=== PATIENT | female | born 1940 | race Two or more races ===

== ENCOUNTER 2016-10-05 11:41 | Inpatient (IN) | payer MEDICARE ==
[~2016-10-05] VITALS: Ht 160 cm; Wt 68.0 kg
[2016-10-05] MEDS ORDERED: VITAMIN D22000 UNIT PO (11:49)
[2016-10-05] MEDS ORDERED: LEVOTHYROXINE88 MCG ORAL (11:49)
[2016-10-05] MEDS ORDERED: IBUPROFEN600 MG ORAL (11:49)
[2016-10-05] MEDS ORDERED: NORCO 5-325 TA1 EACH ORAL (11:49)
[2016-10-05 12:19] VITALS: BP 150/72
--- NOTE | 2016-10-05 12:26 | Emergency Room Report ---
History of Present Illness General Chief Complaint: Altered Level of Consciousness Source: EMS Present Illness HPI Patient was brought in by paramedics Her portable patient was found in front of a lawn unclear if this was the patient's lawn or other Patient herself is confused and cannot provide full history She had paperwork from [place] For a recent discharge Otherwise no reports of trauma at the scene as far as any bleeding There was no reports of vomiting or diarrhea History of present illness significantly limited given the patient's mentation Allergies: Coded Allergies: No Known Allergies (Unverified , 10/05/16) Patient History Past Medical History: see triage record Pertinent Family History: none Reviewed Nursing Documentation: PMH: Agreed, PSxH: Agreed Nursing Documentation-PMH Past Medical History: Deferred Review of Systems All Other Systems: limited - Other than the ones mentioned in the history of present illness all others are reviewed however they do stay limited due to the patient's mental status Physical Exam Vital Signs Date Time Temp Pulse Resp B/P Pulse Ox O2 Delivery O2 Flow Rate FiO2 10/05/16 11:41 96.6 88 24 150/72 100 Room Air Sp02 EP Interpretation: reviewed, normal General Appearance: no apparent distress Head: normocephalic, atraumatic, other - There was a mild ecchymosis right upper maxillary area Eyes: bilateral eye EOMI, bilateral eye PERRL - Pupils approximately 2 mm and sluggishly reactive ENT: normal pharynx, no angioedema Neck: supple Respiratory: lungs clear, normal breath sounds Cardiovascular #1: regular rate, rhythm Gastrointestinal: non tender, soft Musculoskeletal: swelling - On reevaluation also pain joint discomfort on the right upper shoulder, other - Patient with a trying from physical stimuli, protecting airway Neurologic: responsive Skin: no rash, warm/dry Lymphatic: no adenopathy Procedures Splinting Splinting : Consent: Verbal Pre-Made Type: velcro Splint: Shoulder immobilizer Pre-Proc Neuro Vasc Exam: normal Post-Proc Neuro Vasc Exam: normal Patient Tolerated: Well Complications: None Medical Decision Making Diagnostic Impression: Primary Impression: Syncope Additional Impressions: Shoulder fracture, right Orbital wall fracture Hypokalemia ER Course Patient is complex with multiple differentials considered including but not limited to intracranial, cardiac, metabolic infectious pathology Requiring multiple imaging and blood work Patient's right shoulder x-ray does show findings of acute fracture CT head does not show any acute hemorrhage however there is a inferior wall fracture patient does maintain full range of motion of the eyes Blood work reveals low potassium which was replaced patient further IV hydrated Multiple abnormalities found in requires admission for further care Labs Test 10/05/16 12:09 10/05/16 13:30 White Blood Count 7.6 K/UL (4.8-10.8) Red Blood Count 4.15 M/UL (4.20-5.40) Hemoglobin 10.1 G/DL (12.0-16.0) Hematocrit 32.9 % (37.0-47.0) Mean Corpuscular Volume 79 FL (80-99) Mean Corpuscular Hemoglobin 24.2 PG (27.0-31.0) Mean Corpuscular Hemoglobin Concent 30.5 G/DL (32.0-36.0) Red Cell Distribution Width 18.3 % (11.6-14.8) Platelet Count 302 K/UL (150-450) Mean Platelet Volume 6.4 FL (6.5-10.1) Neutrophils (%) (Auto) 65.0 % (45.0-75.0) Lymphocytes (%) (Auto) 27.4 % (20.0-45.0) Monocytes (%) (Auto) 5.6 % (1.0-10.0) Eosinophils (%) (Auto) 0.8 % (0.0-3.0) Basophils (%) (Auto) 1.3 % (0.0-2.0) Prothrombin Time 10.2 SEC (9.30-11.50) Prothromb Time International Ratio 1.0 (0.9-1.1) Activated Partial Thromboplast Time 25 SEC (23-33) Urine Color Pale yellow Urine Appearance Clear Urine pH 7 (4.5-8.0) Urine Specific [place] 1.010 (1.005-1.035) Urine Protein Negative (NEGATIVE) Urine Glucose (UA) Negative (NEGATIVE) Urine Ketones Negative (NEGATIVE) Urine Occult Blood Negative (NEGATIVE) Urine Nitrite Negative (NEGATIVE) Urine Bilirubin Negative (NEGATIVE) Urine Urobilinogen Normal MG/DL (0.0-1.0) Urine Leukocyte Esterase Negative (NEGATIVE) Sodium Level 140 mEQ/L (135-145) Potassium Level 2.9 mEQ/L (3.4-4.9) Chloride Level 100 mEQ/L (98-107) Carbon Dioxide Level 20 mEQ/L (20-30) Anion Gap 20 (5-15) Blood Urea Nitrogen 11 mg/dL (7-23) Creatinine 0.7 mg/dL (0.5-0.9) Estimat Glomerular Filtration Rate mL/min (>60) Glucose Level 176 mg/dL (74-106) Lactic Acid Level 3.60 mmol/L (0.66-2.22) 2.20 mmol/L (0.66-2.22) Calcium Level 9.1 mg/dL (8.6-10.2) Total Bilirubin < 0.2 mg/dL (0.0-1.2) Aspartate Amino Transf (AST/SGOT) 19 U/L (5-40) Alanine Aminotransferase (ALT/SGPT) 18 U/L (3-33) Alkaline Phosphatase 95 U/L (35-104) Total Creatine Kinase 83 U/L (26-140) Creatine Kinase MB < 1.5 ng/mL (< 3.8) Creatine Kinase MB Relative Index 1.8 Troponin I < 0.30 ng/mL (<=0.30) Pro-B-Type Natriuretic Peptide 200 pg/mL (0-450) Total Protein 6.6 g/dL (6.6-8.7) Albumin 3.8 g/dL (3.5-5.2) Globulin 2.8 g/dL Albumin/Globulin Ratio 1.3 (1.0-2.7) Lipase 28 U/L (< 60) Rhythm Strip Diag. Results EP Interpretation: yes Rate: 88 Rhythm: NSR, no PVC's, no ectopy Chest X-Ray Diagnostic Results EP Interpretation: Yes Findings: no consolidation, no effusion, no pneumothorax, other - right shoulder fracture Other X-Ray Diagnostic Results Other X-Ray Diagnostic Results : EP Interpretation: Yes Findings: no soft tissue swelling, other - Comminuted right proximal humeral head fracture, displacement, no obvious foreign body Number of Views: 3 - right shoulder CT/MRI/US Diagnostic Results CT/MRI/US Diagnostic Results : Impression CT head: No acute bleed, right inferior orbital wall fracture CT abdomen pelvisImpression: Suspected right colitis. Please correlate clinically. No abscess. Atherosclerotic vascular disease Hiatal hernia Basilar atelectasis and/or fibrosis. Nonspecific hypodensity in the liver probably a cyst. Old compression fracture of the L2 vertebra. Mild diverticulosis of the colon Last Vital Signs Date Time Temp Pulse Resp B/P Pulse Ox O2 Delivery O2 Flow Rate FiO2 10/05/16 12:19 96.6 88 24 150/72 100 Room Air Status: improved Disposition: ADMITTED INPATIENT Condition: Serious ELVIA SPRINGER D.O. Oct 05, 2016 12:26
[2016-10-05 12:34] LABS: APPEARANCE,URINE CLEAR; KETONES,URINE NEGATIVE (NEGATIVE); LEUKOCYTE ESTERASE ,URINE NEGATIVE (NEGATIVE); NITRITE,URINE NEGATIVE (NEGATIVE); PH,URINE 7 (4.5-8.0); PROTEIN,URINE NEGATIVE (NEGATIVE); UROBILINOGEN,URINE NORMAL MG/DL (0.0-1.0)
[2016-10-05 12:37] LABS: BASOPHILS % (AUTO) 1.3 % (0.0-2.0); EOSINOPHILS % (AUTO) 0.8 % (0.0-3.0); LYMPHOCYTES % (AUTO) 27.4 % (20.0-45.0); MEAN CORPUSCULAR HEMOGLOBIN 24.2 PG (27.0-31.0); MEAN CORPUSCULAR HGB CONC 30.5 G/DL (32.0-36.0); MEAN CORPUSCULAR VOLUME 79 FL (80-99); MEAN PLATELET VOLUME 6.4 FL (6.5-10.1); MONOCYTES % (AUTO) 5.6 % (1.0-10.0); PLATELET COUNT 302 K/UL (150-450); RED BLOOD COUNT 4.15 M/UL (4.20-5.40); RED CELL DISTRIBUTION WIDTH 18.3 % (11.6-14.8); WHITE BLOOD COUNT 7.6 K/UL (4.8-10.8)
[2016-10-05 12:47] LABS: PROTHROMBIN TIME 10.2 SEC (9.30-11.50)
[2016-10-05 12:49] LABS: TROPONIN I < 0.30 ng/mL (<=0.30)
[2016-10-05 12:54] LABS: ALANINE AMINOTRANSFERASE 18 U/L (3-33); ALBUMIN/GLOBULIN RATIO 1.3 (1.0-2.7); ANION GAP 20 (5-15); ASPARTATE AMINO TRANSFERASE 19 U/L (5-40); CALCIUM 9.1 mg/dL (8.6-10.2); CARBON DIOXIDE 20 mEQ/L (20-30); CHLORIDE 100 mEQ/L (98-107); CREATININE 0.7 mg/dL (0.5-0.9); HEMOLYSIS 4; LIPASE 28 U/L (< 60); POTASSIUM 2.9 mEQ/L (3.4-4.9); SODIUM 140 mEQ/L (135-145); TOTAL PROTEIN 6.6 g/dL (6.6-8.7)
[2016-10-05 12:57] LABS: REFLEX LACTIC ACID YES OR NO YES
[2016-10-05 13:04] LABS: CKMB < 1.5 ng/mL (< 3.8)
--- NOTE | 2016-10-05 13:04 | Diagnostic Imaging Report ---
Indication: Altered Mental status Technique: Contiguous 5 mm thick transaxial imaging of the head obtained in a Siemens Sensation [address] scanner. Soft tissue and bone windows generated. Total Dose length Product (DLP): [address] Dose Index Volume (CTDIvol): 70.38 mGy Comparison: none Findings: There is moderate prominence of the ventricles, basal cisterns, and cerebral sulci consistent with atrophy. Moderate, nonspecific, white matter hypoattenuation is noted throughout the brain consistent with chronic small vessel disease. There is no midline shift, edema, acute hemorrhage, mass effect, or abnormal extra-axial fluid collections. There is a fracture of the floor of the right orbit. There is mild depression of the floor of the orbit. Air-fluid/blood level noted within the right maxillary sinus. The acuity of the injury is not known. Please correlate clinically. There is no obvious facial or periorbital contusion identified. Impression: Fracture of the floor of the right orbit, acute indeterminate. Could be acute. Please correlate clinically. No acute intracranial bleed, mass effect or edema. Moderate atrophy of the brain. Evidence of chronic small vessel disease involving white matter tracts. The CT scanner at [facility] is accredited by the [employer] and the scans are performed using protocols designed to limit radiation exposure to as low as reasonably achievable to attain images of sufficient resolution adequate for diagnostic evaluation.
--- NOTE | 2016-10-05 13:40 | Diagnostic Imaging Report ---
Indication: Pain Findings: 3 views of the right shoulder were obtained. There is a comminuted fracture of the right humeral neck with involvement and slight displacement of the greater tuberosity. Impression: Acute humeral neck fracture
--- NOTE | 2016-10-05 14:14 | Diagnostic Imaging Report ---
Indication: Abdominal pain Technique: Continuous helical transaxial imaging of the abdomen and pelvis was obtained from the lung bases to the pubic symphysis during intravenous contrast administration. Coronal 2-D reformats were also obtained. Study obtained in a Siemens sensation [address] Total Dose length Product (DLP): [address] Dose Index Volume (CTDIvol): 20 mGy Comparison: None Findings: There is mild posterior basilar reticular density present likely atelectasis. Mild degree of fibrosis not excluded. Hiatal hernia is present. There is a less than one CM hypodensity within the right lobe of the liver. The spleen, pancreas, kidneys appear unremarkable. Gallbladder is absent. There is no free fluid or free air. Some diverticula noted in the colon. There is apparent thickening of the wall of the right hemicolon including the hepatic flexure ascending colon and cecum. Findings suspicious for colitis. Please correlate clinically. There is no abscess identified. This there is a compression fracture of the superior endplate of L2. Narrowing of the L1-2 and L2-3 discs with vacuum phenomena noted. Impression: Suspected right colitis. Please correlate clinically. No abscess. Atherosclerotic vascular disease Hiatal hernia Basilar atelectasis and/or fibrosis. Nonspecific hypodensity in the liver probably a cyst. Old compression fracture of the L2 vertebra. Mild diverticulosis of the colon The CT scanner at [facility] is accredited by the [employer] and the scans are performed using protocols designed to limit radiation exposure to as low as reasonably achievable to attain images of sufficient resolution adequate for diagnostic evaluation.
[2016-10-05 14:30] VITALS: BP_SYST 168; BP_SYST 174; BP_DIAS 84; BP_DIAS 89
[2016-10-05 15:30] VITALS: BP 184/97
[2016-10-05] MEDS ORDERED: Milk of Magnesia 30ml Ud ORAL PRN (15:30)
[2016-10-05] MEDS ORDERED: Nitroglycerin Subl 0.4mg tab (Bottle Of 25) SL PRN (15:30)
[2016-10-05] MEDS ORDERED: Norco 5mg/325mg tab ORAL PRN (15:30)
[2016-10-05] MEDS ORDERED: Miralax 17gm pkt ORAL PRN (15:30)
--- NOTE | 2016-10-05 15:58 | History & Physical ---
History and Physical History & Physicial job # [id number] Josafat Berry MD Oct 05, 2016 15:58
--- NOTE | 2016-10-05 16:12 | Diagnostic Imaging Report ---
Indication: Chest Pain Comparison: None A single view chest radiograph was obtained. Findings: No definite infiltrate or pulmonary vascular congestion identified. The heart is enlarged. The aorta is mildly enlarged consistent with atherosclerotic vascular disease. The bones are osteopenic. There is a fracture of the right humeral neck. Impression: No acute disease
[2016-10-05 16:18] VITALS: BP 154/89
[2016-10-05] MEDS: D5 1/2NS w/KCl 20mEq 1,000 ML IV SCH (18:00)
[2016-10-05] MEDS: Morphine Sulfate 2mg/ml Inj IVP PRN (18:07)
[2016-10-05 20:00] VITALS: BP 151/81
--- NOTE | 2016-10-05 21:28 | History and Physical Report ---
DATE OF ADMISSION: 10/05/2016 CHIEF COMPLAINT: Altered mental status and loss consciousness. HISTORY OF PRESENT ILLNESS: This is a 76-year-old, female with past medical history significant for hypothyroidism who presented to the hospital after was found down on the neighbor's lawn. The patient was confused and cannot remember what is going on. She has a paperwork from the recent hospitalization at the [facility]. Discharge instructions noted. The patient was treated for the bronchitis, no antibiotics, mostly viral and subsequently, the patient was discharged home after she had the influenza A and B, and blood tests done and advised to follow up with the primary doctor within three days. These instructions were given to the patient for 08/06/2016. History is very limited secondary to the patient's status. History is mostly taken from the patient who is a poor historian as well. No prior history was available. PAST MEDICAL HISTORY: As above. History of hypothyroidism. PAST SURGICAL HISTORY: As above. MEDICATIONS AT HOME: Significant for Synthroid as well as ibuprofen, Motrin, and [place]. ALLERGIES: No known drug allergies. SOCIAL HISTORY: The patient stated that she drinks occasionally. No substance use. She lives at home by herself. FAMILY HISTORY: Noncontributory. REVIEW OF SYSTEMS: Very limited secondary to the patient's status. Denies any chest pain or shortness of breath. Denies any headache. Denies any suicidal or homicidal ideation. Denies any loss of consciousness. She does not remember why she is here and what happened to her. PHYSICAL EXAMINATION: VITAL SIGNS: On admission, temperature 96.8, pulse of 88, respirations 24, and blood pressure 150/72. GENERAL: The patient is awake, responsive, not in acute distress. HEAD AND NECK: Pupils are equal and reactive to light. Extraocular movements are intact. The patient has ecchymosis around the maxillary area, it is noted in the periorbital area. Neck is supple. No JVD. LUNGS: Good air entry. No wheezing or rales. HEART: S1 and S2. Regular rhythm. No gallops. ABDOMEN: Soft, nontender, and nondistended. No rebound tenderness. No fluid shift. EXTREMITIES: No cyanosis, clubbing, or edema. Right shoulder tenderness on palpation and limited range of motion. NEUROLOGICAL: Cranial nerves II through XII are grossly intact. The patient is moving all extremities except the right shoulder due to pain. Gait is steady. LABORATORY AND DIAGNOSTIC DATA: Laboratories on admission from the ER, sodium 140, potassium 2.9, chloride 100, bicarbonate 20, BUN 11, creatinine 0.7, and glucose is 176. First lactic acid is 3.60 and second one is 2.2. Calcium is 9.1. AST of 19 and ALT of 18. Troponin less than 0.30 and ProBNP of 200. PT 10, INR 1.0, and PTT of 25. Urinalysis unremarkable. WBC of 7.6, hemoglobin 10.1, hematocrit 32, and platelets 302,000. EKG, normal sinus rhythm at a rate of 83, no ST elevation, first degree AV block. The patient had a CT of the brain, noted the patient has a fracture of the floor of the right orbit, acute indeterminate, could be acute, possible correlation clinically. No acute intracranial bleed, mass effect, or edema. Moderate atrophy of the brain. Evidence of chronic small vessel disease was noted within the white matter. The patient has a chest x-ray, unremarkable. No acute cardiopulmonary disease. ASSESSMENT: 1. Syncopal episode with altered mental status, possibly due to the severe dehydration. 2. Hypokalemia. 3. Status post facial injury with orbital floor fracture. 4. Right shoulder fracture with acute humerus neck fracture. PLAN: Admit the patient to telemetry. We will follow up laboratory and 2D echo. Pain medication. Aggressive hydration. We will follow up with Physical Therapy recommendation. Discussed with Dr. Prince Benitez, Orthopedics, as well as Dr. Amando Street from Cardiology. Josafat Berry M.D. DR: SYMONE JOB#: [id number] CC:
[2016-10-05] MEDS: Docusate 100mg tablet ORAL SCH (22:52)
[2016-10-05] MEDS: Heparin 5000 units/ml inj SUBQ SCH (22:53)
[2016-10-06 00:04] VITALS: BP 139/83
[2016-10-06 04:01] VITALS: BP 131/79
[2016-10-06] MEDS: D5 1/2NS w/KCl 20mEq 1,000 ML IV SCH ×2 (06:01→21:37)
[2016-10-06 08:12] LABS: BASOPHILS % (AUTO) 0.7 % (0.0-2.0); EOSINOPHILS % (AUTO) 0.7 % (0.0-3.0); LYMPHOCYTES % (AUTO) 28.1 % (20.0-45.0); MEAN CORPUSCULAR HEMOGLOBIN 24.2 PG (27.0-31.0); MEAN CORPUSCULAR HGB CONC 30.6 G/DL (32.0-36.0); MEAN CORPUSCULAR VOLUME 79 FL (80-99); MEAN PLATELET VOLUME 6.2 FL (6.5-10.1); MONOCYTES % (AUTO) 5.5 % (1.0-10.0); PLATELET COUNT 274 K/UL (150-450); RED BLOOD COUNT 3.77 M/UL (4.20-5.40); RED CELL DISTRIBUTION WIDTH 17.7 % (11.6-14.8); WHITE BLOOD COUNT 9.4 K/UL (4.8-10.8)
[2016-10-06 08:22] LABS: PROTHROMBIN TIME 10.6 SEC (9.30-11.50)
[2016-10-06 08:26] LABS: ALANINE AMINOTRANSFERASE 16 U/L (3-33); ALBUMIN/GLOBULIN RATIO 1.4 (1.0-2.7); ANION GAP 17 (5-15); ASPARTATE AMINO TRANSFERASE 16 U/L (5-40); CALCIUM 8.9 mg/dL (8.6-10.2); CARBON DIOXIDE 24 mEQ/L (20-30); CHLORIDE 101 mEQ/L (98-107); CREATININE 0.6 mg/dL (0.5-0.9); HEMOLYSIS 0; MAGNESIUM 1.8 mg/dL (1.7-2.5); PHOSPHORUS 2.9 mg/dL (2.5-4.8); POTASSIUM 3.4 mEQ/L (3.4-4.9); SODIUM 142 mEQ/L (135-145); TOTAL PROTEIN 6.3 g/dL (6.6-8.7); TROPONIN I < 0.30 ng/mL (<=0.30)
[2016-10-06] MEDS: Heparin 5000 units/ml inj SUBQ SCH ×2 (09:01→21:36)
[2016-10-06] MEDS: Docusate 100mg tablet ORAL SCH ×2 (09:01→21:35)
--- NOTE | 2016-10-06 09:14 | Consultation ---
Consult Note Consult Note 76 yo female found down for undetermined amount of time with Rt humerus fracture currently sleeping, just had medication per nurse Rt UE in sling, difficult to assess neuro status Xray reviewed Rt Humerus fracture 1. NO need for surgical intervention 2. Sling 3. gentle ROM of elbow/hand/wrist. pendulum exercises Rt shoulder 4. F/u Dr Veras in office for serial Xray CHARLEY TORRES Oct 06, 2016 09:14
[2016-10-06] MEDS: Morphine Sulfate 2mg/ml Inj IVP PRN ×3 (10:50→21:46)
[2016-10-06 12:00] VITALS: BP 122/82
--- NOTE | 2016-10-06 12:12 | Internal Med Progress Note ---
Subjective Date of Service: Oct 06, 2016 Physician Name Ganesh Matias Attending Physician Josafat Berry MD Current Medications Medications (Trade) Dose Ordered Sig/Lorna Route PRN Reason Start Time Stop Time Status Last Admin Dose Admin Acetaminophen (Tylenol) 650 mg Q4H PRN ORAL Mild Pain (Pain Scale 1-3) 10/05/16 15:30 11/04/16 15:29 Acetaminophen/ Hydrocodone Bitart ([place] 5/325) 1 tab Q4HR PRN ORAL for mod pain 10/05/16 15:30 10/12/16 15:29 Dextrose (Dextrose 50%) STAT PRN IV Hypoglycemia 10/05/16 15:30 11/04/16 15:29 Dextrose/ Electrolytes (D5 0.45%NS W/ KCl 20mEq) 1,000 ml @ 75 mls/hr [id number] IV 10/05/16 17:30 11/04/16 17:29 10/06/16 06:01 Docusate Sodium (Colace) 100 mg EVERY 12 HOURS ORAL 10/05/16 21:00 11/04/16 20:59 10/06/16 09:01 Heparin Sodium (Porcine) (Heparin 5000 units/ml) 5,000 units EVERY 12 HOURS SUBQ 10/05/16 21:00 11/04/16 20:59 10/06/16 09:01 Magnesium Hydroxide (Mom) 30 ml HSPRN PRN ORAL Constipation 10/05/16 15:30 11/04/16 15:29 Morphine Sulfate (Morphine Sulfate) 2 mg Q4HR PRN IVP Severe Pain (Pain Scale 7-10) 10/05/16 15:30 10/12/16 15:29 10/06/16 10:50 Nitroglycerin (Ntg) 0.4 mg Q5M PRN SL Prn Chest Pain 10/05/16 15:30 11/04/16 15:29 Ondansetron HCl (Zofran) 4 mg Q6H PRN IVP Nausea & Vomiting 10/05/16 15:30 11/04/16 15:29 Polyethylene Glycol (Miralax) 17 gm DAILYPRN PRN ORAL Constipation 10/05/16 15:30 11/04/16 15:29 Allergies: Coded Allergies: No Known Allergies (Unverified , 10/05/16) ROS Limited/Unobtainable: No Constitutional: Reports: no symptoms HEENT: Reports: no symptoms Cardiovascular: Reports: no symptoms Respiratory: Reports: no symptoms Gastrointestinal/Abdominal: Reports: no symptoms Genitourinary: Reports: no symptoms Neurologic/Psychiatric: Reports: other - confused Subjective 76 YO F admitted with syncope. Now right humeral neck fracture and right orbital floor fracture. Cover for Int Med-Dr Berry. Objective Last Vital Signs Date Time Temp Pulse Resp B/P Pulse Ox O2 Delivery O2 Flow Rate FiO2 10/06/16 08:00 98.2 89 20 85 Room Air General Appearance: WD/WN, mild distress, lethargic EENT: PERRL/EOMI, normal ENT inspection Neck: non-tender, normal alignment, supple, normal inspection Cardiovascular: normal peripheral pulses, normal rate, regular rhythm, no gallop/murmur, no JVD Respiratory/Chest: chest wall non-tender, lungs clear, normal breath sounds, no respiratory distress, no accessory muscle use Abdomen: normal bowel sounds, non tender, soft, no organomegaly, no mass Extremities: other - Right arm sling Neurologic: yarding engineer II-XII grossly normal, no motor/sensory deficits Skin: normal pigmentation, warm/dry Laboratory Tests Test 10/05/16 12:09 10/05/16 13:30 10/06/16 07:21 White Blood Count 7.6 K/UL (4.8-10.8) 9.4 K/UL (4.8-10.8) Red Blood Count 4.15 M/UL (4.20-5.40) L 3.77 M/UL (4.20-5.40) L Hemoglobin 10.1 G/DL (12.0-16.0) L 9.1 G/DL (12.0-16.0) L Hematocrit 32.9 % (37.0-47.0) L 29.8 % (37.0-47.0) L Mean Corpuscular Volume 79 FL (80-99) L 79 FL (80-99) L Mean Corpuscular Hemoglobin 24.2 PG (27.0-31.0) L 24.2 PG (27.0-31.0) L Mean Corpuscular Hemoglobin Concent 30.5 G/DL (32.0-36.0) L 30.6 G/DL (32.0-36.0) L Red Cell Distribution Width 18.3 % (11.6-14.8) H 17.7 % (11.6-14.8) H Platelet Count 302 K/UL (150-450) 274 K/UL (150-450) Mean Platelet Volume 6.4 FL (6.5-10.1) L 6.2 FL (6.5-10.1) L Neutrophils (%) (Auto) 65.0 % (45.0-75.0) 65.0 % (45.0-75.0) Lymphocytes (%) (Auto) 27.4 % (20.0-45.0) 28.1 % (20.0-45.0) Monocytes (%) (Auto) 5.6 % (1.0-10.0) 5.5 % (1.0-10.0) Eosinophils (%) (Auto) 0.8 % (0.0-3.0) 0.7 % (0.0-3.0) Basophils (%) (Auto) 1.3 % (0.0-2.0) 0.7 % (0.0-2.0) Prothrombin Time 10.2 SEC (9.30-11.50) 10.6 SEC (9.30-11.50) Prothromb Time International Ratio 1.0 (0.9-1.1) 1.0 (0.9-1.1) Activated Partial Thromboplast Time 25 SEC (23-33) 26 SEC (23-33) Urine Color Pale yellow Urine Appearance Clear Urine pH 7 (4.5-8.0) Urine Specific [place] 1.010 (1.005-1.035) Urine Protein Negative (NEGATIVE) Urine Glucose (UA) Negative (NEGATIVE) Urine Ketones Negative (NEGATIVE) Urine Occult Blood Negative (NEGATIVE) Urine Nitrite Negative (NEGATIVE) Urine Bilirubin Negative (NEGATIVE) Urine Urobilinogen Normal MG/DL (0.0-1.0) Urine Leukocyte Esterase Negative (NEGATIVE) Sodium Level 140 mEQ/L (135-145) 142 mEQ/L (135-145) Potassium Level 2.9 mEQ/L (3.4-4.9) L 3.4 mEQ/L (3.4-4.9) Chloride Level 100 mEQ/L (98-107) 101 mEQ/L (98-107) Carbon Dioxide Level 20 mEQ/L (20-30) 24 mEQ/L (20-30) Anion Gap 20 (5-15) H 17 (5-15) H Blood Urea Nitrogen 11 mg/dL (7-23) 10 mg/dL (7-23) Creatinine 0.7 mg/dL (0.5-0.9) 0.6 mg/dL (0.5-0.9) Estimat Glomerular Filtration Rate mL/min (>60) mL/min (>60) Glucose Level 176 mg/dL (74-106) H 114 mg/dL (74-106) H Lactic Acid Level 3.60 mmol/L (0.66-2.22) H 2.20 mmol/L (0.66-2.22) Calcium Level 9.1 mg/dL (8.6-10.2) 8.9 mg/dL (8.6-10.2) Total Bilirubin < 0.2 mg/dL (0.0-1.2) 0.2 mg/dL (0.0-1.2) Aspartate Amino Transf (AST/SGOT) 19 U/L (5-40) 16 U/L (5-40) Alanine Aminotransferase (ALT/SGPT) 18 U/L (3-33) 16 U/L (3-33) Alkaline Phosphatase 95 U/L (35-104) 95 U/L (35-104) Total Creatine Kinase 83 U/L (26-140) Creatine Kinase MB < 1.5 ng/mL (< 3.8) Creatine Kinase MB Relative Index 1.8 Troponin I < 0.30 ng/mL (<=0.30) < 0.30 ng/mL (<=0.30) Pro-B-Type Natriuretic Peptide 200 pg/mL (0-450) Total Protein 6.6 g/dL (6.6-8.7) 6.3 g/dL (6.6-8.7) L Albumin 3.8 g/dL (3.5-5.2) 3.7 g/dL (3.5-5.2) Globulin 2.8 g/dL 2.6 g/dL Albumin/Globulin Ratio 1.3 (1.0-2.7) 1.4 (1.0-2.7) Lipase 28 U/L (< 60) Phosphorus Level 2.9 mg/dL (2.5-4.8) Magnesium Level 1.8 mg/dL (1.7-2.5) Microbiology Date/Time Source Procedure Growth Status 10/05/16 12:09 Blood Blood Culture - Preliminary Gram Positive Cocci Resulted Intake and Output 10/05/16 10/06/16 19:00 07:00 Intake Total 200 ml 1065 ml Output Total 350 ml Balance -150 ml 1065 ml Intake Oral 125 ml 240 ml IV Total 75 ml 825 ml Output Urine Total 350 ml # Voids 2 2 Assessment/Plan Problem List: (1) Altered mental status (2) Hypothyroidism Assessment & Plan: Cont synthroid. (3) Humeral surgical neck fracture Assessment & Plan: Non-surgical. See ortho note. (4) Orbital floor (blow-out) closed fracture (5) Syncope Assessment & Plan: Await cardiology and neurology consult. Await Serial troponin, Carotid duplex dopplrer, MRI brain. R/O acute CT vs CVA Status: not improved GANESH MATIAS Oct 06, 2016 12:12
--- NOTE | 2016-10-06 12:53 | General Progress Note ---
Assessment/Plan Assessment/Plan ASSESSMENT s Subjective Allergies: Coded Allergies: No Known Allergies (Unverified , 10/05/16) Objective Last 24 Hour Vital Signs Date Time Temp Pulse Resp B/P Pulse Ox O2 Delivery O2 Flow Rate FiO2 10/06/16 08:00 98.2 89 20 85 Room Air 10/06/16 04:23 76 10/06/16 04:01 98.4 81 20 131/79 96 Room Air 10/06/16 00:04 98.8 86 18 139/83 94 Room Air 10/05/16 23:38 88 10/05/16 20:00 97.7 79 20 151/81 Room Air 10/05/16 20:00 86 10/05/16 16:18 84 21 154/89 100 Room Air 10/05/16 15:46 96.6 99 26 184/97 100 Room Air 10/05/16 15:30 99 26 184/97 100 Room Air 10/05/16 14:30 89 22 168/84 100 Room Air 10/05/16 14:30 97 18 174/89 100 Room Air Intake and Output 10/05/16 10/06/16 19:00 07:00 Intake Total 200 ml 1065 ml Output Total 350 ml Balance -150 ml 1065 ml Intake Oral 125 ml 240 ml IV Total 75 ml 825 ml Output Urine Total 350 ml # Voids 2 2 Laboratory Tests 10/05/16 13:30: Lactic Acid Level 2.20 10/06/16 07:21: White Blood Count 9.4, Red Blood Count 3.77L, Hemoglobin 9.1L, Hematocrit 29.8L , Mean Corpuscular Volume 79L, Mean Corpuscular Hemoglobin 24.2L, Mean Corpuscular Hemoglobin Concent 30.6L, Red Cell Distribution Width 17.7H, Platelet Count 274, Mean Platelet Volume 6.2L, Neutrophils (%) (Auto) 65.0, Lymphocytes (%) (Auto) 28.1, Monocytes (%) (Auto) 5.5, Eosinophils (%) (Auto) 0.7, Basophils (%) (Auto) 0.7, Prothrombin Time 10.6, Prothromb Time International Ratio 1.0, Activated Partial Thromboplast Time 26, Sodium Level 142, Potassium Level 3.4, Chloride Level 101, Carbon Dioxide Level 24, Anion Gap 17H, Blood Urea Nitrogen 10, Creatinine 0.6, Estimat Glomerular Filtration Rate , Glucose Level 114H, Calcium Level 8.9, Phosphorus Level 2.9, Magnesium Level 1.8, Total Bilirubin 0.2, Aspartate Amino Transf (AST/SGOT) 16, Alanine Aminotransferase (ALT/SGPT) 16, Alkaline Phosphatase 95, Troponin I < 0.30, Total Protein 6.3L, Albumin 3.7, Globulin 2.6, Albumin/Globulin Ratio 1.4 Height (Feet): 5 Height (Inches): 3.00 Weight (Pounds): 150 Tono (Marthaaggie)Aaliyah NP Oct 06, 2016 12:53
--- NOTE | 2016-10-06 13:00 | Neurology Progress Note ---
Interim History Interim History ROS Limited/Unobtainable: No Objective Physical Exam Last Vital Signs Date Time Temp Pulse Resp B/P Pulse Ox O2 Delivery O2 Flow Rate FiO2 10/06/16 08:00 98.2 89 20 85 Room Air Laboratory Tests Test 10/05/16 13:30 10/06/16 07:21 Lactic Acid Level 2.20 mmol/L (0.66-2.22) White Blood Count 9.4 K/UL (4.8-10.8) Red Blood Count 3.77 M/UL (4.20-5.40) L Hemoglobin 9.1 G/DL (12.0-16.0) L Hematocrit 29.8 % (37.0-47.0) L Mean Corpuscular Volume 79 FL (80-99) L Mean Corpuscular Hemoglobin 24.2 PG (27.0-31.0) L Mean Corpuscular Hemoglobin Concent 30.6 G/DL (32.0-36.0) L Red Cell Distribution Width 17.7 % (11.6-14.8) H Platelet Count 274 K/UL (150-450) Mean Platelet Volume 6.2 FL (6.5-10.1) L Neutrophils (%) (Auto) 65.0 % (45.0-75.0) Lymphocytes (%) (Auto) 28.1 % (20.0-45.0) Monocytes (%) (Auto) 5.5 % (1.0-10.0) Eosinophils (%) (Auto) 0.7 % (0.0-3.0) Basophils (%) (Auto) 0.7 % (0.0-2.0) Prothrombin Time 10.6 SEC (9.30-11.50) Prothromb Time International Ratio 1.0 (0.9-1.1) Activated Partial Thromboplast Time 26 SEC (23-33) Sodium Level 142 mEQ/L (135-145) Potassium Level 3.4 mEQ/L (3.4-4.9) Chloride Level 101 mEQ/L (98-107) Carbon Dioxide Level 24 mEQ/L (20-30) Anion Gap 17 (5-15) H Blood Urea Nitrogen 10 mg/dL (7-23) Creatinine 0.6 mg/dL (0.5-0.9) Estimat Glomerular Filtration Rate mL/min (>60) Glucose Level 114 mg/dL (74-106) H Calcium Level 8.9 mg/dL (8.6-10.2) Phosphorus Level 2.9 mg/dL (2.5-4.8) Magnesium Level 1.8 mg/dL (1.7-2.5) Total Bilirubin 0.2 mg/dL (0.0-1.2) Aspartate Amino Transf (AST/SGOT) 16 U/L (5-40) Alanine Aminotransferase (ALT/SGPT) 16 U/L (3-33) Alkaline Phosphatase 95 U/L (35-104) Troponin I < 0.30 ng/mL (<=0.30) Total Protein 6.3 g/dL (6.6-8.7) L Albumin 3.7 g/dL (3.5-5.2) Globulin 2.6 g/dL Albumin/Globulin Ratio 1.4 (1.0-2.7) Impression/Recommendations Problems: (1) Altered mental status (2) Orbital floor (blow-out) closed fracture (3) Hypothyroidism (4) Humeral surgical neck fracture (5) Depression Status: not improved Recommendations #[id number] TUNG KEENE Oct 06, 2016 13:00
--- NOTE | 2016-10-06 14:52 | Consultation ---
History of Present Illness General Date patient seen: Oct 06, 2016 Time patient seen: 12:00 Chief Complaint: Altered Level of Consciousness Referring physician: dr Berry Reason for Consultation: in hospital management Present Illness HPI 76 y/old patient was brought in by paramedics patient was found in front of a lawn unclear if this was the patient's lawn or other Patient herself was confused and unable to provide full history No reports of trauma /injury at the scene, no bleeding Patient denied chest pain, SOB No reports of vomiting or diarrhea Workup in ED revealed acute R humerus neck fracture CT head no acute intracranial bleeding, but c/w closed orbital floor fracture splint was applied to R UE patient was admitted for further management Allergies: Coded Allergies: No Known Allergies (Unverified , 10/05/16) Medication History Scheduled Ergocalciferol (Vitamin D2) (Vitamin D2), 50,000 UNIT PO QWEEK, (Reported) Levothyroxine Sodium* (Levothyroxine Sodium*), 88 MCG ORAL DAILY, (Reported) Scheduled PRN Hydrocodone Bit/Acetaminophen 5-325* ([place] 5-325*), 1 TAB ORAL Q6H PRN for For Pain, (Reported) Ibuprofen* (Motrin*), 600 MG ORAL Q6H PRN for For Pain, (Reported) Patient History History Provided By: Medical Record Healthcare decision maker Resuscitation status Full Code Advanced Directive on File Past Medical/Surgical History Past Medical/Surgical History: (1) Altered mental status (2) Hypothyroidism (3) Syncope (4) Depression Review of Systems ROS Narrative unable to obtain due to ALOC Physical Exam General Appearance: no apparent distress, alert, confused Lines, tubes and drains: peripheral HEENT: normocephalic, anicteric, mucous membranes moist, EOMI, supple, no JVD Neck: non-tender, supple, normal inspection Respiratory/Chest: lungs clear, no respiratory distress, no accessory muscle use Cardiovascular/Chest: normal rate, regular rhythm - SR on tele Abdomen: normal bowel sounds, non tender, soft Extremities: no calf tenderness, normal capillary refill, other - R UE with sling, neurovascular intact Neurologic: alert, responsive - confused Last 24 Hour Vital Signs Date Time Temp Pulse Resp B/P Pulse Ox O2 Delivery O2 Flow Rate FiO2 10/06/16 12:00 97.7 78 20 122/82 97 Room Air 10/06/16 12:00 87 10/06/16 08:00 90 10/06/16 08:00 98.2 89 20 85 Room Air 10/06/16 04:23 76 10/06/16 04:01 98.4 81 20 131/79 96 Room Air 10/06/16 00:04 98.8 86 18 139/83 94 Room Air 10/05/16 23:38 88 10/05/16 20:00 97.7 79 20 151/81 Room Air 10/05/16 20:00 86 10/05/16 16:18 84 21 154/89 100 Room Air 10/05/16 15:46 96.6 99 26 184/97 100 Room Air 10/05/16 15:30 99 26 184/97 100 Room Air Intake and Output 10/05/16 10/06/16 19:00 07:00 Intake Total 200 ml 1065 ml Output Total 350 ml Balance -150 ml 1065 ml Intake Oral 125 ml 240 ml IV Total 75 ml 825 ml Output Urine Total 350 ml # Voids 2 2 Laboratory Tests Test 10/06/16 07:21 White Blood Count 9.4 K/UL (4.8-10.8) Red Blood Count 3.77 M/UL (4.20-5.40) L Hemoglobin 9.1 G/DL (12.0-16.0) L Hematocrit 29.8 % (37.0-47.0) L Mean Corpuscular Volume 79 FL (80-99) L Mean Corpuscular Hemoglobin 24.2 PG (27.0-31.0) L Mean Corpuscular Hemoglobin Concent 30.6 G/DL (32.0-36.0) L Red Cell Distribution Width 17.7 % (11.6-14.8) H Platelet Count 274 K/UL (150-450) Mean Platelet Volume 6.2 FL (6.5-10.1) L Neutrophils (%) (Auto) 65.0 % (45.0-75.0) Lymphocytes (%) (Auto) 28.1 % (20.0-45.0) Monocytes (%) (Auto) 5.5 % (1.0-10.0) Eosinophils (%) (Auto) 0.7 % (0.0-3.0) Basophils (%) (Auto) 0.7 % (0.0-2.0) Prothrombin Time 10.6 SEC (9.30-11.50) Prothromb Time International Ratio 1.0 (0.9-1.1) Activated Partial Thromboplast Time 26 SEC (23-33) Sodium Level 142 mEQ/L (135-145) Potassium Level 3.4 mEQ/L (3.4-4.9) Chloride Level 101 mEQ/L (98-107) Carbon Dioxide Level 24 mEQ/L (20-30) Anion Gap 17 (5-15) H Blood Urea Nitrogen 10 mg/dL (7-23) Creatinine 0.6 mg/dL (0.5-0.9) Estimat Glomerular Filtration Rate mL/min (>60) Glucose Level 114 mg/dL (74-106) H Calcium Level 8.9 mg/dL (8.6-10.2) Phosphorus Level 2.9 mg/dL (2.5-4.8) Magnesium Level 1.8 mg/dL (1.7-2.5) Total Bilirubin 0.2 mg/dL (0.0-1.2) Aspartate Amino Transf (AST/SGOT) 16 U/L (5-40) Alanine Aminotransferase (ALT/SGPT) 16 U/L (3-33) Alkaline Phosphatase 95 U/L (35-104) Troponin I < 0.30 ng/mL (<=0.30) Total Protein 6.3 g/dL (6.6-8.7) L Albumin 3.7 g/dL (3.5-5.2) Globulin 2.6 g/dL Albumin/Globulin Ratio 1.4 (1.0-2.7) Height (Feet): 5 Height (Inches): 3.00 Weight (Pounds): 150 Medications Current Medications Medications (Trade) Dose Ordered Sig/Lorna Route PRN Reason Start Time Stop Time Status Last Admin Dose Admin Acetaminophen (Tylenol) 650 mg Q4H PRN ORAL Mild Pain (Pain Scale 1-3) 10/05/16 15:30 11/04/16 15:29 Acetaminophen/ Hydrocodone Bitart ([place] 5/325) 1 tab Q4HR PRN ORAL for mod pain 10/05/16 15:30 10/12/16 15:29 Dextrose (Dextrose 50%) STAT PRN IV Hypoglycemia 10/05/16 15:30 11/04/16 15:29 Dextrose/ Electrolytes (D5 0.45%NS W/ KCl 20mEq) 1,000 ml @ 75 mls/hr [id number] IV 10/05/16 17:30 11/04/16 17:29 10/06/16 06:01 Docusate Sodium (Colace) 100 mg EVERY 12 HOURS ORAL 10/05/16 21:00 11/04/16 20:59 10/06/16 09:01 Heparin Sodium (Porcine) (Heparin 5000 units/ml) 5,000 units EVERY 12 HOURS SUBQ 10/05/16 21:00 11/04/16 20:59 10/06/16 09:01 Magnesium Hydroxide (Mom) 30 ml HSPRN PRN ORAL Constipation 10/05/16 15:30 11/04/16 15:29 Morphine Sulfate (Morphine Sulfate) 2 mg Q4HR PRN IVP Severe Pain (Pain Scale 7-10) 10/05/16 15:30 10/12/16 15:29 10/06/16 10:50 Nitroglycerin (Ntg) 0.4 mg Q5M PRN SL Prn Chest Pain 10/05/16 15:30 11/04/16 15:29 Ondansetron HCl (Zofran) 4 mg Q6H PRN IVP Nausea & Vomiting 10/05/16 15:30 11/04/16 15:29 Polyethylene Glycol (Miralax) 17 gm DAILYPRN PRN ORAL Constipation 10/05/16 15:30 11/04/16 15:29 Vancomycin HCl 1 ea 1 ea DAILY MISC 10/06/16 14:00 11/05/16 13:59 Vancomycin HCl/ Dextrose (Vancomycin/D5W) 275 ml @ 183.708 mls/hr Q24H IVPB 10/06/16 16:00 10/11/16 15:59 Assessment/Plan Assessment/Plan ASSESSMENT SYNCOPE ACUTE ENCEPHALOPATHY SEVERE DEHYDRATION HYPOTHYROIDISM HYPOKALEMIA S/P FACIA INJURY WITH ORBITAL FLOOR CLOSED FRACTURE R HUMERUS NECK FRACTURE ANEMIA DEPRESSION PLAN OF CARE tele CT head with R inferior orbital wall closed fracture, no acute bleeding syncope workup no evidence of arrhythmia, CT head negative, no evidence of seizure syncope, possibly vasovagal in origin check orthostatic VS neuro follows O2 HHN prn CXR negative 2 D Echo aggressive IVF surgery consult noted and appreciated no need for surgery per surgery ok to start gentle ROM elbow/hand/wrist. pendulum exercises Rt shoulder continue sling office fup as outpt for X ray fall precautions PT eval and rx ortho consult noted cardio eval CTA/P suspected R colitis, no abscess, basilar atelectasis vs fibrosis DVT prophylaxis pain management case discussed and evaluated by supervising physician Tono (Michele),Aaliyah CROOK Oct 06, 2016 14:51
[2016-10-06 16:00] VITALS: BP 134/84
[2016-10-06] MEDS: Vancomycin 1gm/D5W 275ml IVPB SCH ×2 (16:20)
--- NOTE | 2016-10-06 19:38 | Consultation ---
DATE OF CONSULTATION: 10/06/2016 CONSULTING PHYSICIAN: Prince Benitez M.D. REFERRING PHYSICIAN: Josafat Berry M.D. HISTORY OF PRESENT ILLNESS: The patient is a 76-year-old female who apparently was found down in her neighbor's lawn for an undetermined amount of time. She had altered mental status at that time and complained of right shoulder pain. She was transferred to [facility] ER where she was noted to have a right humerus fracture. Orthopedics consult has been called for question of need for surgery. The patient is a poor historian, and currently asleep after having just received medication from nursing staff. History is obtained via chart. PAST MEDICAL HISTORY: Hypothyroidism. PAST SURGICAL HISTORY: None. CURRENT MEDICATIONS: Synthroid. Please see chart for additional medications. ALLERGIES: None. SOCIAL HISTORY: Apparently, the patient lives at home by herself and she does drink. FAMILY HISTORY: Noncontributory. REVIEW OF SYSTEMS: Unable to be obtained. PHYSICAL EXAMINATION: The patient is sleeping and does not wake up to exam. She is in an upper extremity sling. There is some mild bruising around the shoulder. No significant bruising to the hands. She has good capillary refill, although neurologic exam is difficult due to her somnolence. DIAGNOSTIC DATA: X-ray of the shoulder and humerus are reviewed. There is an acute right humerus fracture that is comminuted, but minimally displaced. There is no evidence of dislocation. IMPRESSION: Right comminuted and minimally displaced humerus and greater tuberosity fracture of the right arm. DISCUSSION: At this time, I discussed with the nursing staff that the patient would not require surgery for this. This will go onto healing. She can remain in the sling. We will have physical therapy see her for gentle range of motion of elbow and wrist, and gentle pendulum exercises about the shoulder. We will see her in the office in seven to ten days for followup, at which point, we will obtain serial x-rays to monitor healing and likely transition her to outpatient physical therapy in two weeks' time. Nursing was notified of the plan and chart was reviewed to find family information, although there is no contact available. She also noted that no family visitors. If you have any questions or concerns, please do not hesitate to contact me. Thank you for allowing me to participate in the care of this patient. Prince Benitez M.D. Mary Jean-Baptiste DR: ROSALIA JOB#: [id number] CC: RAE
[2016-10-06 20:04] VITALS: BP 131/66
--- NOTE | 2016-10-06 21:39 | Cardiology Progress Note ---
Assessment/Plan Assessment/Plan The patient is seen and examined, full consult note will be dictated. Objective Last 24 Hour Vital Signs Date Time Temp Pulse Resp B/P Pulse Ox O2 Delivery O2 Flow Rate FiO2 10/06/16 20:04 99.0 91 22 131/66 93 Room Air 10/06/16 16:00 100 10/06/16 16:00 98.2 84 22 134/84 93 Room Air 10/06/16 12:00 97.7 78 20 122/82 97 Room Air 10/06/16 12:00 87 10/06/16 08:00 90 10/06/16 08:00 98.2 89 20 85 Room Air 10/06/16 04:23 76 10/06/16 04:01 98.4 81 20 131/79 96 Room Air 10/06/16 00:04 98.8 86 18 139/83 94 Room Air 10/05/16 23:38 88 Intake and Output 10/05/16 10/06/16 19:00 07:00 Intake Total 200 ml 1065 ml Output Total 350 ml Balance -150 ml 1065 ml Intake Oral 125 ml 240 ml IV Total 75 ml 825 ml Output Urine Total 350 ml # Voids 2 2 Laboratory Tests Test 10/06/16 07:21 White Blood Count 9.4 K/UL (4.8-10.8) Red Blood Count 3.77 M/UL (4.20-5.40) L Hemoglobin 9.1 G/DL (12.0-16.0) L Hematocrit 29.8 % (37.0-47.0) L Mean Corpuscular Volume 79 FL (80-99) L Mean Corpuscular Hemoglobin 24.2 PG (27.0-31.0) L Mean Corpuscular Hemoglobin Concent 30.6 G/DL (32.0-36.0) L Red Cell Distribution Width 17.7 % (11.6-14.8) H Platelet Count 274 K/UL (150-450) Mean Platelet Volume 6.2 FL (6.5-10.1) L Neutrophils (%) (Auto) 65.0 % (45.0-75.0) Lymphocytes (%) (Auto) 28.1 % (20.0-45.0) Monocytes (%) (Auto) 5.5 % (1.0-10.0) Eosinophils (%) (Auto) 0.7 % (0.0-3.0) Basophils (%) (Auto) 0.7 % (0.0-2.0) Prothrombin Time 10.6 SEC (9.30-11.50) Prothromb Time International Ratio 1.0 (0.9-1.1) Activated Partial Thromboplast Time 26 SEC (23-33) Sodium Level 142 mEQ/L (135-145) Potassium Level 3.4 mEQ/L (3.4-4.9) Chloride Level 101 mEQ/L (98-107) Carbon Dioxide Level 24 mEQ/L (20-30) Anion Gap 17 (5-15) H Blood Urea Nitrogen 10 mg/dL (7-23) Creatinine 0.6 mg/dL (0.5-0.9) Estimat Glomerular Filtration Rate mL/min (>60) Glucose Level 114 mg/dL (74-106) H Calcium Level 8.9 mg/dL (8.6-10.2) Phosphorus Level 2.9 mg/dL (2.5-4.8) Magnesium Level 1.8 mg/dL (1.7-2.5) Total Bilirubin 0.2 mg/dL (0.0-1.2) Aspartate Amino Transf (AST/SGOT) 16 U/L (5-40) Alanine Aminotransferase (ALT/SGPT) 16 U/L (3-33) Alkaline Phosphatase 95 U/L (35-104) Troponin I < 0.30 ng/mL (<=0.30) Total Protein 6.3 g/dL (6.6-8.7) L Albumin 3.7 g/dL (3.5-5.2) Globulin 2.6 g/dL Albumin/Globulin Ratio 1.4 (1.0-2.7) Microbiology Date/Time Source Procedure Growth Status 10/05/16 12:09 Blood Blood Culture - Preliminary Gram Positive Cocci Resulted CLEO RILEY Oct 06, 2016 21:39
--- NOTE | 2016-10-06 22:18 | Consultation ---
DATE OF CONSULTATION: 10/06/2016 NEUROLOGICAL CONSULTATION CONSULTING PHYSICIAN: Gerson Guerrier M.D. REQUESTING PHYSICIAN: Josafat Berry M.D. HISTORY OF PRESENT ILLNESS: The patient is a 76-year-old female, seen in neurological consultation to evaluate new changes in mental status, head trauma. The patient is unable to provide with a full history. This was compiled from medical records that the patient was found by paramedics lying in front of a lawn, being very confused, and being unable to provide with information. Apparently, she was only recently discharged from [facility]. On admission, vital signs were stable. Blood pressure 150/72 and temperature 96.6. On initial workup, the patient had a strong evidence of face and head trauma as well as inability to move her right arm with acute pain. Her initial assessment included a CAT scan of the brain revealing a fracture floor of the right orbit, undetermined acuteness. There were no masses or lesions. No midline shift. There was a moderate atrophy and chronic small vessel disease. X-rays of the right shoulder revealed acute humeral neck fracture with a slight displacement. CT of the abdomen and pelvis suspected right colitis, atherosclerotic vascular disease noted, old compression fracture L2. Laboratory work included CBC study with mild anemia, hemoglobin 10.1 and hematocrit 32.9. Coagulation panel was normal. Urinalysis was negative. Chemistry panel, potassium 2.9 and blood sugar 176. Anion gap of 20. Following admission until present, she was able to transfer to the chair with assistance of physical therapist. She was able to provide with a very brief history stating that family is denying having children, and being unable to describe any medical issues. Apparently prior to admission, she was on hydrocodone p.r.n., vitamin D, Motrin, and levothyroxine. SOCIAL HISTORY: Unavailable. FAMILY HISTORY: Unavailable. REVIEW OF SYSTEMS: Unable to obtain due to the patient's status. PHYSICAL EXAMINATION: GENERAL: A well-developed, well-nourished, elderly female, lying in bed with eyes open. VITAL SIGNS: Stable. Blood pressure 131/79, pulse oximetry was 85, and heart rate of 89. HEENT: Head is normocephalic. There is an acute pain on slight touch in the right periorbital region. There is ecchymosis and some slight swelling in the right frontotemporal area. No otorrhea. No rhinorrhea noted. NECK: Supple. EXTREMITIES: Right arm placed in a sling, acute pain with any attempt to move her right arm. Both lower extremities without clubbing, cyanosis, or edema. No deformities. MENTAL STATUS: The patient is alert. Has a brief eye contact. She informed that she has depression, slight dizziness, but denies having headache, admits having pain at the injury site, nodding no on questions if she has chest pain, palpitations, or respiratory difficulties. CRANIAL NERVE II: Pupils both responding to light and accommodation. Extraocular movement intact. No nystagmus. CRANIAL NERVE V: Normal corneal responses. CRANIAL NERVE VII: Slight facial asymmetry. CRANIAL NERVE VIII: Normal hearing. CRANIAL NERVES X THROUGH XII: Within normal limits. MOTOR EXAMINATION: Able to move left upper extremity unrestricted, maintain right arm flexed in a sling, able to lift against gravity both lower extremities. Deep reflexes depressed bilaterally. Plantar response is mute. No pathological responses. SENSORY EXAMINATION: Withdrawing to pin stimulation in all limbs. Gait not tested. IMPRESSION: 1. History of transient confusional state, rule out dehydration, rule out preexistent psychiatric disorder. 2. Depression. 3. Status post face and head blunt injury with orbital floor fracture, right humeral neck fracture acute. 4. History of hypothyroidism. 5. Hypoglycemia. RECOMMENDATION: 1. Start cardiac monitoring for cardiac arrhythmia. 2. Carotid duplex. 3. 2D echocardiogram. 4. Attempt to contact family to obtain additional information and medical information. 5. Zoloft 25 mg daily. 6. Fall precaution. 7. PT/OT and speech therapy. 8. Aspirin 81 mg daily. Thank you for allowing me to see this interesting patient in neurological consultation. Gerson Guerrier M.D. DR: KAMRYN JOB#: [id number] CC:
[2016-10-07] VITALS: BP 142/86
[2016-10-07 04:00] VITALS: BP 135/76
[2016-10-07] MEDS: D5 1/2NS w/KCl 20mEq 1,000 ML IV SCH ×2 (04:46→20:17)
[2016-10-07 07:38] VITALS: BP 139/79
[2016-10-07 07:41] LABS: BASOPHILS % (AUTO) 0.5 % (0.0-2.0); EOSINOPHILS % (AUTO) 0.5 % (0.0-3.0); LYMPHOCYTES % (AUTO) 27.2 % (20.0-45.0); MEAN CORPUSCULAR HEMOGLOBIN 24.2 PG (27.0-31.0); MEAN CORPUSCULAR HGB CONC 31.2 G/DL (32.0-36.0); MEAN CORPUSCULAR VOLUME 78 FL (80-99); MONOCYTES % (AUTO) 5.6 % (1.0-10.0); NEUTROPHILS % (AUTO) 66.2 % (45.0-75.0); PLATELET COUNT 259 K/UL (150-450); RED BLOOD COUNT 3.72 M/UL (4.20-5.40); RED CELL DISTRIBUTION WIDTH 17.5 % (11.6-14.8); WHITE BLOOD COUNT 10.9 K/UL (4.8-10.8)
[2016-10-07 07:56] LABS: ANION GAP 17 (5-15); CALCIUM 8.8 mg/dL (8.6-10.2); CARBON DIOXIDE 23 mEQ/L (20-30); CHLORIDE 98 mEQ/L (98-107); CREATININE 0.5 mg/dL (0.5-0.9); HEMOLYSIS 1; POTASSIUM 3.7 mEQ/L (3.4-4.9); SODIUM 138 mEQ/L (135-145); TROPONIN I < 0.30 ng/mL (<=0.30)
[2016-10-07] MEDS: Docusate 100mg tablet ORAL SCH ×2 (08:29→20:17)
[2016-10-07] MEDS: Morphine Sulfate 2mg/ml Inj IVP PRN ×3 (08:29→22:30)
[2016-10-07] MEDS: Heparin 5000 units/ml inj SUBQ SCH ×2 (08:30→20:21)
[2016-10-07 12:00] VITALS: BP 149/74
--- NOTE | 2016-10-07 12:58 | Internal Med Progress Note ---
Subjective Date of Service: Oct 07, 2016 Physician Name Ganesh Matias Attending Physician Josafat Berry MD Current Medications Medications (Trade) Dose Ordered Sig/Lorna Route PRN Reason Start Time Stop Time Status Last Admin Dose Admin Acetaminophen (Tylenol) 650 mg Q4H PRN ORAL Mild Pain (Pain Scale 1-3) 10/05/16 15:30 11/04/16 15:29 Acetaminophen/ Hydrocodone Bitart 1 tab 1 tab Q4HR PRN ORAL for mod pain 10/05/16 15:30 10/12/16 15:29 Dextrose (Dextrose 50%) STAT PRN IV Hypoglycemia 10/05/16 15:30 11/04/16 15:29 Dextrose/ Electrolytes (D5 0.45%NS W/ KCl 20mEq) 1,000 ml @ 75 mls/hr [id number] IV 10/05/16 17:30 11/04/16 17:29 10/07/16 04:46 Docusate Sodium (Colace) 100 mg EVERY 12 HOURS ORAL 10/05/16 21:00 11/04/16 20:59 10/07/16 08:29 Heparin Sodium (Porcine) (Heparin 5000 units/ml) 5,000 units EVERY 12 HOURS SUBQ 10/05/16 21:00 11/04/16 20:59 10/07/16 08:30 Magnesium Hydroxide (Mom) 30 ml HSPRN PRN ORAL Constipation 10/05/16 15:30 11/04/16 15:29 Morphine Sulfate (Morphine Sulfate) 2 mg Q4HR PRN IVP Severe Pain (Pain Scale 7-10) 10/05/16 15:30 10/12/16 15:29 10/07/16 08:29 Nitroglycerin (Ntg) 0.4 mg Q5M PRN SL Prn Chest Pain 10/05/16 15:30 11/04/16 15:29 Ondansetron HCl (Zofran) 4 mg Q6H PRN IVP Nausea & Vomiting 10/05/16 15:30 11/04/16 15:29 Polyethylene Glycol (Miralax) 17 gm DAILYPRN PRN ORAL Constipation 10/05/16 15:30 11/04/16 15:29 Vancomycin HCl (Vanco rx to dose) 1 ea DAILY PRN MISC RX TO DOSE 10/06/16 21:45 11/05/16 13:59 Vancomycin HCl/ Dextrose (Vancomycin/D5W) 275 ml @ 183.708 mls/hr Q24H IVPB 10/06/16 16:00 10/11/16 15:59 10/06/16 16:20 Allergies: Coded Allergies: No Known Allergies (Unverified , 10/05/16) ROS Limited/Unobtainable: No Constitutional: Reports: no symptoms HEENT: Reports: no symptoms Cardiovascular: Reports: no symptoms Respiratory: Reports: no symptoms Gastrointestinal/Abdominal: Reports: no symptoms Genitourinary: Reports: no symptoms Neurologic/Psychiatric: Reports: no symptoms Subjective 76 YO F admitted with syncope. Now right humeral neck fracture and right orbital floor fracture. Cover for Int Med-Dr Berry. 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, no motor/sensory deficits Skin: normal pigmentation, warm/dry Laboratory Tests Test 10/07/16 05:29 White Blood Count 10.9 K/UL (4.8-10.8) H Red Blood Count 3.72 M/UL (4.20-5.40) L Hemoglobin 9.0 G/DL (12.0-16.0) L Hematocrit 28.9 % (37.0-47.0) L Mean Corpuscular Volume 78 FL (80-99) L Mean Corpuscular Hemoglobin 24.2 PG (27.0-31.0) L Mean Corpuscular Hemoglobin Concent 31.2 G/DL (32.0-36.0) L Red Cell Distribution Width 17.5 % (11.6-14.8) H Platelet Count 259 K/UL (150-450) Mean Platelet Volume 6.0 FL (6.5-10.1) L Neutrophils (%) (Auto) 66.2 % (45.0-75.0) Lymphocytes (%) (Auto) 27.2 % (20.0-45.0) Monocytes (%) (Auto) 5.6 % (1.0-10.0) Eosinophils (%) (Auto) 0.5 % (0.0-3.0) Basophils (%) (Auto) 0.5 % (0.0-2.0) Sodium Level 138 mEQ/L (135-145) Potassium Level 3.7 mEQ/L (3.4-4.9) Chloride Level 98 mEQ/L (98-107) Carbon Dioxide Level 23 mEQ/L (20-30) Anion Gap 17 (5-15) H Blood Urea Nitrogen 13 mg/dL (7-23) Creatinine 0.5 mg/dL (0.5-0.9) Estimat Glomerular Filtration Rate mL/min (>60) Glucose Level 120 mg/dL (74-106) H Calcium Level 8.8 mg/dL (8.6-10.2) Troponin I < 0.30 ng/mL (<=0.30) Microbiology Date/Time Source Procedure Growth Status 10/05/16 12:09 Blood Blood Culture - Preliminary Gram Positive Cocci Resulted 10/05/16 12:09 Blood Blood Culture - Preliminary Resulted Intake and Output 10/06/16 10/07/16 19:00 07:00 Intake Total 1680 ml Output Total 400 ml Balance 1280 ml Intake Oral 780 ml IV Total 900 ml Output Urine Total 400 ml # Voids 1 Assessment/Plan Problem List: (1) Altered mental status Assessment & Plan: Await MRI brain and carotid duplex doppler. See neurology consult. (2) Hypothyroidism Assessment & Plan: Cont synthroid. (3) Humeral surgical neck fracture Assessment & Plan: Non-surgical. See ortho note. (4) Orbital floor (blow-out) closed fracture Assessment & Plan: Await plastic surgery consult. (5) Syncope Assessment & Plan: See cardiology and neurology consults. Await Serial troponin, Carotid duplex dopplrer, MRI brain. R/O acute OK vs CVA Status: not improved GANESH MATIAS Oct 07, 2016 12:58
[2016-10-07] MEDS ORDERED: Cefepime HCl 1 GM in NS 55 ML IVPB SCH (14:00)
--- NOTE | 2016-10-07 15:45 | Pulmonology Progress Note ---
Assessment/Plan Assessment/Plan ASSESSMENT SYNCOPE ACUTE ENCEPHALOPATHY transient confusional state, rule out dehydration, rule out preexistent psychiatric disorder. SEVERE DEHYDRATION HYPOTHYROIDISM HYPOKALEMIA S/P FACIAL INJURY WITH ORBITAL FLOOR CLOSED FRACTURE R HUMERUS NECK FRACTURE ANEMIA DEPRESSION PLAN OF CARE tele CT head with R inferior orbital wall closed fracture, no acute bleeding troponin x 2 negative, ECG no ST changes, cardio follows, r/o for acute [place] no evidence of arrhythmia, CT head negative, no evidence of seizure syncope, possibly vasovagal in origin orthostatic VS - no evidence of orthostatic changes neuro follows O2 HHN prn CXR negative 2 D Echo with EF 60-65% Carotid Dupelx aggressive IVF neuro added low dose of antidepressant surgery consult noted and appreciated no need for surgery per surgery ok to start gentle ROM elbow/hand/wrist. pendulum exercises Rt shoulder continue sling office fup as outpt for X ray fall precautions PT eval and Rx CTA/P suspected R colitis, no abscess, basilar atelectasis vs fibrosis DVT prophylaxis pain management case discussed and evaluated by supervising physician Subjective Allergies: Coded Allergies: No Known Allergies (Unverified , 10/05/16) Objective Last 24 Hour Vital Signs Date Time Temp Pulse Resp B/P Pulse Ox O2 Delivery O2 Flow Rate FiO2 10/07/16 12:00 98.8 99 20 149/74 96 Room Air 10/07/16 12:00 94 10/07/16 08:00 89 10/07/16 07:38 82 10/07/16 07:38 98.2 89 19 139/79 96 Room Air 10/07/16 07:37 89 10/07/16 04:00 98.1 82 18 135/76 98 Room Air 10/07/16 04:00 85 10/07/16 00:00 99.1 86 18 142/86 96 Room Air 10/07/16 00:00 86 10/06/16 20:04 99.0 91 22 131/66 93 Room Air 10/06/16 20:00 91 10/06/16 16:00 100 10/06/16 16:00 98.2 84 22 134/84 93 Room Air Intake and Output 10/06/16 10/07/16 19:00 07:00 Intake Total 1680 ml Output Total 400 ml Balance 1280 ml Intake Oral 780 ml IV Total 900 ml Output Urine Total 400 ml # Voids 1 Objective General Appearance: no apparent distress, alert, confused Lines, tubes and drains: peripheral HEENT: normocephalic, anicteric, mucous membranes moist, EOMI, supple, no JVD Neck: non-tender, supple, normal inspection Respiratory/Chest: lungs clear, no respiratory distress, no accessory muscle use Cardiovascular/Chest: normal rate, regular rhythm - SR on tele Abdomen: normal bowel sounds, non tender, soft Extremities: no calf tenderness, normal capillary refill, other - R UE with sling, neurovascular intact Neurologic: alert, responsive - confused Microbiology Date/Time Source Procedure Growth Status 10/05/16 12:09 Blood Blood Culture - Preliminary Gram Positive Cocci Resulted 10/05/16 12:09 Blood Blood Culture - Preliminary Resulted Laboratory Tests 10/07/16 05:29: White Blood Count 10.9H, Red Blood Count 3.72L, Hemoglobin 9.0L, Hematocrit 28.9L, Mean Corpuscular Volume 78L, Mean Corpuscular Hemoglobin 24.2L, Mean Corpuscular Hemoglobin Concent 31.2L, Red Cell Distribution Width 17.5H, Platelet Count 259, Mean Platelet Volume 6.0L, Neutrophils (%) (Auto) 66.2, Lymphocytes (%) (Auto) 27.2, Monocytes (%) (Auto) 5.6, Eosinophils (%) (Auto) 0.5, Basophils (%) (Auto) 0.5, Sodium Level 138, Potassium Level 3.7, Chloride Level 98, Carbon Dioxide Level 23, Anion Gap 17H, Blood Urea Nitrogen 13, Creatinine 0.5, Estimat Glomerular Filtration Rate , Glucose Level 120H, Calcium Level 8.8, Troponin I < 0.30 Current Medications Medications (Trade) Dose Ordered Sig/Lorna Route PRN Reason Start Time Stop Time Status Last Admin Dose Admin Acetaminophen (Tylenol) 650 mg Q4H PRN ORAL Mild Pain (Pain Scale 1-3) 10/05/16 15:30 11/04/16 15:29 Acetaminophen/ Hydrocodone Bitart 1 tab 1 tab Q4HR PRN ORAL for mod pain 10/05/16 15:30 10/12/16 15:29 Cefepime HCl/ Sodium Chloride (Maxipime/Sodium Chloride) 55 ml @ 110 mls/hr Q24H IVPB 10/07/16 14:00 10/14/16 13:59 10/07/16 14:09 Dextrose (Dextrose 50%) STAT PRN IV Hypoglycemia 10/05/16 15:30 11/04/16 15:29 Dextrose/ Electrolytes (D5 0.45%NS W/ KCl 20mEq) 1,000 ml @ 75 mls/hr [id number] IV 10/05/16 17:30 11/04/16 17:29 10/07/16 04:46 Docusate Sodium (Colace) 100 mg EVERY 12 HOURS ORAL 10/05/16 21:00 11/04/16 20:59 10/07/16 08:29 Heparin Sodium (Porcine) (Heparin 5000 units/ml) 5,000 units EVERY 12 HOURS SUBQ 10/05/16 21:00 11/04/16 20:59 10/07/16 08:30 Magnesium Hydroxide (Mom) 30 ml HSPRN PRN ORAL Constipation 10/05/16 15:30 11/04/16 15:29 Morphine Sulfate (Morphine Sulfate) 2 mg Q4HR PRN IVP Severe Pain (Pain Scale 7-10) 10/05/16 15:30 10/12/16 15:29 10/07/16 08:29 Nitroglycerin (Ntg) 0.4 mg Q5M PRN SL Prn Chest Pain 10/05/16 15:30 11/04/16 15:29 Ondansetron HCl (Zofran) 4 mg Q6H PRN IVP Nausea & Vomiting 10/05/16 15:30 11/04/16 15:29 Polyethylene Glycol (Miralax) 17 gm DAILYPRN PRN ORAL Constipation 10/05/16 15:30 11/04/16 15:29 Vancomycin HCl 1 ea 1 ea DAILY PRN MISC RX TO DOSE 10/06/16 21:45 11/05/16 13:59 Vancomycin HCl/ Dextrose (Vancomycin/D5W) 275 ml @ 183.708 mls/hr Q24H IVPB 10/06/16 16:00 10/11/16 15:59 10/06/16 16:20 Aaliyah Power NP (Vanchtein) Oct 07, 2016 15:45
[2016-10-07 16:00] VITALS: BP 132/78
[2016-10-07] MEDS: Vancomycin 1gm/D5W 275ml IVPB SCH ×2 (16:03)
[2016-10-07] MEDS ORDERED: Tubing IV Secondary IV ONE (17:01)
[2016-10-07] MEDS ORDERED: NS 275ml ONE (17:01)
[2016-10-07 20:00] VITALS: BP 113/69
--- NOTE | 2016-10-07 23:51 | Cardiology Progress Note ---
Assessment/Plan Assessment/Plan 1. Presumed syncope with soft tissue injury and right orbital fracture as well as right humeral fracture. Hypovolemia is most likely the etiology of the syncope, 2D echo reveals normal LV function with normal intracardiac filling pressure. Keep hydrated, electrolyte correction. 2. Hypothyroidism 3. Anemia Subjective Subjective Sinus tachycardia at 103. Denies chest pain or SOB. Objective Last 24 Hour Vital Signs Date Time Temp Pulse Resp B/P Pulse Ox O2 Delivery O2 Flow Rate FiO2 10/07/16 21:00 96 93 10/07/16 20:00 98.2 90 20 113/69 97 Room Air 10/07/16 20:00 105 10/07/16 16:00 106 10/07/16 16:00 98.1 82 20 132/78 97 Room Air 10/07/16 12:00 98.8 99 20 149/74 96 Room Air 10/07/16 12:00 94 10/07/16 08:00 89 10/07/16 07:38 82 10/07/16 07:38 98.2 89 19 139/79 96 Room Air 10/07/16 07:37 89 10/07/16 04:00 98.1 82 18 135/76 98 Room Air 10/07/16 04:00 85 10/07/16 00:00 99.1 86 18 142/86 96 Room Air 10/07/16 00:00 86 Intake and Output 10/06/16 10/07/16 19:00 07:00 Intake Total 1680 ml Output Total 400 ml Balance 1280 ml Intake Oral 780 ml IV Total 900 ml Output Urine Total 400 ml # Voids 1 2D Echo: LVEF 60-65%, Grade I LVDD Laboratory Tests Test 10/07/16 05:29 White Blood Count 10.9 K/UL (4.8-10.8) H Red Blood Count 3.72 M/UL (4.20-5.40) L Hemoglobin 9.0 G/DL (12.0-16.0) L Hematocrit 28.9 % (37.0-47.0) L Mean Corpuscular Volume 78 FL (80-99) L Mean Corpuscular Hemoglobin 24.2 PG (27.0-31.0) L Mean Corpuscular Hemoglobin Concent 31.2 G/DL (32.0-36.0) L Red Cell Distribution Width 17.5 % (11.6-14.8) H Platelet Count 259 K/UL (150-450) Mean Platelet Volume 6.0 FL (6.5-10.1) L Neutrophils (%) (Auto) 66.2 % (45.0-75.0) Lymphocytes (%) (Auto) 27.2 % (20.0-45.0) Monocytes (%) (Auto) 5.6 % (1.0-10.0) Eosinophils (%) (Auto) 0.5 % (0.0-3.0) Basophils (%) (Auto) 0.5 % (0.0-2.0) Sodium Level 138 mEQ/L (135-145) Potassium Level 3.7 mEQ/L (3.4-4.9) Chloride Level 98 mEQ/L (98-107) Carbon Dioxide Level 23 mEQ/L (20-30) Anion Gap 17 (5-15) H Blood Urea Nitrogen 13 mg/dL (7-23) Creatinine 0.5 mg/dL (0.5-0.9) Estimat Glomerular Filtration Rate mL/min (>60) Glucose Level 120 mg/dL (74-106) H Calcium Level 8.8 mg/dL (8.6-10.2) Troponin I < 0.30 ng/mL (<=0.30) Microbiology Date/Time Source Procedure Growth Status 10/05/16 12:09 Blood Blood Culture - Preliminary Gram Positive Cocci Resulted 10/05/16 12:09 Blood Blood Culture - Preliminary Resulted Objective HEENT: Pupils are equal and reactive to light. Extraocular movements are intact, Ecchymosis around the maxillary and periorbital areas NECK: No JVD, no carotid bruit with upstroke 2+ B/L LUNGS: clear with no rales HEART: Normal S1 and S2. Regular, rate and rhythm. No gallops, murmurs or rubs. ABDOMEN: Soft, nontender, and nondistended. No rebound tenderness. EXTREMITIES: No cyanosis, clubbing, or edema. Right shoulder tenderness on palpation and limited range of motion. CLEO RILEY Oct 07, 2016 23:51
[2016-10-08] VITALS (7 sets, daily range): BP systolic 110–141; BP diastolic 72–90
[2016-10-08] MEDS: Morphine Sulfate 2mg/ml Inj IVP PRN ×7 (04:20→21:47)
[2016-10-08] MEDS: Docusate 100mg tablet ORAL SCH ×2 (08:21→20:09)
[2016-10-08] MEDS: Heparin 5000 units/ml inj SUBQ SCH ×2 (08:23→20:09)
[2016-10-08 08:24] LABS: BASOPHILS % (AUTO) 0.5 % (0.0-2.0); EOSINOPHILS % (AUTO) 0.3 % (0.0-3.0); LYMPHOCYTES % (AUTO) 19.1 % (20.0-45.0); MEAN CORPUSCULAR HEMOGLOBIN 24.4 PG (27.0-31.0); MEAN CORPUSCULAR VOLUME 79 FL (80-99); MEAN PLATELET VOLUME 6.5 FL (6.5-10.1); MONOCYTES % (AUTO) 5.9 % (1.0-10.0); NEUTROPHILS % (AUTO) 74.1 % (45.0-75.0); PLATELET COUNT 263 K/UL (150-450); RED BLOOD COUNT 3.67 M/UL (4.20-5.40); RED CELL DISTRIBUTION WIDTH 17.9 % (11.6-14.8)
[2016-10-08 08:34] LABS: ANION GAP 15 (5-15); CALCIUM 8.9 mg/dL (8.6-10.2); CARBON DIOXIDE 24 mEQ/L (20-30); CHLORIDE 98 mEQ/L (98-107); CREATININE 0.6 mg/dL (0.5-0.9); HEMOLYSIS 0; POTASSIUM 3.9 mEQ/L (3.4-4.9); SODIUM 137 mEQ/L (135-145)
--- NOTE | 2016-10-08 10:25 | Internal Med Progress Note ---
Subjective Date of Service: Oct 08, 2016 Physician Name Cayetano Matias Attending Physician Josafat Berry MD Current Medications Medications (Trade) Dose Ordered Sig/Lorna Route PRN Reason Start Time Stop Time Status Last Admin Dose Admin Acetaminophen (Tylenol) 650 mg Q4H PRN ORAL Mild Pain (Pain Scale 1-3) 10/05/16 15:30 11/04/16 15:29 Acetaminophen/ Hydrocodone Bitart 1 tab 1 tab Q4HR PRN ORAL for mod pain 10/05/16 15:30 10/12/16 15:29 Cefepime HCl/ Sodium Chloride (Maxipime/Sodium Chloride) 55 ml @ 110 mls/hr Q24H IVPB 10/07/16 14:00 10/14/16 13:59 10/07/16 14:09 Dextrose (Dextrose 50%) STAT PRN IV Hypoglycemia 10/05/16 15:30 11/04/16 15:29 Dextrose/ Electrolytes (D5 0.45%NS W/ KCl 20mEq) 1,000 ml @ 75 mls/hr [id number] IV 10/05/16 17:30 11/04/16 17:29 10/07/16 20:17 Docusate Sodium (Colace) 100 mg EVERY 12 HOURS ORAL 10/05/16 21:00 11/04/16 20:59 10/08/16 08:21 Heparin Sodium (Porcine) (Heparin 5000 units/ml) 5,000 units EVERY 12 HOURS SUBQ 10/05/16 21:00 11/04/16 20:59 10/08/16 08:23 Magnesium Hydroxide (Mom) 30 ml HSPRN PRN ORAL Constipation 10/05/16 15:30 11/04/16 15:29 Morphine Sulfate (Morphine Sulfate) 2 mg Q4HR PRN IVP Severe Pain (Pain Scale 7-10) 10/05/16 15:30 10/12/16 15:29 10/08/16 08:28 Nitroglycerin (Ntg) 0.4 mg Q5M PRN SL Prn Chest Pain 10/05/16 15:30 11/04/16 15:29 Ondansetron HCl (Zofran) 4 mg Q6H PRN IVP Nausea & Vomiting 10/05/16 15:30 11/04/16 15:29 Polyethylene Glycol (Miralax) 17 gm DAILYPRN PRN ORAL Constipation 10/05/16 15:30 11/04/16 15:29 Vancomycin HCl 1 ea 1 ea DAILY PRN MISC RX TO DOSE 10/06/16 21:45 11/05/16 13:59 Vancomycin HCl/ Dextrose (Vancomycin/D5W) 275 ml @ 183.708 mls/hr Q24H IVPB 10/06/16 16:00 10/11/16 15:59 10/07/16 16:03 Allergies: Coded Allergies: No Known Allergies (Unverified , 10/05/16) ROS Limited/Unobtainable: No Constitutional: Reports: no symptoms HEENT: Reports: no symptoms Cardiovascular: Reports: no symptoms Respiratory: Reports: no symptoms Gastrointestinal/Abdominal: Reports: no symptoms Genitourinary: Reports: no symptoms Neurologic/Psychiatric: Reports: no symptoms Subjective 76 YO F admitted with syncope. Now right humeral neck fracture and right orbital floor fracture. Await ID consult for sepsis. Cover for Int Med-Dr Berry. Objective Last Vital Signs Date Time Temp Pulse Resp B/P Pulse Ox O2 Delivery O2 Flow Rate FiO2 10/08/16 09:05 104 10/08/16 07:30 97.7 18 141/90 97 Room Air Laboratory Tests Test 10/08/16 07:50 White Blood Count 11.0 K/UL (4.8-10.8) H Red Blood Count 3.67 M/UL (4.20-5.40) L Hemoglobin 9.0 G/DL (12.0-16.0) L Hematocrit 28.9 % (37.0-47.0) L Mean Corpuscular Volume 79 FL (80-99) L Mean Corpuscular Hemoglobin 24.4 PG (27.0-31.0) L Mean Corpuscular Hemoglobin Concent 31.0 G/DL (32.0-36.0) L Red Cell Distribution Width 17.9 % (11.6-14.8) H Platelet Count 263 K/UL (150-450) Mean Platelet Volume 6.5 FL (6.5-10.1) Neutrophils (%) (Auto) 74.1 % (45.0-75.0) Lymphocytes (%) (Auto) 19.1 % (20.0-45.0) L Monocytes (%) (Auto) 5.9 % (1.0-10.0) Eosinophils (%) (Auto) 0.3 % (0.0-3.0) Basophils (%) (Auto) 0.5 % (0.0-2.0) Sodium Level 137 mEQ/L (135-145) Potassium Level 3.9 mEQ/L (3.4-4.9) Chloride Level 98 mEQ/L (98-107) Carbon Dioxide Level 24 mEQ/L (20-30) Anion Gap 15 (5-15) Blood Urea Nitrogen 7 mg/dL (7-23) Creatinine 0.6 mg/dL (0.5-0.9) Estimat Glomerular Filtration Rate mL/min (>60) Glucose Level 134 mg/dL (74-106) H Calcium Level 8.9 mg/dL (8.6-10.2) Microbiology Date/Time Source Procedure Growth Status 10/05/16 12:09 Blood Blood Culture - Preliminary Gram Positive Cocci Resulted 10/05/16 12:09 Blood Blood Culture - Preliminary Staphylococcus Sp Coag Neg Resulted Intake and Output 10/07/16 10/08/16 19:00 07:00 Intake Total 1337.416 ml 1500 ml Output Total 300 ml Balance 1337.416 ml 1200 ml Intake Oral 240 ml IV Total 1097.416 ml 900 ml Other 600 ml Output Urine Total 300 ml # Voids 2 Objective General Appearance: WD/WN, no apparent distress, alert EENT: PERRL/EOMI, normal ENT inspection, other - contusion right eye Neck: non-tender, normal alignment, supple Cardiovascular: normal peripheral pulses, normal rate, regular rhythm Respiratory/Chest: chest wall non-tender, lungs clear, normal breath sounds Abdomen: normal bowel sounds, non tender, soft, no organomegaly, no mass Extremities: normal range of motion Neurologic: log driver II-XII grossly normal, no motor/sensory deficits Skin: normal pigmentation, warm/dry Assessment/Plan Problem List: (1) Altered mental status Assessment & Plan: Await MRI brain and carotid duplex doppler. See neurology consult. (2) Hypothyroidism Assessment & Plan: Cont synthroid. (3) Humeral surgical neck fracture Assessment & Plan: Non-surgical. See ortho note. (4) Orbital floor (blow-out) closed fracture Assessment & Plan: Await plastic surgery consult. (5) Syncope Assessment & Plan: See cardiology and neurology consults. Await Serial troponin, Carotid duplex dopplrer, MRI brain. R/O acute ND vs CVA (6) Sepsis Assessment & Plan: Coag neg matth. Await ID consult-Dr Stubbs. Continue vanco and cefepime. CAYETANO MATIAS Oct 08, 2016 10:25
--- NOTE | 2016-10-08 10:54 | Consultation ---
Consult Note Consult Note ID DIC # [id number] JOSE MANUEL VAZQUEZ M.D. Oct 08, 2016 10:54
--- NOTE | 2016-10-08 11:11 | Pulmonology Progress Note ---
Assessment/Plan Problems: (1) Shoulder fracture, right (2) Orbital wall fracture (3) Sepsis (4) Orbital floor (blow-out) closed fracture Assessment/Plan pt/ot dc iv fluid blanco culture adjust iv antibiotics 2d Echo, results pending Subjective ROS Limited/Unobtainable: No Interval Events: no new complains Constitutional: Reports: no symptoms HEENT: Repors: no symptoms Allergies: Coded Allergies: No Known Allergies (Unverified , 10/05/16) Objective Last 24 Hour Vital Signs Date Time Temp Pulse Resp B/P Pulse Ox O2 Delivery O2 Flow Rate FiO2 10/08/16 09:05 104 10/08/16 09:00 104 10/08/16 07:35 90 10/08/16 07:30 97.7 71 18 141/90 97 Room Air 10/08/16 04:40 98.2 84 20 138/75 97 Room Air 10/08/16 04:00 94 10/08/16 00:12 98.4 81 20 136/76 97 Room Air 10/08/16 00:00 85 10/07/16 21:00 96 93 10/07/16 20:00 98.2 90 20 113/69 97 Room Air 10/07/16 20:00 105 10/07/16 16:00 106 10/07/16 16:00 98.1 82 20 132/78 97 Room Air 10/07/16 12:00 98.8 99 20 149/74 96 Room Air 10/07/16 12:00 94 Intake and Output 10/07/16 10/08/16 19:00 07:00 Intake Total 1337.416 ml 1500 ml Output Total 300 ml Balance 1337.416 ml 1200 ml Intake Oral 240 ml IV Total 1097.416 ml 900 ml Other 600 ml Output Urine Total 300 ml # Voids 2 General Appearance: WD/WN HEENT: normocephalic, atraumatic Respiratory/Chest: chest wall non-tender, lungs clear Cardiovascular: normal peripheral pulses, normal rate Abdomen: normal bowel sounds, no organomegaly Genitourinary: normal external genitalia Extremities: no cyanosis Skin: no rash Neurologic/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: 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 Microbiology Date/Time Source Procedure Growth Status 10/05/16 12:09 Blood Blood Culture - Preliminary Gram Positive Cocci Resulted 10/05/16 12:09 Blood Blood Culture - Preliminary Staphylococcus Sp Coag Neg Resulted Laboratory Tests 10/08/16 07:50: White Blood Count 11.0H, Red Blood Count 3.67L, Hemoglobin 9.0L, Hematocrit 28.9L, Mean Corpuscular Volume 79L, Mean Corpuscular Hemoglobin 24.4L, Mean Corpuscular Hemoglobin Concent 31.0L, Red Cell Distribution Width 17.9H, Platelet Count 263, Mean Platelet Volume 6.5, Neutrophils (%) (Auto) 74.1, Lymphocytes (%) (Auto) 19.1L, Monocytes (%) (Auto) 5.9, Eosinophils (%) (Auto) 0.3, Basophils (%) (Auto) 0.5, Sodium Level 137, Potassium Level 3.9, Chloride Level 98, Carbon Dioxide Level 24, Anion Gap 15, Blood Urea Nitrogen 7, Creatinine 0.6, Estimat Glomerular Filtration Rate , Glucose Level 134H, Calcium Level 8.9 Current Medications Medications (Trade) Dose Ordered Sig/Lorna Route PRN Reason Start Time Stop Time Status Last Admin Dose Admin Acetaminophen (Tylenol) 650 mg Q4H PRN ORAL Mild Pain (Pain Scale 1-3) 10/05/16 15:30 11/04/16 15:29 Acetaminophen/ Hydrocodone Bitart 1 tab 1 tab Q4HR PRN ORAL for mod pain 10/05/16 15:30 10/12/16 15:29 Cefepime HCl/ Sodium Chloride (Maxipime/Sodium Chloride) 55 ml @ 110 mls/hr Q24H IVPB 10/07/16 14:00 10/14/16 13:59 10/07/16 14:09 Dextrose (Dextrose 50%) STAT PRN IV Hypoglycemia 10/05/16 15:30 11/04/16 15:29 Dextrose/ Electrolytes (D5 0.45%NS W/ KCl 20mEq) 1,000 ml @ 75 mls/hr [id number] IV 10/05/16 17:30 11/04/16 17:29 10/07/16 20:17 Docusate Sodium (Colace) 100 mg EVERY 12 HOURS ORAL 10/05/16 21:00 11/04/16 20:59 10/08/16 08:21 Heparin Sodium (Porcine) (Heparin 5000 units/ml) 5,000 units EVERY 12 HOURS SUBQ 10/05/16 21:00 11/04/16 20:59 10/08/16 08:23 Magnesium Hydroxide (Mom) 30 ml HSPRN PRN ORAL Constipation 10/05/16 15:30 11/04/16 15:29 Morphine Sulfate (Morphine Sulfate) 2 mg Q4HR PRN IVP Severe Pain (Pain Scale 7-10) 10/05/16 15:30 10/12/16 15:29 10/08/16 08:28 Nitroglycerin (Ntg) 0.4 mg Q5M PRN SL Prn Chest Pain 10/05/16 15:30 11/04/16 15:29 Ondansetron HCl (Zofran) 4 mg Q6H PRN IVP Nausea & Vomiting 10/05/16 15:30 11/04/16 15:29 Polyethylene Glycol (Miralax) 17 gm DAILYPRN PRN ORAL Constipation 10/05/16 15:30 11/04/16 15:29 Vancomycin HCl 1 ea 1 ea DAILY PRN MISC RX TO DOSE 10/06/16 21:45 11/05/16 13:59 Vancomycin HCl/ Dextrose (Vancomycin/D5W) 275 ml @ 183.708 mls/hr Q24H IVPB 10/06/16 16:00 10/11/16 15:59 10/07/16 16:03 KENAN VERDE Oct 08, 2016 11:11
[2016-10-08] MEDS ORDERED: Nitroglycerin Subl 0.4mg tab (Bottle Of 25) SL PRN (16:30)
--- NOTE | 2016-10-08 20:28 | Consultation ---
DATE OF CONSULTATION: INFECTIOUS DISEASE CONSULTATION CONSULTING PHYSICIAN: Nic Stubbs M.D. REFERRING PHYSICIAN: Ganesh Oliveros M.D. REASON FOR CONSULTATION: Evaluation of the patient for bacteremia due to coagulase-negative staph, antibiotic management and further evaluation. HISTORY OF PRESENT ILLNESS: The patient is a 76-year-old, poor historian female, who was admitted to this medical center after the patient was found in the neighbor's lawn and the patient was brought to the hospital. Apparently, she was recently admitted to [facility] for bronchitis. The patient now has positive blood culture for coagulase-negative staph. PAST MEDICAL HISTORY: Hypothyroidism. PAST SURGICAL HISTORY: None. MEDICATIONS: IV vancomycin and cefepime. ALLERGIES: No known drug allergies. SOCIAL HISTORY: No history of alcohol, drug abuse or smoking. FAMILY HISTORY: Noncontributory. REVIEW OF SYSTEMS: Limited, much of the information I was able to gather as mentioned above. PHYSICAL EXAMINATION: VITAL SIGNS: Temperature 97.7 degrees, pulse 86, respiratory rate 18, and blood pressure . HEENT: Mild pale conjunctiva. No icterus. NECK: No lymphadenopathy. CHEST: Clear. HEART: S1 and S2. ABDOMEN: Soft, nontender, and obese. EXTREMITIES: No cyanosis. NEUROLOGIC: The patient is awake. LABORATORY AND DIAGNOSTIC DATA: White blood cell 11, hemoglobin 9, and platelets 263,000. BUN 7 and creatinine 0.6. ALT, AST, and alkaline phosphatase unremarkable. Blood culture growing gram-positive cocci coagulase-negative staph in all four bottles. CT scan of the abdomen, possible right colitis. No abscess. Bilateral atelectasis. X-ray of the shoulder, acute humeral neck fracture. Chest x-ray CT of the head fracture of the right orbital floor. ASSESSMENT: The patient is a 76-year-old female with multiple medical problem, who has been admitted to this medical center due to syncopal episode. The patient has positive blood culture. In the view of the patient's recent hospitalization, there is possibility that the patient may have bacteremia due to an IV access. In view of being persistent bacteremia, it is important to rule out possibility of endocarditis. Echo done on 10/05/2016 shows technically difficult study. PLAN: 1. We will continue the patient on IV vancomycin and we will hold cefepime. 2. Monitor CBC. 3. Monitor BMP. 4. We will repeat two more sets of blood culture in the morning. 5. Suggest to get ALAN, rule out possibility of vegetation. 6. Monitor the patient's clinical course, laboratories, and cultures and based on those, we will do further recommendations. Thank you, Dr. Oliveros, for allowing me to participate in the care of this patient. I will follow the patient with you during this hospitalization. Nic Stubbs M.D. DR: IDALIA JOB#: [id number] CC:
--- NOTE | 2016-10-08 23:51 | Cardiology Progress Note ---
Assessment/Plan Assessment/Plan 1. Presumed syncope with soft tissue injury and right orbital fracture as well as right humeral fracture. Hypovolemia is most likely the etiology of the syncope, 2D echo reveals normal LV function with normal intracardiac filling pressure. Keep hydrated, electrolyte correction. 2. Gram positive cocci bacteremia, ALAN is recommended by ID specialist, however , there is nobody to provide consent for ALAN. 3. Hypothyroidism 4. Anemia Subjective Subjective Sinus tachycardia at 103. Denies chest pain or SOB. Blood culture shows G+ cocci Objective Last 24 Hour Vital Signs Date Time Temp Pulse Resp B/P Pulse Ox O2 Delivery O2 Flow Rate FiO2 10/08/16 21:00 83 87 10/08/16 20:00 98.1 92 18 129/79 97 Room Air 10/08/16 17:15 98.1 85 20 125/78 94 Room Air 10/08/16 12:05 93 10/08/16 11:35 97.9 92 18 126/72 97 Room Air 10/08/16 09:05 104 10/08/16 09:00 104 10/08/16 07:35 90 10/08/16 07:30 97.7 71 18 141/90 97 Room Air 10/08/16 04:40 98.2 84 20 138/75 97 Room Air 10/08/16 04:00 94 10/08/16 00:12 98.4 81 20 136/76 97 Room Air 10/08/16 00:00 85 Intake and Output 10/07/16 10/08/16 19:00 07:00 Intake Total 1337.416 ml 1500 ml Output Total 300 ml Balance 1337.416 ml 1200 ml Intake Oral 240 ml IV Total 1097.416 ml 900 ml Other 600 ml Output Urine Total 300 ml # Voids 2 2D Echo: LVEF 60-65%, Grade I LVDD Laboratory Tests Test 10/08/16 07:50 White Blood Count 11.0 K/UL (4.8-10.8) H Red Blood Count 3.67 M/UL (4.20-5.40) L Hemoglobin 9.0 G/DL (12.0-16.0) L Hematocrit 28.9 % (37.0-47.0) L Mean Corpuscular Volume 79 FL (80-99) L Mean Corpuscular Hemoglobin 24.4 PG (27.0-31.0) L Mean Corpuscular Hemoglobin Concent 31.0 G/DL (32.0-36.0) L Red Cell Distribution Width 17.9 % (11.6-14.8) H Platelet Count 263 K/UL (150-450) Mean Platelet Volume 6.5 FL (6.5-10.1) Neutrophils (%) (Auto) 74.1 % (45.0-75.0) Lymphocytes (%) (Auto) 19.1 % (20.0-45.0) L Monocytes (%) (Auto) 5.9 % (1.0-10.0) Eosinophils (%) (Auto) 0.3 % (0.0-3.0) Basophils (%) (Auto) 0.5 % (0.0-2.0) Sodium Level 137 mEQ/L (135-145) Potassium Level 3.9 mEQ/L (3.4-4.9) Chloride Level 98 mEQ/L (98-107) Carbon Dioxide Level 24 mEQ/L (20-30) Anion Gap 15 (5-15) Blood Urea Nitrogen 7 mg/dL (7-23) Creatinine 0.6 mg/dL (0.5-0.9) Estimat Glomerular Filtration Rate mL/min (>60) Glucose Level 134 mg/dL (74-106) H Calcium Level 8.9 mg/dL (8.6-10.2) Objective HEENT: Pupils are equal and reactive to light. Extraocular movements are intact, Ecchymosis around the maxillary and periorbital areas NECK: No JVD, no carotid bruit with upstroke 2+ B/L LUNGS: clear with no rales HEART: Normal S1 and S2. Regular, rate and rhythm. No gallops, murmurs or rubs. ABDOMEN: Soft, nontender, and nondistended. No rebound tenderness. EXTREMITIES: No cyanosis, clubbing, or edema. Right shoulder tenderness on palpation and limited range of motion. CLEO RILEY Oct 08, 2016 23:51
[2016-10-09] VITALS (7 sets, daily range): BP systolic 115–140; BP diastolic 58–86
--- NOTE | 2016-10-09 00:14 | Cardiology Report ---
APPROVED REPORT EKG Measurement Heart [id number] Sinus rhythm with 1st degree AV block Otherwise normal ECG
[2016-10-09] MEDS: Morphine Sulfate 2mg/ml Inj IVP PRN ×3 (02:47→17:26)
[2016-10-09 07:06] LABS: BASOPHILS % (AUTO) 0.7 % (0.0-2.0); EOSINOPHILS % (AUTO) 0.7 % (0.0-3.0); LYMPHOCYTES % (AUTO) 25.5 % (20.0-45.0); MEAN CORPUSCULAR HEMOGLOBIN 24.3 PG (27.0-31.0); MEAN CORPUSCULAR HGB CONC 30.6 G/DL (32.0-36.0); MEAN CORPUSCULAR VOLUME 79 FL (80-99); MEAN PLATELET VOLUME 6.3 FL (6.5-10.1); MONOCYTES % (AUTO) 5.9 % (1.0-10.0); NEUTROPHILS % (AUTO) 67.1 % (45.0-75.0); PLATELET COUNT 275 K/UL (150-450); RED BLOOD COUNT 3.57 M/UL (4.20-5.40); RED CELL DISTRIBUTION WIDTH 18.1 % (11.6-14.8); WHITE BLOOD COUNT 9.2 K/UL (4.8-10.8)
[2016-10-09 07:16] LABS: ANION GAP 15 (5-15); CARBON DIOXIDE 25 mEQ/L (20-30); CHLORIDE 101 mEQ/L (98-107); CREATININE 0.5 mg/dL (0.5-0.9); HEMOLYSIS 1; POTASSIUM 3.6 mEQ/L (3.4-4.9); SODIUM 141 mEQ/L (135-145)
[2016-10-09] MEDS: Docusate 100mg tablet ORAL SCH ×2 (08:06→20:17)
[2016-10-09] MEDS: Heparin 5000 units/ml inj SUBQ SCH ×2 (08:08→20:26)
--- NOTE | 2016-10-09 10:28 | Infectious Diseases Prog Note ---
Assessment/Plan Assessment/Plan A: The patient is a 76-year-old female with Sepsis Bacteremia CoNS 10/09 TTE : on 10/05/2016 difficult study Hx of recent hospitalization ( probable due to IV access ) Hypothyroidism CT Abd : possible colitis ( not indication clinically ) Rt shoulder fracture Right orbital floor fracture Sp syncopal episode. PLAN: Cont patient on IV vancomycin d# 3 ( 10/08 SP cefepime ) Monitor CBC. Monitor BMP. Monitor blood culture (repeat ) Red ALAN, rule out possibility of vegetation ( ? consent ) Subjective Constitutional: Denies: anorexia, chills, drenching sweats, fatigue, fever, no symptoms, other Allergies: Coded Allergies: No Known Allergies (Unverified , 10/05/16) Objective Vital Signs Last 24 Hour Vital Signs Date Time Temp Pulse Resp B/P Pulse Ox O2 Delivery O2 Flow Rate FiO2 10/09/16 09:00 65 68 10/09/16 07:56 98.4 63 18 115/58 95 Room Air 10/09/16 04:00 97.2 86 18 122/78 96 Room Air 10/09/16 00:00 98.2 86 18 128/80 96 Room Air 10/08/16 21:00 83 87 10/08/16 20:00 98.1 92 18 129/79 97 Room Air 10/08/16 17:15 98.1 85 20 125/78 94 Room Air 10/08/16 12:05 93 10/08/16 11:35 97.9 92 18 126/72 97 Room Air Height (Feet): 5 Height (Inches): 3.00 Weight (Pounds): 150 HEENT: atraumatic Respiratory/Chest: no respiratory distress Cardiovascular: regularly irregular Abdomen: non distended Laboratory Tests Test 10/09/16 04:30 White Blood Count 9.2 K/UL (4.8-10.8) Red Blood Count 3.57 M/UL (4.20-5.40) L Hemoglobin 8.7 G/DL (12.0-16.0) L Hematocrit 28.4 % (37.0-47.0) L Mean Corpuscular Volume 79 FL (80-99) L Mean Corpuscular Hemoglobin 24.3 PG (27.0-31.0) L Mean Corpuscular Hemoglobin Concent 30.6 G/DL (32.0-36.0) L Red Cell Distribution Width 18.1 % (11.6-14.8) H Platelet Count 275 K/UL (150-450) Mean Platelet Volume 6.3 FL (6.5-10.1) L Neutrophils (%) (Auto) 67.1 % (45.0-75.0) Lymphocytes (%) (Auto) 25.5 % (20.0-45.0) Monocytes (%) (Auto) 5.9 % (1.0-10.0) Eosinophils (%) (Auto) 0.7 % (0.0-3.0) Basophils (%) (Auto) 0.7 % (0.0-2.0) Sodium Level 141 mEQ/L (135-145) Potassium Level 3.6 mEQ/L (3.4-4.9) Chloride Level 101 mEQ/L (98-107) Carbon Dioxide Level 25 mEQ/L (20-30) Anion Gap 15 (5-15) Blood Urea Nitrogen 11 mg/dL (7-23) Creatinine 0.5 mg/dL (0.5-0.9) Estimat Glomerular Filtration Rate mL/min (>60) Glucose Level 101 mg/dL (74-106) Calcium Level 9.0 mg/dL (8.6-10.2) Current Medications Medications (Trade) Dose Ordered Sig/Lorna Route PRN Reason Start Time Stop Time Status Last Admin Dose Admin Acetaminophen (Tylenol) 650 mg Q4H PRN ORAL Mild Pain (Pain Scale 1-3) 10/08/16 17:00 11/07/16 16:59 Acetaminophen/ Hydrocodone Bitart ([place] 5/325) 1 tab Q4H PRN ORAL MODERATE PAIN 10/08/16 17:00 10/15/16 16:59 Dextrose (Dextrose 50%) STAT PRN IV Hypoglycemia 10/08/16 16:30 11/07/16 16:29 Docusate Sodium (Colace) 100 mg EVERY 12 HOURS ORAL 10/08/16 21:00 11/07/16 20:59 10/09/16 08:06 Heparin Sodium (Porcine) (Heparin 5000 units/ml) 5,000 units EVERY 12 HOURS SUBQ 10/08/16 21:00 11/07/16 20:59 10/09/16 08:08 Magnesium Hydroxide (Mom) 30 ml HSPRN PRN ORAL Constipation 10/09/16 15:30 11/08/16 15:29 Morphine Sulfate (Morphine Sulfate) 2 mg Q4H PRN IVP Severe Pain (Pain Scale 7-10) 10/08/16 17:00 10/15/16 16:59 10/09/16 02:47 Nitroglycerin (Ntg) 0.4 mg Q5MIN X 3 DOSES PRN SL Prn Chest Pain 10/08/16 16:30 11/07/16 16:29 Ondansetron HCl (Zofran) 4 mg Q6H PRN IVP Nausea & Vomiting 10/08/16 21:30 11/07/16 21:29 Polyethylene Glycol (Miralax) 17 gm DAILYPRN PRN ORAL Constipation 10/09/16 15:30 11/08/16 15:29 Vancomycin HCl (Vanco rx to dose) 1 ea DAILY PRN MISC RX TO DOSE 10/08/16 16:30 11/07/16 16:29 Vancomycin HCl/ Dextrose (Vancomycin/D5W) 275 ml @ 183.708 mls/hr Q24H IVPB 10/09/16 16:00 10/14/16 15:59 JOSE MANUEL VAZQUEZ M.D. Oct 09, 2016 10:28
--- NOTE | 2016-10-09 11:21 | Cardiology Report ---
APPROVED REPORT EXAM: Two-dimensional and M-mode echocardiogram with Doppler and color Doppler. INDICATION Altered LOC Technically difficult study due to poor acoustic windows. M-mode measurements not obtainable due to cardiac structure. Normal left ventricular chamber size, systolic function and wall motion. Left ventricular ejection fraction estimated to be 60-65%. No evidence of left ventricular hypertrophy. No evidence of pericardial fat or effusion. All other cardiac chamber sizes are within normal limits. Focal aortic valve sclerosis with adequate cusp excursion Thickened mitral valve leaflets with normal excursion. Mitral annulus and aortic root calcification. Pulmonic valve not well visualized. Normal tricuspid valve structure. IVC not obtainable. A color flow and spectral Doppler study was performed and revealed: No aortic regurgitation. Trace mitral regurgitation. Left ventricular diastolic dysfunction grade 1. No tricuspid regurgitation.
[2016-10-09] MEDS ORDERED: Milk of Magnesia 30ml Ud ORAL PRN (15:30)
[2016-10-09] MEDS ORDERED: Miralax 17gm pkt ORAL PRN (15:30)
[2016-10-09] MEDS ORDERED: Vancomycin 1 GM in D5W 275 ML IVPB SCH (16:00)
[2016-10-09] MEDS ORDERED: Vancomycin 1250mg in D5W 275ml IVPB ONE (16:30)
--- NOTE | 2016-10-09 18:18 | Internal Med Progress Note ---
Subjective Date of Service: Oct 09, 2016 Physician Name Cayetano Matias Attending Physician Josafat Berry MD Current Medications Medications (Trade) Dose Ordered Sig/Lorna Route PRN Reason Start Time Stop Time Status Last Admin Dose Admin Acetaminophen (Tylenol) 650 mg Q4H PRN ORAL Mild Pain (Pain Scale 1-3) 10/08/16 17:00 11/07/16 16:59 Acetaminophen/ Hydrocodone Bitart ([place] 5/325) 1 tab Q4H PRN ORAL MODERATE PAIN 10/08/16 17:00 10/15/16 16:59 Dextrose (Dextrose 50%) STAT PRN IV Hypoglycemia 10/08/16 16:30 11/07/16 16:29 Docusate Sodium (Colace) 100 mg EVERY 12 HOURS ORAL 10/08/16 21:00 11/07/16 20:59 10/09/16 08:06 Heparin Sodium (Porcine) (Heparin 5000 units/ml) 5,000 units EVERY 12 HOURS SUBQ 10/08/16 21:00 11/07/16 20:59 10/09/16 08:08 Magnesium Hydroxide (Mom) 30 ml HSPRN PRN ORAL Constipation 10/09/16 15:30 11/08/16 15:29 Morphine Sulfate (Morphine Sulfate) 2 mg Q4H PRN IVP Severe Pain (Pain Scale 7-10) 10/08/16 17:00 10/15/16 16:59 10/09/16 17:26 Nitroglycerin (Ntg) 0.4 mg Q5MIN X 3 DOSES PRN SL Prn Chest Pain 10/08/16 16:30 11/07/16 16:29 Ondansetron HCl (Zofran) 4 mg Q6H PRN IVP Nausea & Vomiting 10/08/16 21:30 11/07/16 21:29 Polyethylene Glycol (Miralax) 17 gm DAILYPRN PRN ORAL Constipation 10/09/16 15:30 11/08/16 15:29 Vancomycin HCl 1 ea 1 ea DAILY PRN MISC RX TO DOSE 10/08/16 16:30 11/07/16 16:29 Vancomycin HCl/ Dextrose (Vancomycin/D5W) 275 ml @ 183.708 mls/hr Q24H IVPB 10/10/16 02:00 10/15/16 01:59 Allergies: Coded Allergies: No Known Allergies (Unverified , 10/05/16) ROS Limited/Unobtainable: No Constitutional: Reports: no symptoms HEENT: Reports: no symptoms Cardiovascular: Reports: no symptoms Respiratory: Reports: no symptoms Gastrointestinal/Abdominal: Reports: no symptoms Genitourinary: Reports: no symptoms Neurologic/Psychiatric: Reports: no symptoms Subjective 76 YO F admitted with syncope. Now right humeral neck fracture and right orbital floor fracture. Cover for Int Shay-Dr Berry. Objective Last Vital Signs Date Time Temp Pulse Resp B/P Pulse Ox O2 Delivery O2 Flow Rate FiO2 10/09/16 16:00 98.6 69 18 115/69 98 Room Air Laboratory Tests Test 10/09/16 04:30 10/09/16 15:55 White Blood Count 9.2 K/UL (4.8-10.8) Red Blood Count 3.57 M/UL (4.20-5.40) L Hemoglobin 8.7 G/DL (12.0-16.0) L Hematocrit 28.4 % (37.0-47.0) L Mean Corpuscular Volume 79 FL (80-99) L Mean Corpuscular Hemoglobin 24.3 PG (27.0-31.0) L Mean Corpuscular Hemoglobin Concent 30.6 G/DL (32.0-36.0) L Red Cell Distribution Width 18.1 % (11.6-14.8) H Platelet Count 275 K/UL (150-450) Mean Platelet Volume 6.3 FL (6.5-10.1) L Neutrophils (%) (Auto) 67.1 % (45.0-75.0) Lymphocytes (%) (Auto) 25.5 % (20.0-45.0) Monocytes (%) (Auto) 5.9 % (1.0-10.0) Eosinophils (%) (Auto) 0.7 % (0.0-3.0) Basophils (%) (Auto) 0.7 % (0.0-2.0) Sodium Level 141 mEQ/L (135-145) Potassium Level 3.6 mEQ/L (3.4-4.9) Chloride Level 101 mEQ/L (98-107) Carbon Dioxide Level 25 mEQ/L (20-30) Anion Gap 15 (5-15) Blood Urea Nitrogen 11 mg/dL (7-23) Creatinine 0.5 mg/dL (0.5-0.9) Estimat Glomerular Filtration Rate mL/min (>60) Glucose Level 101 mg/dL (74-106) Calcium Level 9.0 mg/dL (8.6-10.2) Vancomycin Level Trough < 2.0 ug/mL (5.0-12.0) L Intake and Output 10/08/16 10/09/16 19:00 07:00 Intake Total 740 ml 210 ml Output Total 600 ml Balance 140 ml 210 ml Intake Oral 515 ml 210 ml IV Total 225 ml Output Urine Total 600 ml # Voids 1 3 Objective General Appearance: WD/WN, no apparent distress, alert EENT: PERRL/EOMI, normal ENT inspection, other - contusion right eye Neck: non-tender, normal alignment, supple Cardiovascular: normal peripheral pulses, normal rate, regular rhythm Respiratory/Chest: chest wall non-tender, lungs clear, normal breath sounds Abdomen: normal bowel sounds, non tender, soft, no organomegaly, no mass Extremities: normal range of motion 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 See neurology consult. (2) Hypothyroidism Assessment & Plan: Cont synthroid. (3) Humeral surgical neck fracture Assessment & Plan: Non-surgical. See ortho note. (4) Orbital floor (blow-out) closed fracture Assessment & Plan: Await plastic surgery consult. (5) Syncope Assessment & Plan: See cardiology and neurology consults. Await Serial MRI brain. R/O acute DE vs CVA (6) Sepsis Assessment & Plan: Coag neg staph. Await ID consult-Dr Stubbs. Continue vanco and cefepime. Status: not improved CAYETANO MATIAS Oct 09, 2016 18:18
--- NOTE | 2016-10-09 23:55 | Cardiology Progress Note ---
Assessment/Plan Assessment/Plan 1. Presumed syncope with soft tissue injury and right orbital fracture as well as right humeral fracture. Hypovolemia is most likely the etiology of the syncope, 2D echo reveals normal LV function with normal intracardiac filling pressure. Keep hydrated, electrolyte correction. 2. Gram positive cocci bacteremia. 3. Hypothyroidism 4. Anemia Subjective Subjective Transferred to med-surg unit. Denies chest pain or SOB. Blood culture shows G+ cocci Objective Last 24 Hour Vital Signs Date Time Temp Pulse Resp B/P Pulse Ox O2 Delivery O2 Flow Rate FiO2 10/09/16 21:02 83 10/09/16 21:00 98.1 83 20 140/86 99 Room Air 10/09/16 16:00 98.6 69 18 115/69 98 Room Air 10/09/16 12:00 97.0 78 18 116/73 95 Room Air 10/09/16 09:00 65 68 10/09/16 07:56 98.4 63 18 115/58 95 Room Air 10/09/16 04:00 97.2 86 18 122/78 96 Room Air 10/09/16 00:00 98.2 86 18 128/80 96 Room Air Intake and Output 10/08/16 10/09/16 19:00 07:00 Intake Total 740 ml 210 ml Output Total 600 ml Balance 140 ml 210 ml Intake Oral 515 ml 210 ml IV Total 225 ml Output Urine Total 600 ml # Voids 1 3 2D Echo: LVEF 60-65%, Grade I LVDD Laboratory Tests Test 10/09/16 04:30 10/09/16 15:55 White Blood Count 9.2 K/UL (4.8-10.8) Red Blood Count 3.57 M/UL (4.20-5.40) L Hemoglobin 8.7 G/DL (12.0-16.0) L Hematocrit 28.4 % (37.0-47.0) L Mean Corpuscular Volume 79 FL (80-99) L Mean Corpuscular Hemoglobin 24.3 PG (27.0-31.0) L Mean Corpuscular Hemoglobin Concent 30.6 G/DL (32.0-36.0) L Red Cell Distribution Width 18.1 % (11.6-14.8) H Platelet Count 275 K/UL (150-450) Mean Platelet Volume 6.3 FL (6.5-10.1) L Neutrophils (%) (Auto) 67.1 % (45.0-75.0) Lymphocytes (%) (Auto) 25.5 % (20.0-45.0) Monocytes (%) (Auto) 5.9 % (1.0-10.0) Eosinophils (%) (Auto) 0.7 % (0.0-3.0) Basophils (%) (Auto) 0.7 % (0.0-2.0) Sodium Level 141 mEQ/L (135-145) Potassium Level 3.6 mEQ/L (3.4-4.9) Chloride Level 101 mEQ/L (98-107) Carbon Dioxide Level 25 mEQ/L (20-30) Anion Gap 15 (5-15) Blood Urea Nitrogen 11 mg/dL (7-23) Creatinine 0.5 mg/dL (0.5-0.9) Estimat Glomerular Filtration Rate mL/min (>60) Glucose Level 101 mg/dL (74-106) Calcium Level 9.0 mg/dL (8.6-10.2) Vancomycin Level Trough < 2.0 ug/mL (5.0-12.0) L Objective HEENT: Pupils are equal and reactive to light. Extraocular movements are intact, Ecchymosis around the maxillary and periorbital areas NECK: No JVD, no carotid bruit with upstroke 2+ B/L LUNGS: clear with no rales HEART: Normal S1 and S2. Regular, rate and rhythm. No gallops, murmurs or rubs. ABDOMEN: Soft, nontender, and nondistended. No rebound tenderness. EXTREMITIES: No cyanosis, clubbing, or edema. Right shoulder tenderness on palpation and limited range of motion. CLEO RILEY Oct 09, 2016 23:55
[2016-10-10] MEDS ORDERED: Vancomycin 1gm inj IVPB ONE (00:52)
[2016-10-10] MEDS: Vancomycin 1gm in D5W 275ml IVPB SCH (01:56)
[2016-10-10] MEDS: Norco 5mg/325mg tab ORAL PRN ×2 (02:26→20:58)
[2016-10-10 04:00] VITALS: BP 124/77
[2016-10-10] MEDS: Morphine Sulfate 2mg/ml Inj IVP PRN ×3 (05:08→17:31)
[2016-10-10 07:00] LABS: ANION GAP 15 (5-15); CALCIUM 9.2 mg/dL (8.6-10.2); CARBON DIOXIDE 26 mEQ/L (20-30); CHLORIDE 99 mEQ/L (98-107); CREATININE 0.6 mg/dL (0.5-0.9); HEMOLYSIS 1; POTASSIUM 3.6 mEQ/L (3.4-4.9); SODIUM 140 mEQ/L (135-145)
[2016-10-10 07:12] LABS: BASOPHILS % (AUTO) 0.7 % (0.0-2.0); EOSINOPHILS % (AUTO) 0.7 % (0.0-3.0); LYMPHOCYTES % (AUTO) 23.4 % (20.0-45.0); MEAN CORPUSCULAR HEMOGLOBIN 24.1 PG (27.0-31.0); MEAN CORPUSCULAR HGB CONC 30.5 G/DL (32.0-36.0); MEAN CORPUSCULAR VOLUME 79 FL (80-99); MEAN PLATELET VOLUME 6.1 FL (6.5-10.1); MONOCYTES % (AUTO) 6.1 % (1.0-10.0); PLATELET COUNT 313 K/UL (150-450); RED BLOOD COUNT 3.56 M/UL (4.20-5.40); RED CELL DISTRIBUTION WIDTH 17.6 % (11.6-14.8); WHITE BLOOD COUNT 8.6 K/UL (4.8-10.8)
[2016-10-10 08:00] VITALS: BP 110/73
--- NOTE | 2016-10-10 08:28 | Diagnostic Imaging Report ---
Indication: SYNCOPE Technique: sagittal T1 fast spin echo, axial T1 FLAIR PROPELLER, axial T2 FLAIR PROPELLER, axial T2 FS PROPELLER, axial diffusion weighted images. ADC and exponential ADC maps generated Comparison: Head CT 10/05/2016 Findings:Exam is nondiagnostic, due to susceptibility artifact from a hairpiece which per technologist patient describes as unremovable. Is also significant motion artifact Diffusion images are completely nondiagnostic. The some portions of the brain are visible on the T2-weighted images, indicating enlargement of ventricles and extra-axial CSF spaces. The axial T1 and T2 FLAIR images are completely nondiagnostic.. No mass effect nor midline shift. . Visualized orbits and sinuses are grossly unremarkable except for evidence of prior bilateral cataract surgery and possible right maxillary sinus mucosal disease. Impression: Nondiagnostic exam as described
[2016-10-10] MEDS: Heparin 5000 units/ml inj SUBQ SCH ×2 (08:31→21:00)
[2016-10-10] MEDS: Docusate 100mg tablet ORAL SCH ×2 (08:31→20:56)
--- NOTE | 2016-10-10 10:27 | Diagnostic Imaging Report ---
APPROVED REPORT CPT Code: 43119 Vascular Symptoms Syncope BILATERAL: CCA/BULB - Imaging reveals irregular, minimal plaque in both carotid bulbs. arteries. The Doppler spectral flow analysis is within normal limits throughout the internal and external carotid arteries. VERTEBRALS - Imaging reveals both vertebral arteries to be patent, without evidence of stenosis or steal.
[2016-10-10 12:19] VITALS: BP 94/60
--- NOTE | 2016-10-10 12:26 | Internal Med Progress Note ---
Subjective Date of Service: Oct 10, 2016 Physician Name Cayetano Matias Attending Physician Josafat Berry MD Current Medications Medications (Trade) Dose Ordered Sig/Lorna Route PRN Reason Start Time Stop Time Status Last Admin Dose Admin Acetaminophen (Tylenol) 650 mg Q4H PRN ORAL Mild Pain (Pain Scale 1-3) 10/08/16 17:00 11/07/16 16:59 10/09/16 20:22 Acetaminophen/ Hydrocodone Bitart ([place] 5/325) 1 tab Q4H PRN ORAL MODERATE PAIN 10/08/16 17:00 10/15/16 16:59 10/10/16 02:26 Dextrose (Dextrose 50%) STAT PRN IV Hypoglycemia 10/08/16 16:30 11/07/16 16:29 Docusate Sodium (Colace) 100 mg EVERY 12 HOURS ORAL 10/08/16 21:00 11/07/16 20:59 10/10/16 08:31 Heparin Sodium (Porcine) (Heparin 5000 units/ml) 5,000 units EVERY 12 HOURS SUBQ 10/08/16 21:00 11/07/16 20:59 10/10/16 08:31 Magnesium Hydroxide (Mom) 30 ml HSPRN PRN ORAL Constipation 10/09/16 15:30 11/08/16 15:29 Morphine Sulfate (Morphine Sulfate) 2 mg Q4H PRN IVP Severe Pain (Pain Scale 7-10) 10/08/16 17:00 10/15/16 16:59 10/10/16 11:56 Nitroglycerin (Ntg) 0.4 mg Q5MIN X 3 DOSES PRN SL Prn Chest Pain 10/08/16 16:30 11/07/16 16:29 Ondansetron HCl (Zofran) 4 mg Q6H PRN IVP Nausea & Vomiting 10/08/16 21:30 11/07/16 21:29 Polyethylene Glycol (Miralax) 17 gm DAILYPRN PRN ORAL Constipation 10/09/16 15:30 11/08/16 15:29 Vancomycin HCl 1 ea 1 ea DAILY PRN MISC RX TO DOSE 10/08/16 16:30 11/07/16 16:29 Vancomycin HCl/ Dextrose (Vancomycin/D5W) 275 ml @ 183.708 mls/hr Q24H IVPB 10/10/16 02:00 10/15/16 01:59 10/10/16 01:56 Allergies: Coded Allergies: No Known Allergies (Unverified , 10/05/16) ROS Limited/Unobtainable: No Constitutional: Reports: no symptoms HEENT: Reports: no symptoms Cardiovascular: Reports: no symptoms Respiratory: Reports: no symptoms Gastrointestinal/Abdominal: Reports: no symptoms Genitourinary: Reports: no symptoms Neurologic/Psychiatric: Reports: no symptoms Subjective 76 YO F admitted with syncope. Now right humeral neck fracture and right orbital floor fracture. More alert today; eating with assistance. Cover for Int Shay-Dr Berry. Objective Last Vital Signs Date Time Temp Pulse Resp B/P Pulse Ox O2 Delivery O2 Flow Rate FiO2 10/10/16 12:19 97.9 84 20 94/60 95 Room Air Laboratory Tests Test 10/09/16 15:55 10/10/16 05:45 Vancomycin Level Trough < 2.0 ug/mL (5.0-12.0) L White Blood Count 8.6 K/UL (4.8-10.8) Red Blood Count 3.56 M/UL (4.20-5.40) L Hemoglobin 8.6 G/DL (12.0-16.0) L Hematocrit 28.2 % (37.0-47.0) L Mean Corpuscular Volume 79 FL (80-99) L Mean Corpuscular Hemoglobin 24.1 PG (27.0-31.0) L Mean Corpuscular Hemoglobin Concent 30.5 G/DL (32.0-36.0) L Red Cell Distribution Width 17.6 % (11.6-14.8) H Platelet Count 313 K/UL (150-450) Mean Platelet Volume 6.1 FL (6.5-10.1) L Neutrophils (%) (Auto) 69.0 % (45.0-75.0) Lymphocytes (%) (Auto) 23.4 % (20.0-45.0) Monocytes (%) (Auto) 6.1 % (1.0-10.0) Eosinophils (%) (Auto) 0.7 % (0.0-3.0) Basophils (%) (Auto) 0.7 % (0.0-2.0) Sodium Level 140 mEQ/L (135-145) Potassium Level 3.6 mEQ/L (3.4-4.9) Chloride Level 99 mEQ/L (98-107) Carbon Dioxide Level 26 mEQ/L (20-30) Anion Gap 15 (5-15) Blood Urea Nitrogen 14 mg/dL (7-23) Creatinine 0.6 mg/dL (0.5-0.9) Estimat Glomerular Filtration Rate mL/min (>60) Glucose Level 101 mg/dL (74-106) Calcium Level 9.2 mg/dL (8.6-10.2) Intake and Output 10/09/16 10/10/16 19:00 07:00 Intake Total 515.000 ml 480 ml Balance 515.000 ml 480 ml Intake Oral 240 ml 480 ml IV Total 275.000 ml # Voids 2 5 Objective General Appearance: WD/WN, no apparent distress, alert EENT: PERRL/EOMI, normal ENT inspection, other - contusion right eye Neck: non-tender, normal alignment, supple Cardiovascular: normal peripheral pulses, normal rate, regular rhythm Respiratory/Chest: chest wall non-tender, lungs clear, normal breath sounds Abdomen: normal bowel sounds, non tender, soft, no organomegaly, no mass Extremities: normal range of motion 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 See neurology consult. (2) Hypothyroidism Assessment & Plan: Cont synthroid. (3) Humeral surgical neck fracture Assessment & Plan: Non-surgical. See ortho note. (4) Orbital floor (blow-out) closed fracture Assessment & Plan: Await plastic surgery consult. (5) Syncope Assessment & Plan: See cardiology and neurology consults. MRI brain= Nondiagnostic. R/O acute HI vs CVA (6) Sepsis Assessment & Plan: Coag neg staph. See ID consult-Dr Stubbs. Continue vanco and cefepime. Await transesophageal echocardiogram. Assessment/Plan Discharge planning: SNF vs home health CAYETANO MATIAS Oct 10, 2016 12:26
[2016-10-10] MEDS ORDERED: D5W 275ml ONE (13:38)
[2016-10-10 16:00] VITALS: BP 131/65
--- NOTE | 2016-10-10 19:24 | Infectious Diseases Prog Note ---
Assessment/Plan Assessment/Plan A: The patient is a 76-year-old female with Sepsis improving Bacteremia CoNS 10/09 TTE : on 10/05/2016 difficult study Hx of recent hospitalization ( probable due to IV access ) Hypothyroidism CT Abd : possible colitis ( not indication clinically ) Rt shoulder fracture Right orbital floor fracture Sp syncopal episode. PLAN: Cont patient on IV vancomycin d# 4 ( 10/08 SP cefepime ) Monitor CBC. Monitor BMP. Monitor blood culture (repeat ) Red ALAN, rule out possibility of vegetation ( ? consent ) Subjective Constitutional: Denies: anorexia, chills, drenching sweats, fatigue, fever, no symptoms, other Allergies: Coded Allergies: No Known Allergies (Unverified , 10/05/16) Objective Vital Signs Last 24 Hour Vital Signs Date Time Temp Pulse Resp B/P Pulse Ox O2 Delivery O2 Flow Rate FiO2 10/10/16 16:00 97.5 71 20 131/65 98 Room Air 10/10/16 12:19 97.9 84 20 94/60 95 Room Air 10/10/16 09:00 84 87 10/10/16 08:00 97.9 18 110/73 97 Room Air 10/10/16 05:38 98.0 10/10/16 04:00 98.0 72 18 124/77 95 Room Air 10/10/16 03:25 97.9 10/09/16 23:58 97.9 79 18 133/81 95 Room Air 10/09/16 21:02 83 10/09/16 21:00 98.1 83 20 140/86 99 Room Air Height (Feet): 5 Height (Inches): 3.00 Weight (Pounds): 150 HEENT: mucous membranes moist Respiratory/Chest: no respiratory distress Cardiovascular: regular rhythm Abdomen: no organomegaly Laboratory Tests Test 10/10/16 05:45 White Blood Count 8.6 K/UL (4.8-10.8) Red Blood Count 3.56 M/UL (4.20-5.40) L Hemoglobin 8.6 G/DL (12.0-16.0) L Hematocrit 28.2 % (37.0-47.0) L Mean Corpuscular Volume 79 FL (80-99) L Mean Corpuscular Hemoglobin 24.1 PG (27.0-31.0) L Mean Corpuscular Hemoglobin Concent 30.5 G/DL (32.0-36.0) L Red Cell Distribution Width 17.6 % (11.6-14.8) H Platelet Count 313 K/UL (150-450) Mean Platelet Volume 6.1 FL (6.5-10.1) L Neutrophils (%) (Auto) 69.0 % (45.0-75.0) Lymphocytes (%) (Auto) 23.4 % (20.0-45.0) Monocytes (%) (Auto) 6.1 % (1.0-10.0) Eosinophils (%) (Auto) 0.7 % (0.0-3.0) Basophils (%) (Auto) 0.7 % (0.0-2.0) Sodium Level 140 mEQ/L (135-145) Potassium Level 3.6 mEQ/L (3.4-4.9) Chloride Level 99 mEQ/L (98-107) Carbon Dioxide Level 26 mEQ/L (20-30) Anion Gap 15 (5-15) Blood Urea Nitrogen 14 mg/dL (7-23) Creatinine 0.6 mg/dL (0.5-0.9) Estimat Glomerular Filtration Rate mL/min (>60) Glucose Level 101 mg/dL (74-106) Calcium Level 9.2 mg/dL (8.6-10.2) Current Medications Medications (Trade) Dose Ordered Sig/Lorna Route PRN Reason Start Time Stop Time Status Last Admin Dose Admin Acetaminophen (Tylenol) 650 mg Q4H PRN ORAL Mild Pain (Pain Scale 1-3) 10/08/16 17:00 11/07/16 16:59 10/09/16 20:22 Acetaminophen/ Hydrocodone Bitart ([place] 5/325) 1 tab Q4H PRN ORAL MODERATE PAIN 10/08/16 17:00 10/15/16 16:59 10/10/16 02:26 Dextrose (Dextrose 50%) STAT PRN IV Hypoglycemia 10/08/16 16:30 11/07/16 16:29 Docusate Sodium (Colace) 100 mg EVERY 12 HOURS ORAL 10/08/16 21:00 11/07/16 20:59 10/10/16 08:31 Heparin Sodium (Porcine) (Heparin 5000 units/ml) 5,000 units EVERY 12 HOURS SUBQ 10/08/16 21:00 11/07/16 20:59 10/10/16 08:31 Magnesium Hydroxide (Mom) 30 ml HSPRN PRN ORAL Constipation 10/09/16 15:30 11/08/16 15:29 Morphine Sulfate (Morphine Sulfate) 2 mg Q4H PRN IVP Severe Pain (Pain Scale 7-10) 10/08/16 17:00 10/15/16 16:59 10/10/16 17:31 Nitroglycerin (Ntg) 0.4 mg Q5MIN X 3 DOSES PRN SL Prn Chest Pain 10/08/16 16:30 11/07/16 16:29 Ondansetron HCl (Zofran) 4 mg Q6H PRN IVP Nausea & Vomiting 10/08/16 21:30 11/07/16 21:29 Polyethylene Glycol (Miralax) 17 gm DAILYPRN PRN ORAL Constipation 10/09/16 15:30 11/08/16 15:29 Vancomycin HCl 1 ea 1 ea DAILY PRN MISC RX TO DOSE 10/08/16 16:30 11/07/16 16:29 Vancomycin HCl/ Dextrose (Vancomycin/D5W) 275 ml @ 183.708 mls/hr Q24H IVPB 10/10/16 02:00 10/15/16 01:59 10/10/16 01:56 JOSE MANUEL VAZQUEZ M.D. Oct 10, 2016 19:24
[2016-10-10 20:00] VITALS: BP 109/73
--- NOTE | 2016-10-10 23:21 | Pulmonology Progress Note ---
Assessment/Plan Problems: (1) Shoulder fracture, right (2) Orbital wall fracture (3) Sepsis (4) Orbital floor (blow-out) closed fracture Assessment/Plan pt/ot dc iv fluid blanco culture adjust iv antibiotics 2d Echo, results pending Subjective ROS Limited/Unobtainable: Yes Constitutional: Reports: anorexia, fatigue HEENT: Repors: congestion, coryza, discharge, earache, hearing change, post- nasal drip, visual change Neurologic: Reports: confusion, weakness Hematologic: Reports: bleeding, bruising, swollen lymph nodes Musculoskeletal: Reports: pain, stiffness, swelling Allergies: Coded Allergies: No Known Allergies (Unverified , 10/05/16) Objective Last 24 Hour Vital Signs Date Time Temp Pulse Resp B/P Pulse Ox O2 Delivery O2 Flow Rate FiO2 10/10/16 20:00 99.7 94 22 109/73 92 Room Air 10/10/16 16:00 97.5 71 20 131/65 98 Room Air 10/10/16 12:19 97.9 84 20 94/60 95 Room Air 10/10/16 09:00 84 87 10/10/16 08:00 97.9 18 110/73 97 Room Air 10/10/16 05:38 98.0 10/10/16 04:00 98.0 72 18 124/77 95 Room Air 10/10/16 03:25 97.9 10/09/16 23:58 97.9 79 18 133/81 95 Room Air Intake and Output 10/09/16 10/10/16 19:00 07:00 Intake Total 515.000 ml 480 ml Balance 515.000 ml 480 ml Intake Oral 240 ml 480 ml IV Total 275.000 ml # Voids 2 5 HEENT: PERRL, other - trauamatic eccymosis periorbital swelling Respiratory/Chest: chest wall non-tender, decreased breath sounds, accessory muscle use Breasts: no masses Cardiovascular: normal peripheral pulses, normal rate, regular rhythm, no JVD Abdomen: normal bowel sounds, soft, non tender, no organomegaly, non distended Genitourinary: normal external genitalia Extremities: no cyanosis Neurologic/Psychiatric: responsive, motor weakness, disoriented Laboratory Tests 10/10/16 05:45: White Blood Count 8.6, Red Blood Count 3.56L, Hemoglobin 8.6L, Hematocrit 28.2L , Mean Corpuscular Volume 79L, Mean Corpuscular Hemoglobin 24.1L, Mean Corpuscular Hemoglobin Concent 30.5L, Red Cell Distribution Width 17.6H, Platelet Count 313, Mean Platelet Volume 6.1L, Neutrophils (%) (Auto) 69.0, Lymphocytes (%) (Auto) 23.4, Monocytes (%) (Auto) 6.1, Eosinophils (%) (Auto) 0.7, Basophils (%) (Auto) 0.7, Sodium Level 140, Potassium Level 3.6, Chloride Level 99, Carbon Dioxide Level 26, Anion Gap 15, Blood Urea Nitrogen 14, Creatinine 0.6, Estimat Glomerular Filtration Rate , Glucose Level 101, Calcium Level 9.2 Current Medications Medications (Trade) Dose Ordered Sig/Lorna Route PRN Reason Start Time Stop Time Status Last Admin Dose Admin Acetaminophen (Tylenol) 650 mg Q4H PRN ORAL Mild Pain (Pain Scale 1-3) 10/08/16 17:00 11/07/16 16:59 10/09/16 20:22 Acetaminophen/ Hydrocodone Bitart ([place] 5/325) 1 tab Q4H PRN ORAL MODERATE PAIN 10/08/16 17:00 10/15/16 16:59 10/10/16 20:58 Dextrose (Dextrose 50%) STAT PRN IV Hypoglycemia 10/08/16 16:30 11/07/16 16:29 Docusate Sodium (Colace) 100 mg EVERY 12 HOURS ORAL 10/08/16 21:00 11/07/16 20:59 10/10/16 20:56 Heparin Sodium (Porcine) (Heparin 5000 units/ml) 5,000 units EVERY 12 HOURS SUBQ 10/08/16 21:00 11/07/16 20:59 10/10/16 08:31 Magnesium Hydroxide (Mom) 30 ml HSPRN PRN ORAL Constipation 10/09/16 15:30 11/08/16 15:29 Morphine Sulfate (Morphine Sulfate) 2 mg Q4H PRN IVP Severe Pain (Pain Scale 7-10) 10/08/16 17:00 10/15/16 16:59 10/10/16 17:31 Nitroglycerin (Ntg) 0.4 mg Q5MIN X 3 DOSES PRN SL Prn Chest Pain 10/08/16 16:30 11/07/16 16:29 Ondansetron HCl (Zofran) 4 mg Q6H PRN IVP Nausea & Vomiting 10/08/16 21:30 11/07/16 21:29 Polyethylene Glycol (Miralax) 17 gm DAILYPRN PRN ORAL Constipation 10/09/16 15:30 11/08/16 15:29 Vancomycin HCl 1 ea 1 ea DAILY PRN MISC RX TO DOSE 10/08/16 16:30 11/07/16 16:29 Vancomycin HCl/ Dextrose (Vancomycin/D5W) 275 ml @ 183.708 mls/hr Q24H IVPB 10/10/16 02:00 10/15/16 01:59 10/10/16 01:56 KENAN VERDE Oct 10, 2016 23:21
--- NOTE | 2016-10-10 23:23 | Cardiology Progress Note ---
Assessment/Plan Assessment/Plan 1. Presumed syncope . Keep hydrated, electrolyte correction, normal LVEF. 2. Gram positive cocci bacteremia, IV ABx, hydration, refusing ALAN. 3. Hypothyroidism 4. Anemia Subjective Subjective Transferred to med-surg unit. No chest pain or SOB. Objective Last 24 Hour Vital Signs Date Time Temp Pulse Resp B/P Pulse Ox O2 Delivery O2 Flow Rate FiO2 10/10/16 20:00 99.7 94 22 109/73 92 Room Air 10/10/16 16:00 97.5 71 20 131/65 98 Room Air 10/10/16 12:19 97.9 84 20 94/60 95 Room Air 10/10/16 09:00 84 87 10/10/16 08:00 97.9 18 110/73 97 Room Air 10/10/16 05:38 98.0 10/10/16 04:00 98.0 72 18 124/77 95 Room Air 10/10/16 03:25 97.9 10/09/16 23:58 97.9 79 18 133/81 95 Room Air Intake and Output 10/09/16 10/10/16 19:00 07:00 Intake Total 515.000 ml 480 ml Balance 515.000 ml 480 ml Intake Oral 240 ml 480 ml IV Total 275.000 ml # Voids 2 5 2D Echo: LVEF 60-65%, Grade I LVDD Laboratory Tests Test 10/10/16 05:45 White Blood Count 8.6 K/UL (4.8-10.8) Red Blood Count 3.56 M/UL (4.20-5.40) L Hemoglobin 8.6 G/DL (12.0-16.0) L Hematocrit 28.2 % (37.0-47.0) L Mean Corpuscular Volume 79 FL (80-99) L Mean Corpuscular Hemoglobin 24.1 PG (27.0-31.0) L Mean Corpuscular Hemoglobin Concent 30.5 G/DL (32.0-36.0) L Red Cell Distribution Width 17.6 % (11.6-14.8) H Platelet Count 313 K/UL (150-450) Mean Platelet Volume 6.1 FL (6.5-10.1) L Neutrophils (%) (Auto) 69.0 % (45.0-75.0) Lymphocytes (%) (Auto) 23.4 % (20.0-45.0) Monocytes (%) (Auto) 6.1 % (1.0-10.0) Eosinophils (%) (Auto) 0.7 % (0.0-3.0) Basophils (%) (Auto) 0.7 % (0.0-2.0) Sodium Level 140 mEQ/L (135-145) Potassium Level 3.6 mEQ/L (3.4-4.9) Chloride Level 99 mEQ/L (98-107) Carbon Dioxide Level 26 mEQ/L (20-30) Anion Gap 15 (5-15) Blood Urea Nitrogen 14 mg/dL (7-23) Creatinine 0.6 mg/dL (0.5-0.9) Estimat Glomerular Filtration Rate mL/min (>60) Glucose Level 101 mg/dL (74-106) Calcium Level 9.2 mg/dL (8.6-10.2) Objective HEENT: Pupils are equal and reactive to light. Extraocular movements are intact, Ecchymosis around the maxillary and periorbital areas NECK: No JVD, no carotid bruit with upstroke 2+ B/L LUNGS: clear with no rales HEART: Normal S1 and S2. Regular, rate and rhythm. No gallops, murmurs or rubs. ABDOMEN: Soft, nontender, and nondistended. No rebound tenderness. EXTREMITIES: No cyanosis, clubbing, or edema. Right shoulder tenderness on palpation and limited range of motion. CLEO RILEY Oct 10, 2016 23:23
[2016-10-11] MEDS: Vancomycin 1gm in D5W 275ml IVPB SCH ×2 (02:01→14:01)
[2016-10-11] MEDS: Norco 5mg/325mg tab ORAL PRN (02:04)
[2016-10-11 04:23] VITALS: BP 120/70
[2016-10-11 05:10] LABS: BASOPHILS % (AUTO) 0.7 % (0.0-2.0); EOSINOPHILS % (AUTO) 0.5 % (0.0-3.0); LYMPHOCYTES % (AUTO) 28.2 % (20.0-45.0); MEAN CORPUSCULAR HEMOGLOBIN 24.1 PG (27.0-31.0); MEAN CORPUSCULAR HGB CONC 30.3 G/DL (32.0-36.0); MEAN CORPUSCULAR VOLUME 80 FL (80-99); MEAN PLATELET VOLUME 5.5 FL (6.5-10.1); MONOCYTES % (AUTO) 5.8 % (1.0-10.0); NEUTROPHILS % (AUTO) 64.9 % (45.0-75.0); PLATELET COUNT 346 K/UL (150-450); RED BLOOD COUNT 3.55 M/UL (4.20-5.40); RED CELL DISTRIBUTION WIDTH 17.8 % (11.6-14.8); WHITE BLOOD COUNT 11.2 K/UL (4.8-10.8)
[2016-10-11 05:21] LABS: ANION GAP 16 (5-15); CALCIUM 9.2 mg/dL (8.6-10.2); CARBON DIOXIDE 24 mEQ/L (20-30); CHLORIDE 100 mEQ/L (98-107); CREATININE 0.6 mg/dL (0.5-0.9); HEMOLYSIS 5; POTASSIUM 3.8 mEQ/L (3.4-4.9); SODIUM 140 mEQ/L (135-145)
[2016-10-11 07:45] VITALS: BP 134/74
[2016-10-11] MEDS: Docusate 100mg tablet ORAL SCH ×2 (08:24→21:09)
[2016-10-11] MEDS: Heparin 5000 units/ml inj SUBQ SCH ×2 (08:28→21:11)
--- NOTE | 2016-10-11 09:53 | Infectious Diseases Prog Note ---
Assessment/Plan Assessment/Plan A: The patient is a 76-year-old female with Sepsis improving Bacteremia CoNS 10/09 ( also strep V ; contaminant ) TTE : on 10/05/2016 difficult study Hx of recent hospitalization ( probable due to IV access ) Hypothyroidism CT Abd : possible colitis ( not indication clinically ) Rt shoulder fracture Right orbital floor fracture Sp syncopal episode. PLAN: Cont patient on IV vancomycin d# 5 / ( 4/ SP cefepime ) Monitor CBC. Monitor BMP. Monitor blood culture (repeat ) ALAN, rule out possibility of vegetation ( no consent available ) Subjective Constitutional: Denies: anorexia, chills, drenching sweats, fatigue, fever, no symptoms, other Allergies: Coded Allergies: No Known Allergies (Unverified , 10/05/16) Objective Vital Signs Last 24 Hour Vital Signs Date Time Temp Pulse Resp B/P Pulse Ox O2 Delivery O2 Flow Rate FiO2 10/11/16 09:14 74 79 10/11/16 09:00 74 84 92 10/11/16 07:45 97.3 74 16 134/74 100 Room Air 10/11/16 04:23 97.6 74 18 120/70 96 Room Air 10/11/16 03:03 99.7 10/10/16 20:00 99.7 94 22 109/73 92 Room Air 10/10/16 16:00 97.5 71 20 131/65 98 Room Air 10/10/16 12:19 97.9 84 20 94/60 95 Room Air Height (Feet): 5 Height (Inches): 3.00 Weight (Pounds): 150 HEENT: atraumatic Respiratory/Chest: normal breath sounds Cardiovascular: regular rhythm Abdomen: soft, non tender Microbiology Date/Time Source Procedure Growth Status 10/09/16 04:45 Blood Blood Culture - Preliminary NO GROWTH AFTER 48 HOURS Resulted 10/09/16 04:30 Blood Blood Culture - Preliminary NO GROWTH AFTER 24 HOURS Resulted Laboratory Tests Test 10/11/16 01:00 White Blood Count 11.2 K/UL (4.8-10.8) H Red Blood Count 3.55 M/UL (4.20-5.40) L Hemoglobin 8.6 G/DL (12.0-16.0) L Hematocrit 28.4 % (37.0-47.0) L Mean Corpuscular Volume 80 FL (80-99) Mean Corpuscular Hemoglobin 24.1 PG (27.0-31.0) L Mean Corpuscular Hemoglobin Concent 30.3 G/DL (32.0-36.0) L Red Cell Distribution Width 17.8 % (11.6-14.8) H Platelet Count 346 K/UL (150-450) Mean Platelet Volume 5.5 FL (6.5-10.1) L Neutrophils (%) (Auto) 64.9 % (45.0-75.0) Lymphocytes (%) (Auto) 28.2 % (20.0-45.0) Monocytes (%) (Auto) 5.8 % (1.0-10.0) Eosinophils (%) (Auto) 0.5 % (0.0-3.0) Basophils (%) (Auto) 0.7 % (0.0-2.0) Sodium Level 140 mEQ/L (135-145) Potassium Level 3.8 mEQ/L (3.4-4.9) Chloride Level 100 mEQ/L (98-107) Carbon Dioxide Level 24 mEQ/L (20-30) Anion Gap 16 (5-15) H Blood Urea Nitrogen 19 mg/dL (7-23) Creatinine 0.6 mg/dL (0.5-0.9) Estimat Glomerular Filtration Rate mL/min (>60) Glucose Level 93 mg/dL (74-106) Calcium Level 9.2 mg/dL (8.6-10.2) Vancomycin Level Trough 4.8 ug/mL (5.0-12.0) L Current Medications Medications (Trade) Dose Ordered Sig/Lorna Route PRN Reason Start Time Stop Time Status Last Admin Dose Admin Acetaminophen (Tylenol) 650 mg Q4H PRN ORAL Mild Pain (Pain Scale 1-3) 10/08/16 17:00 11/07/16 16:59 10/09/16 20:22 Acetaminophen/ Hydrocodone Bitart ([place] 5/325) 1 tab Q4H PRN ORAL MODERATE PAIN 10/08/16 17:00 10/15/16 16:59 10/11/16 02:04 Dextrose (Dextrose 50%) STAT PRN IV Hypoglycemia 10/08/16 16:30 11/07/16 16:29 Docusate Sodium (Colace) 100 mg EVERY 12 HOURS ORAL 10/08/16 21:00 11/07/16 20:59 10/11/16 08:24 Heparin Sodium (Porcine) (Heparin 5000 units/ml) 5,000 units EVERY 12 HOURS SUBQ 10/08/16 21:00 11/07/16 20:59 10/11/16 08:28 Magnesium Hydroxide (Mom) 30 ml HSPRN PRN ORAL Constipation 10/09/16 15:30 11/08/16 15:29 Morphine Sulfate (Morphine Sulfate) 2 mg Q4H PRN IVP Severe Pain (Pain Scale 7-10) 10/08/16 17:00 10/15/16 16:59 10/10/16 17:31 Nitroglycerin (Ntg) 0.4 mg Q5MIN X 3 DOSES PRN SL Prn Chest Pain 10/08/16 16:30 11/07/16 16:29 Ondansetron HCl (Zofran) 4 mg Q6H PRN IVP Nausea & Vomiting 10/08/16 21:30 11/07/16 21:29 Polyethylene Glycol (Miralax) 17 gm DAILYPRN PRN ORAL Constipation 10/09/16 15:30 11/08/16 15:29 Vancomycin HCl 1 ea 1 ea DAILY PRN MISC RX TO DOSE 10/08/16 16:30 11/07/16 16:29 Vancomycin HCl/ Dextrose (Vancomycin/D5W) 275 ml @ 183.708 mls/hr Q12H IVPB 10/11/16 14:00 10/16/16 13:59 JOSE MANUEL VAZQUEZ M.D. Oct 11, 2016 09:53
[2016-10-11] MEDS: Morphine Sulfate 2mg/ml Inj IVP PRN ×3 (10:26→21:09)
[2016-10-11 11:12] VITALS: BP 116/67
[2016-10-11 15:36] VITALS: BP 135/85
[2016-10-11 16:44] VITALS: BP 135/85
--- NOTE | 2016-10-11 17:53 | Internal Med Progress Note ---
Subjective Date of Service: Oct 11, 2016 Physician Name Cayetano Matias Attending Physician Josafat Berry MD Current Medications Medications (Trade) Dose Ordered Sig/Lorna Route PRN Reason Start Time Stop Time Status Last Admin Dose Admin Acetaminophen (Tylenol) 650 mg Q4H PRN ORAL Mild Pain (Pain Scale 1-3) 10/08/16 17:00 11/07/16 16:59 10/09/16 20:22 Acetaminophen/ Hydrocodone Bitart ([place] 5/325) 1 tab Q4H PRN ORAL MODERATE PAIN 10/08/16 17:00 10/15/16 16:59 10/11/16 02:04 Dextrose (Dextrose 50%) STAT PRN IV Hypoglycemia 10/08/16 16:30 11/07/16 16:29 Docusate Sodium (Colace) 100 mg EVERY 12 HOURS ORAL 10/08/16 21:00 11/07/16 20:59 10/11/16 08:24 Heparin Sodium (Porcine) (Heparin 5000 units/ml) 5,000 units EVERY 12 HOURS SUBQ 10/08/16 21:00 11/07/16 20:59 10/11/16 08:28 Magnesium Hydroxide (Mom) 30 ml HSPRN PRN ORAL Constipation 10/09/16 15:30 11/08/16 15:29 Morphine Sulfate (Morphine Sulfate) 2 mg Q4H PRN IVP Severe Pain (Pain Scale 7-10) 10/08/16 17:00 10/15/16 16:59 10/11/16 16:24 Nitroglycerin (Ntg) 0.4 mg Q5MIN X 3 DOSES PRN SL Prn Chest Pain 10/08/16 16:30 11/07/16 16:29 Ondansetron HCl (Zofran) 4 mg Q6H PRN IVP Nausea & Vomiting 10/08/16 21:30 11/07/16 21:29 Polyethylene Glycol (Miralax) 17 gm DAILYPRN PRN ORAL Constipation 10/09/16 15:30 11/08/16 15:29 Vancomycin HCl 1 ea 1 ea DAILY PRN MISC RX TO DOSE 10/08/16 16:30 11/07/16 16:29 Vancomycin HCl/ Dextrose (Vancomycin/D5W) 275 ml @ 183.708 mls/hr Q12H IVPB 10/11/16 14:00 10/16/16 13:59 4/6/17 14:01 Allergies: Coded Allergies: No Known Allergies (Unverified , 10/05/16) ROS Limited/Unobtainable: No Constitutional: Reports: no symptoms HEENT: Reports: no symptoms Cardiovascular: Reports: no symptoms Respiratory: Reports: no symptoms Gastrointestinal/Abdominal: Reports: no symptoms Genitourinary: Reports: no symptoms Neurologic/Psychiatric: Reports: no symptoms Subjective 76 YO F admitted with syncope. Now right humeral neck fracture and right orbital floor fracture. More alert today; eating with assistance. Await transesophageal echocardiogram. Cover for Int Shay-Dr Berry. Objective Last Vital Signs Date Time Temp Pulse Resp B/P Pulse Ox O2 Delivery O2 Flow Rate FiO2 10/11/16 16:44 97.7 77 16 135/85 97 Room Air Laboratory Tests Test 10/11/16 01:00 White Blood Count 11.2 K/UL (4.8-10.8) H Red Blood Count 3.55 M/UL (4.20-5.40) L Hemoglobin 8.6 G/DL (12.0-16.0) L Hematocrit 28.4 % (37.0-47.0) L Mean Corpuscular Volume 80 FL (80-99) Mean Corpuscular Hemoglobin 24.1 PG (27.0-31.0) L Mean Corpuscular Hemoglobin Concent 30.3 G/DL (32.0-36.0) L Red Cell Distribution Width 17.8 % (11.6-14.8) H Platelet Count 346 K/UL (150-450) Mean Platelet Volume 5.5 FL (6.5-10.1) L Neutrophils (%) (Auto) 64.9 % (45.0-75.0) Lymphocytes (%) (Auto) 28.2 % (20.0-45.0) Monocytes (%) (Auto) 5.8 % (1.0-10.0) Eosinophils (%) (Auto) 0.5 % (0.0-3.0) Basophils (%) (Auto) 0.7 % (0.0-2.0) Sodium Level 140 mEQ/L (135-145) Potassium Level 3.8 mEQ/L (3.4-4.9) Chloride Level 100 mEQ/L (98-107) Carbon Dioxide Level 24 mEQ/L (20-30) Anion Gap 16 (5-15) H Blood Urea Nitrogen 19 mg/dL (7-23) Creatinine 0.6 mg/dL (0.5-0.9) Estimat Glomerular Filtration Rate mL/min (>60) Glucose Level 93 mg/dL (74-106) Calcium Level 9.2 mg/dL (8.6-10.2) Vancomycin Level Trough 4.8 ug/mL (5.0-12.0) L Microbiology Date/Time Source Procedure Growth Status 10/09/16 04:45 Blood Blood Culture - Preliminary NO GROWTH AFTER 48 HOURS Resulted 10/09/16 04:30 Blood Blood Culture - Preliminary NO GROWTH AFTER 24 HOURS Resulted Intake and Output 10/10/16 10/11/16 19:00 07:00 Intake Total 360 ml 180 ml Balance 360 ml 180 ml Intake Oral 360 ml 180 ml # Voids 2 6 Objective General Appearance: WD/WN, no apparent distress, alert EENT: PERRL/EOMI, normal ENT inspection, other - contusion right eye Neck: non-tender, normal alignment, supple Cardiovascular: normal peripheral pulses, normal rate, regular rhythm Respiratory/Chest: chest wall non-tender, lungs clear, normal breath sounds Abdomen: normal bowel sounds, non tender, soft, no organomegaly, no mass Extremities: normal range of motion 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 See neurology consult. (2) Hypothyroidism Assessment & Plan: Cont synthroid. (3) Humeral surgical neck fracture Assessment & Plan: Non-surgical. See ortho note. (4) Orbital floor (blow-out) closed fracture Assessment & Plan: Await plastic surgery consult. (5) Syncope Assessment & Plan: See cardiology and neurology consults. MRI brain= Nondiagnostic. R/O acute [place] vs CVA (6) Sepsis Assessment & Plan: Coag neg matth. See ID consult-Dr Stubbs. Continue vanco and cefepime. Await transesophageal echocardiogram. Status: not improved Assessment/Plan Discharge planning: SNF vs home health CAYETANO MATIAS Oct 11, 2016 17:53
[2016-10-11 19:11] VITALS: BP 139/79
--- NOTE | 2016-10-11 20:56 | Cardiology Progress Note ---
Assessment/Plan Assessment/Plan 1. Presumed syncope . Keep hydrated, electrolyte correction, normal LVEF. 2. Gram positive cocci bacteremia, IV ABx, hydration, refusing ALAN. 3. Hypothyroidism 4. Anemia Subjective Subjective No chest pain or SOB. Objective Last 24 Hour Vital Signs Date Time Temp Pulse Resp B/P Pulse Ox O2 Delivery O2 Flow Rate FiO2 10/11/16 19:11 98.1 89 16 139/79 98 Room Air 10/11/16 16:44 97.7 77 16 135/85 97 Room Air 10/11/16 15:36 97.7 77 16 135/85 97 Room Air 10/11/16 11:12 97.0 78 15 116/67 98 Room Air 10/11/16 10:56 97.3 10/11/16 09:14 74 79 10/11/16 09:00 74 84 92 10/11/16 07:45 97.3 74 16 134/74 100 Room Air 10/11/16 04:23 97.6 74 18 120/70 96 Room Air 10/11/16 03:03 99.7 Intake and Output 10/10/16 10/11/16 19:00 07:00 Intake Total 360 ml 180 ml Balance 360 ml 180 ml Intake Oral 360 ml 180 ml # Voids 2 6 2D Echo: LVEF 60-65%, Grade I LVDD Laboratory Tests Test 10/11/16 01:00 White Blood Count 11.2 K/UL (4.8-10.8) H Red Blood Count 3.55 M/UL (4.20-5.40) L Hemoglobin 8.6 G/DL (12.0-16.0) L Hematocrit 28.4 % (37.0-47.0) L Mean Corpuscular Volume 80 FL (80-99) Mean Corpuscular Hemoglobin 24.1 PG (27.0-31.0) L Mean Corpuscular Hemoglobin Concent 30.3 G/DL (32.0-36.0) L Red Cell Distribution Width 17.8 % (11.6-14.8) H Platelet Count 346 K/UL (150-450) Mean Platelet Volume 5.5 FL (6.5-10.1) L Neutrophils (%) (Auto) 64.9 % (45.0-75.0) Lymphocytes (%) (Auto) 28.2 % (20.0-45.0) Monocytes (%) (Auto) 5.8 % (1.0-10.0) Eosinophils (%) (Auto) 0.5 % (0.0-3.0) Basophils (%) (Auto) 0.7 % (0.0-2.0) Sodium Level 140 mEQ/L (135-145) Potassium Level 3.8 mEQ/L (3.4-4.9) Chloride Level 100 mEQ/L (98-107) Carbon Dioxide Level 24 mEQ/L (20-30) Anion Gap 16 (5-15) H Blood Urea Nitrogen 19 mg/dL (7-23) Creatinine 0.6 mg/dL (0.5-0.9) Estimat Glomerular Filtration Rate mL/min (>60) Glucose Level 93 mg/dL (74-106) Calcium Level 9.2 mg/dL (8.6-10.2) Vancomycin Level Trough 4.8 ug/mL (5.0-12.0) L Microbiology Date/Time Source Procedure Growth Status 10/09/16 04:45 Blood Blood Culture - Preliminary NO GROWTH AFTER 48 HOURS Resulted 10/09/16 04:30 Blood Blood Culture - Preliminary NO GROWTH AFTER 24 HOURS Resulted Objective HEENT: Pupils are equal and reactive to light. Extraocular movements are intact, Ecchymosis around the maxillary and periorbital areas NECK: No JVD, no carotid bruit with upstroke 2+ B/L LUNGS: clear with no rales HEART: Normal S1 and S2. Regular, rate and rhythm. No gallops, murmurs or rubs. ABDOMEN: Soft, nontender, and nondistended. No rebound tenderness. EXTREMITIES: No cyanosis, clubbing, or edema. Right shoulder tenderness on palpation and limited range of motion. CLEO RILEY Oct 11, 2016 20:56
[2016-10-12] VITALS (7 sets, daily range): BP systolic 102–132; BP diastolic 55–78
[2016-10-12] MEDS: Vancomycin 1gm in D5W 275ml IVPB SCH ×2 (02:15→14:41)
[2016-10-12] MEDS: Morphine Sulfate 2mg/ml Inj IVP PRN ×3 (02:23→21:36)
[2016-10-12 07:31] LABS: BASOPHILS % (AUTO) 0.8 % (0.0-2.0); EOSINOPHILS % (AUTO) 0.5 % (0.0-3.0); LYMPHOCYTES % (AUTO) 23.3 % (20.0-45.0); MEAN CORPUSCULAR HEMOGLOBIN 24.3 PG (27.0-31.0); MEAN CORPUSCULAR HGB CONC 30.7 G/DL (32.0-36.0); MEAN CORPUSCULAR VOLUME 79 FL (80-99); MEAN PLATELET VOLUME 5.8 FL (6.5-10.1); MONOCYTES % (AUTO) 5.9 % (1.0-10.0); NEUTROPHILS % (AUTO) 69.5 % (45.0-75.0); PLATELET COUNT 386 K/UL (150-450); RED BLOOD COUNT 3.66 M/UL (4.20-5.40); RED CELL DISTRIBUTION WIDTH 17.3 % (11.6-14.8); WHITE BLOOD COUNT 10.2 K/UL (4.8-10.8)
[2016-10-12 07:38] LABS: ANION GAP 17 (5-15); CALCIUM 9.3 mg/dL (8.6-10.2); CARBON DIOXIDE 25 mEQ/L (20-30); CHLORIDE 98 mEQ/L (98-107); CREATININE 0.6 mg/dL (0.5-0.9); HEMOLYSIS 1; POTASSIUM 3.4 mEQ/L (3.4-4.9); SODIUM 140 mEQ/L (135-145)
[2016-10-12] MEDS: Docusate 100mg tablet ORAL SCH ×2 (09:02→20:31)
[2016-10-12] MEDS: Heparin 5000 units/ml inj SUBQ SCH ×2 (09:04→20:34)
[2016-10-12] MEDS: Norco 5mg/325mg tab ORAL PRN (14:20)
--- NOTE | 2016-10-12 16:58 | Internal Med Progress Note ---
Subjective Date of Service: Oct 12, 2016 Physician Name Cayetano Matias Attending Physician Josafat Berry MD Current Medications Medications (Trade) Dose Ordered Sig/Lorna Route PRN Reason Start Time Stop Time Status Last Admin Dose Admin Acetaminophen (Tylenol) 650 mg Q4H PRN ORAL Mild Pain (Pain Scale 1-3) 10/08/16 17:00 11/07/16 16:59 10/09/16 20:22 Acetaminophen/ Hydrocodone Bitart ([place] 5/325) 1 tab Q4H PRN ORAL MODERATE PAIN 10/08/16 17:00 10/15/16 16:59 10/12/16 14:20 Dextrose (Dextrose 50%) STAT PRN IV Hypoglycemia 10/08/16 16:30 11/07/16 16:29 Docusate Sodium (Colace) 100 mg EVERY 12 HOURS ORAL 10/08/16 21:00 11/07/16 20:59 10/12/16 09:02 Heparin Sodium (Porcine) (Heparin 5000 units/ml) 5,000 units EVERY 12 HOURS SUBQ 10/08/16 21:00 11/07/16 20:59 10/12/16 09:04 Magnesium Hydroxide (Mom) 30 ml HSPRN PRN ORAL Constipation 10/09/16 15:30 11/08/16 15:29 Morphine Sulfate (Morphine Sulfate) 2 mg Q4H PRN IVP Severe Pain (Pain Scale 7-10) 10/08/16 17:00 10/15/16 16:59 10/12/16 02:23 Nitroglycerin (Ntg) 0.4 mg Q5MIN X 3 DOSES PRN SL Prn Chest Pain 10/08/16 16:30 11/07/16 16:29 Ondansetron HCl (Zofran) 4 mg Q6H PRN IVP Nausea & Vomiting 10/08/16 21:30 11/07/16 21:29 Polyethylene Glycol (Miralax) 17 gm DAILYPRN PRN ORAL Constipation 10/09/16 15:30 11/08/16 15:29 10/11/16 21:09 Vancomycin HCl 1 ea 1 ea DAILY PRN MISC RX TO DOSE 10/08/16 16:30 11/07/16 16:29 Vancomycin HCl 1 gm/Dextrose 275 ml @ 183.708 mls/hr Q12H IVPB 10/11/16 14:00 10/12/16 18:00 10/12/16 14:41 Vancomycin HCl/ Dextrose (Vancomycin/D5W) 275 ml @ 183.708 mls/hr Q12HR@0000,1200 IVPB 10/13/16 00:00 10/18/16 00:00 Allergies: Coded Allergies: No Known Allergies (Unverified , 10/05/16) ROS Limited/Unobtainable: No Constitutional: Reports: no symptoms HEENT: Reports: no symptoms Cardiovascular: Reports: no symptoms Respiratory: Reports: no symptoms Gastrointestinal/Abdominal: Reports: no symptoms Genitourinary: Reports: no symptoms Neurologic/Psychiatric: Reports: no symptoms Subjective 76 YO F admitted with syncope. Now right humeral neck fracture and right orbital floor fracture. More alert today; eating with assistance. Await transesophageal echocardiogram. Await psych eval. Cover for Int Shay-Dr Berry. Objective Last Vital Signs Date Time Temp Pulse Resp B/P Pulse Ox O2 Delivery O2 Flow Rate FiO2 10/12/16 16:26 97.0 75 15 102/55 94 Room Air Laboratory Tests Test 10/12/16 06:25 10/12/16 13:40 White Blood Count 10.2 K/UL (4.8-10.8) Red Blood Count 3.66 M/UL (4.20-5.40) L Hemoglobin 8.9 G/DL (12.0-16.0) L Hematocrit 29.0 % (37.0-47.0) L Mean Corpuscular Volume 79 FL (80-99) L Mean Corpuscular Hemoglobin 24.3 PG (27.0-31.0) L Mean Corpuscular Hemoglobin Concent 30.7 G/DL (32.0-36.0) L Red Cell Distribution Width 17.3 % (11.6-14.8) H Platelet Count 386 K/UL (150-450) Mean Platelet Volume 5.8 FL (6.5-10.1) L Neutrophils (%) (Auto) 69.5 % (45.0-75.0) Lymphocytes (%) (Auto) 23.3 % (20.0-45.0) Monocytes (%) (Auto) 5.9 % (1.0-10.0) Eosinophils (%) (Auto) 0.5 % (0.0-3.0) Basophils (%) (Auto) 0.8 % (0.0-2.0) Sodium Level 140 mEQ/L (135-145) Potassium Level 3.4 mEQ/L (3.4-4.9) Chloride Level 98 mEQ/L (98-107) Carbon Dioxide Level 25 mEQ/L (20-30) Anion Gap 17 (5-15) H Blood Urea Nitrogen 12 mg/dL (7-23) Creatinine 0.6 mg/dL (0.5-0.9) Estimat Glomerular Filtration Rate mL/min (>60) Glucose Level 92 mg/dL (74-106) Calcium Level 9.3 mg/dL (8.6-10.2) Vancomycin Level Trough 10.5 ug/mL (5.0-12.0) Intake and Output 10/11/16 10/12/16 19:00 07:00 Intake Total 800 ml 755.000 ml Output Total 800 ml Balance 0 ml 755.000 ml Intake Oral 800 ml 480 ml IV Total 275.000 ml Output Urine Total 800 ml # Voids 3 Objective General Appearance: WD/WN, no apparent distress, alert EENT: PERRL/EOMI, normal ENT inspection, other - contusion right eye Neck: non-tender, normal alignment, supple Cardiovascular: normal peripheral pulses, normal rate, regular rhythm Respiratory/Chest: chest wall non-tender, lungs clear, normal breath sounds Abdomen: normal bowel sounds, non tender, soft, no organomegaly, no mass Extremities: normal range of motion 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 See neurology consult. (2) Hypothyroidism Assessment & Plan: Cont synthroid. (3) Humeral surgical neck fracture Assessment & Plan: Non-surgical. See ortho note. (4) Orbital floor (blow-out) closed fracture Assessment & Plan: Await plastic surgery consult. (5) Syncope Assessment & Plan: See cardiology and neurology consults. MRI brain= Nondiagnostic. R/O acute [place] vs CVA (6) Sepsis Assessment & Plan: Coag neg staph. See ID consult-Dr Stubbs. Continue vanco D# 12/15 Await transesophageal echocardiogram. (7) Non compliance with medical treatment Assessment & Plan: Await psych consult. Status: progressing Assessment/Plan Discharge planning: Patient refused [facility] fac. CAYETANO MATIAS Oct 12, 2016 16:58
[2016-10-12] MEDS ORDERED: Tubing IV Secondary IV ONE (19:21)
--- NOTE | 2016-10-12 20:45 | Pulmonology Progress Note ---
Assessment/Plan Problems: (1) Shoulder fracture, right (2) Orbital wall fracture (3) Sepsis (4) Orbital floor (blow-out) closed fracture Assessment/Plan pt/ot dc iv fluid blanco culture adjust iv antibiotics 2d Echo, results pending Subjective ROS Limited/Unobtainable: No Constitutional: Reports: anorexia, chills, fatigue HEENT: Repors: congestion, coryza, discharge, dysphagia, earache, hearing change, post-nasal drip, visual change Musculoskeletal: Reports: pain, stiffness, swelling Allergies: Coded Allergies: No Known Allergies (Unverified , 10/05/16) Objective Last 24 Hour Vital Signs Date Time Temp Pulse Resp B/P Pulse Ox O2 Delivery O2 Flow Rate FiO2 10/12/16 20:28 97.7 77 18 128/78 100 Room Air 10/12/16 18:06 97.0 10/12/16 16:26 97.0 75 15 102/55 94 Room Air 10/12/16 15:19 97.9 10/12/16 12:00 97.9 80 20 107/68 100 Nasal Cannula 10/12/16 09:00 77 86 10/12/16 08:56 96.9 77 19 132/70 99 Room Air 10/12/16 06:14 97.5 79 20 127/60 99 Room Air 10/12/16 02:56 96.8 74 18 115/71 98 Room Air Intake and Output 10/11/16 10/12/16 19:00 07:00 Intake Total 800 ml 755.000 ml Output Total 800 ml Balance 0 ml 755.000 ml Intake Oral 800 ml 480 ml IV Total 275.000 ml Output Urine Total 800 ml # Voids 3 General Appearance: no acute distress HEENT: normocephalic, PERRL, other - periborbital swelling and tenderness with flammatory changes Respiratory/Chest: chest wall non-tender, decreased breath sounds, accessory muscle use Breasts: no masses Cardiovascular: normal peripheral pulses, normal rate, regular rhythm, no JVD Abdomen: normal bowel sounds, soft, non tender, no organomegaly, non distended Genitourinary: normal external genitalia Extremities: no cyanosis Skin: rash, lesions 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, no motor/sensory deficits Laboratory Tests 10/12/16 06:25: White Blood Count 10.2, Red Blood Count 3.66L, Hemoglobin 8.9L, Hematocrit 29.0L , Mean Corpuscular Volume 79L, Mean Corpuscular Hemoglobin 24.3L, Mean Corpuscular Hemoglobin Concent 30.7L, Red Cell Distribution Width 17.3H, Platelet Count 386, Mean Platelet Volume 5.8L, Neutrophils (%) (Auto) 69.5, Lymphocytes (%) (Auto) 23.3, Monocytes (%) (Auto) 5.9, Eosinophils (%) (Auto) 0.5, Basophils (%) (Auto) 0.8, Sodium Level 140, Potassium Level 3.4, Chloride Level 98, Carbon Dioxide Level 25, Anion Gap 17H, Blood Urea Nitrogen 12, Creatinine 0.6, Estimat Glomerular Filtration Rate , Glucose Level 92, Calcium Level 9.3 10/12/16 13:40: Vancomycin Level Trough 10.5 Current Medications Medications (Trade) Dose Ordered Sig/Lorna Route PRN Reason Start Time Stop Time Status Last Admin Dose Admin Acetaminophen (Tylenol) 650 mg Q4H PRN ORAL Mild Pain (Pain Scale 1-3) 10/08/16 17:00 11/07/16 16:59 10/09/16 20:22 Acetaminophen/ Hydrocodone Bitart ([place] 5/325) 1 tab Q4H PRN ORAL MODERATE PAIN 10/08/16 17:00 10/15/16 16:59 10/12/16 14:20 Dextrose (Dextrose 50%) STAT PRN IV Hypoglycemia 10/08/16 16:30 11/07/16 16:29 Docusate Sodium (Colace) 100 mg EVERY 12 HOURS ORAL 10/08/16 21:00 11/07/16 20:59 10/12/16 20:31 Heparin Sodium (Porcine) (Heparin 5000 units/ml) 5,000 units EVERY 12 HOURS SUBQ 10/08/16 21:00 11/07/16 20:59 10/12/16 20:34 Magnesium Hydroxide (Mom) 30 ml HSPRN PRN ORAL Constipation 10/09/16 15:30 11/08/16 15:29 Morphine Sulfate (Morphine Sulfate) 2 mg Q4H PRN IVP Severe Pain (Pain Scale 7-10) 10/08/16 17:00 10/15/16 16:59 10/12/16 17:36 Nitroglycerin (Ntg) 0.4 mg Q5MIN X 3 DOSES PRN SL Prn Chest Pain 10/08/16 16:30 11/07/16 16:29 Ondansetron HCl (Zofran) 4 mg Q6H PRN IVP Nausea & Vomiting 10/08/16 21:30 11/07/16 21:29 Polyethylene Glycol (Miralax) 17 gm DAILYPRN PRN ORAL Constipation 10/09/16 15:30 11/08/16 15:29 10/11/16 21:09 Vancomycin HCl 1 ea 1 ea DAILY PRN MISC RX TO DOSE 10/08/16 16:30 11/07/16 16:29 Vancomycin HCl/ Dextrose (Vancomycin/D5W) 275 ml @ 183.708 mls/hr Q12HR@0000,1200 IVPB 10/13/16 00:00 10/18/16 00:00 KENAN VERED Oct 12, 2016 20:45
[2016-10-12] MEDS: Vancomycin 1.25 GM in D5W 275 ML IVPB SCH (23:58)
[2016-10-13] VITALS (7 sets, daily range): BP systolic 91–129; BP diastolic 53–79
[2016-10-13] MEDS: Morphine Sulfate 2mg/ml Inj IVP PRN ×4 (02:23→23:52)
[2016-10-13 07:08] LABS: BASOPHILS % (AUTO) 1.1 % (0.0-2.0); EOSINOPHILS % (AUTO) 1.1 % (0.0-3.0); LYMPHOCYTES % (AUTO) 26.2 % (20.0-45.0); MEAN CORPUSCULAR HEMOGLOBIN 24.2 PG (27.0-31.0); MEAN CORPUSCULAR HGB CONC 30.7 G/DL (32.0-36.0); MEAN CORPUSCULAR VOLUME 79 FL (80-99); MEAN PLATELET VOLUME 5.8 FL (6.5-10.1); MONOCYTES % (AUTO) 7.3 % (1.0-10.0); NEUTROPHILS % (AUTO) 64.4 % (45.0-75.0); PLATELET COUNT 397 K/UL (150-450); RED BLOOD COUNT 3.65 M/UL (4.20-5.40); RED CELL DISTRIBUTION WIDTH 17.8 % (11.6-14.8); WHITE BLOOD COUNT 9.4 K/UL (4.8-10.8)
[2016-10-13 07:24] LABS: ANION GAP 15 (5-15); CALCIUM 9.1 mg/dL (8.6-10.2); CARBON DIOXIDE 26 mEQ/L (20-30); CHLORIDE 97 mEQ/L (98-107); CREATININE 0.6 mg/dL (0.5-0.9); HEMOLYSIS 0; POTASSIUM 3.4 mEQ/L (3.4-4.9); SODIUM 138 mEQ/L (135-145)
[2016-10-13] MEDS: Heparin 5000 units/ml inj SUBQ SCH ×2 (09:29→20:58)
[2016-10-13] MEDS: Docusate 100mg tablet ORAL SCH ×2 (09:29→20:54)
--- NOTE | 2016-10-13 11:00 | Infectious Diseases Prog Note ---
Assessment/Plan Assessment/Plan A: The patient is a 76-year-old female with Sepsis improving Bacteremia CoNS 10/09 ( also strep V ; contaminant ) TTE : on 10/05/2016 difficult study , pt refused ALAN, rule out possibility of vegetation Hx of recent hospitalization ( probable due to IV access ) Hypothyroidism CT Abd : possible colitis ( not indication clinically ) Rt shoulder fracture Right orbital floor fracture Sp syncopal episode. PLAN: Cont patient on IV vancomycin d# / ( / SP cefepime ) Monitor CBC. Monitor BMP. Monitor blood culture (repeat ) Subjective Constitutional: Denies: anorexia, chills, drenching sweats, fatigue, fever, no symptoms, other Allergies: Coded Allergies: No Known Allergies (Unverified , 10/05/16) Objective Vital Signs Last 24 Hour Vital Signs Date Time Temp Pulse Resp B/P Pulse Ox O2 Delivery O2 Flow Rate FiO2 10/13/16 09:02 85 88 10/13/16 08:53 78 10/13/16 08:16 97.5 70 18 129/79 96 Room Air 10/13/16 04:00 97.9 67 18 91/53 Room Air 10/13/16 02:53 97.3 10/13/16 01:16 97.3 70 18 124/62 100 Room Air 10/13/16 00:00 97.3 70 18 124/62 100 Room Air 10/12/16 20:28 97.7 77 18 128/78 100 Room Air 10/12/16 16:26 97.0 75 15 102/55 94 Room Air 10/12/16 15:19 97.9 10/12/16 12:00 97.9 80 20 107/68 100 Nasal Cannula Height (Feet): 5 Height (Inches): 3.00 Weight (Pounds): 150 HEENT: anicteric Respiratory/Chest: no respiratory distress Cardiovascular: regular rhythm Abdomen: no organomegaly Laboratory Tests Test 10/12/16 13:40 10/13/16 05:00 Vancomycin Level Trough 10.5 ug/mL (5.0-12.0) White Blood Count 9.4 K/UL (4.8-10.8) Red Blood Count 3.65 M/UL (4.20-5.40) L Hemoglobin 8.8 G/DL (12.0-16.0) L Hematocrit 28.8 % (37.0-47.0) L Mean Corpuscular Volume 79 FL (80-99) L Mean Corpuscular Hemoglobin 24.2 PG (27.0-31.0) L Mean Corpuscular Hemoglobin Concent 30.7 G/DL (32.0-36.0) L Red Cell Distribution Width 17.8 % (11.6-14.8) H Platelet Count 397 K/UL (150-450) Mean Platelet Volume 5.8 FL (6.5-10.1) L Neutrophils (%) (Auto) 64.4 % (45.0-75.0) Lymphocytes (%) (Auto) 26.2 % (20.0-45.0) Monocytes (%) (Auto) 7.3 % (1.0-10.0) Eosinophils (%) (Auto) 1.1 % (0.0-3.0) Basophils (%) (Auto) 1.1 % (0.0-2.0) Sodium Level 138 mEQ/L (135-145) Potassium Level 3.4 mEQ/L (3.4-4.9) Chloride Level 97 mEQ/L (98-107) L Carbon Dioxide Level 26 mEQ/L (20-30) Anion Gap 15 (5-15) Blood Urea Nitrogen 12 mg/dL (7-23) Creatinine 0.6 mg/dL (0.5-0.9) Estimat Glomerular Filtration Rate mL/min (>60) Glucose Level 100 mg/dL (74-106) Calcium Level 9.1 mg/dL (8.6-10.2) Current Medications Medications (Trade) Dose Ordered Sig/Lorna Route PRN Reason Start Time Stop Time Status Last Admin Dose Admin Acetaminophen (Tylenol) 650 mg Q4H PRN ORAL Mild Pain (Pain Scale 1-3) 10/08/16 17:00 11/07/16 16:59 10/09/16 20:22 Acetaminophen/ Hydrocodone Bitart ([place] 5/325) 1 tab Q4H PRN ORAL MODERATE PAIN 10/08/16 17:00 10/15/16 16:59 10/12/16 14:20 Dextrose (Dextrose 50%) STAT PRN IV Hypoglycemia 10/08/16 16:30 11/07/16 16:29 Docusate Sodium (Colace) 100 mg EVERY 12 HOURS ORAL 10/08/16 21:00 11/07/16 20:59 10/13/16 09:29 Heparin Sodium (Porcine) (Heparin 5000 units/ml) 5,000 units EVERY 12 HOURS SUBQ 10/08/16 21:00 11/07/16 20:59 10/13/16 09:29 Magnesium Hydroxide (Mom) 30 ml HSPRN PRN ORAL Constipation 10/09/16 15:30 11/08/16 15:29 Morphine Sulfate (Morphine Sulfate) 2 mg Q4H PRN IVP Severe Pain (Pain Scale 7-10) 10/08/16 17:00 10/15/16 16:59 10/13/16 02:23 Nitroglycerin (Ntg) 0.4 mg Q5MIN X 3 DOSES PRN SL Prn Chest Pain 10/08/16 16:30 11/07/16 16:29 Ondansetron HCl (Zofran) 4 mg Q6H PRN IVP Nausea & Vomiting 10/08/16 21:30 11/07/16 21:29 Polyethylene Glycol (Miralax) 17 gm DAILYPRN PRN ORAL Constipation 10/09/16 15:30 11/08/16 15:29 10/11/16 21:09 Vancomycin HCl 1 ea 1 ea DAILY PRN MISC RX TO DOSE 10/08/16 16:30 11/07/16 16:29 Vancomycin HCl/ Dextrose (Vancomycin/D5W) 275 ml @ 183.708 mls/hr Q12HR@0000,1200 IVPB 10/13/16 00:00 10/18/16 00:00 10/12/16 23:58 JOSE MANUEL VAZQUEZ M.D. Oct 13, 2016 11:00
[2016-10-13] MEDS: Vancomycin 1.25 GM in D5W 275 ML IVPB SCH ×2 (12:40→23:51)
--- NOTE | 2016-10-13 15:20 | Internal Med Progress Note ---
Subjective Date of Service: Oct 13, 2016 Physician Name Ganesh Matias Attending Physician Josafat Berry MD Current Medications Medications (Trade) Dose Ordered Sig/Lorna Route PRN Reason Start Time Stop Time Status Last Admin Dose Admin Acetaminophen (Tylenol) 650 mg Q4H PRN ORAL Mild Pain (Pain Scale 1-3) 10/08/16 17:00 11/07/16 16:59 10/09/16 20:22 Acetaminophen/ Hydrocodone Bitart ([place] 5/325) 1 tab Q4H PRN ORAL MODERATE PAIN 10/08/16 17:00 10/15/16 16:59 10/12/16 14:20 Dextrose (Dextrose 50%) STAT PRN IV Hypoglycemia 10/08/16 16:30 11/07/16 16:29 Docusate Sodium (Colace) 100 mg EVERY 12 HOURS ORAL 10/08/16 21:00 11/07/16 20:59 10/13/16 09:29 Heparin Sodium (Porcine) (Heparin 5000 units/ml) 5,000 units EVERY 12 HOURS SUBQ 10/08/16 21:00 11/07/16 20:59 10/13/16 09:29 Magnesium Hydroxide (Mom) 30 ml HSPRN PRN ORAL Constipation 10/09/16 15:30 11/08/16 15:29 Morphine Sulfate (Morphine Sulfate) 2 mg Q4H PRN IVP Severe Pain (Pain Scale 7-10) 10/08/16 17:00 10/15/16 16:59 10/13/16 12:39 Nitroglycerin (Ntg) 0.4 mg Q5MIN X 3 DOSES PRN SL Prn Chest Pain 10/08/16 16:30 11/07/16 16:29 Ondansetron HCl (Zofran) 4 mg Q6H PRN IVP Nausea & Vomiting 10/08/16 21:30 11/07/16 21:29 Polyethylene Glycol (Miralax) 17 gm DAILYPRN PRN ORAL Constipation 10/09/16 15:30 11/08/16 15:29 10/11/16 21:09 Vancomycin HCl 1 ea 1 ea DAILY PRN MISC RX TO DOSE 10/08/16 16:30 11/07/16 16:29 Vancomycin HCl/ Dextrose (Vancomycin/D5W) 275 ml @ 183.708 mls/hr Q12HR@0000,1200 IVPB 10/13/16 00:00 10/18/16 00:00 10/13/16 12:40 Allergies: Coded Allergies: No Known Allergies (Unverified , 10/05/16) ROS Limited/Unobtainable: Yes Subjective 76 YO F admitted with syncope. Now right humeral neck fracture and right orbital floor fracture. More alert today; eating with assistance. Await transesophageal echocardiogram. Await psych eval. Cover for Int Med-Dr Berry. Objective Last Vital Signs Date Time Temp Pulse Resp B/P Pulse Ox O2 Delivery O2 Flow Rate FiO2 10/13/16 11:50 97.0 80 18 97/57 97 Room Air Laboratory Tests Test 10/13/16 05:00 White Blood Count 9.4 K/UL (4.8-10.8) Red Blood Count 3.65 M/UL (4.20-5.40) L Hemoglobin 8.8 G/DL (12.0-16.0) L Hematocrit 28.8 % (37.0-47.0) L Mean Corpuscular Volume 79 FL (80-99) L Mean Corpuscular Hemoglobin 24.2 PG (27.0-31.0) L Mean Corpuscular Hemoglobin Concent 30.7 G/DL (32.0-36.0) L Red Cell Distribution Width 17.8 % (11.6-14.8) H Platelet Count 397 K/UL (150-450) Mean Platelet Volume 5.8 FL (6.5-10.1) L Neutrophils (%) (Auto) 64.4 % (45.0-75.0) Lymphocytes (%) (Auto) 26.2 % (20.0-45.0) Monocytes (%) (Auto) 7.3 % (1.0-10.0) Eosinophils (%) (Auto) 1.1 % (0.0-3.0) Basophils (%) (Auto) 1.1 % (0.0-2.0) Sodium Level 138 mEQ/L (135-145) Potassium Level 3.4 mEQ/L (3.4-4.9) Chloride Level 97 mEQ/L (98-107) L Carbon Dioxide Level 26 mEQ/L (20-30) Anion Gap 15 (5-15) Blood Urea Nitrogen 12 mg/dL (7-23) Creatinine 0.6 mg/dL (0.5-0.9) Estimat Glomerular Filtration Rate mL/min (>60) Glucose Level 100 mg/dL (74-106) Calcium Level 9.1 mg/dL (8.6-10.2) Intake and Output 10/12/16 10/13/16 19:00 07:00 Intake Total 715.000 ml 580.000 ml Output Total 500 ml 300 ml Balance 215.000 ml 280.000 ml Intake Oral 440 ml 305 ml IV Total 275.000 ml 275.000 ml Output Urine Total 500 ml 300 ml # Voids 3 2 Objective General Appearance: WD/WN, no apparent distress, alert EENT: PERRL/EOMI, normal ENT inspection, other - contusion right eye Neck: non-tender, normal alignment, supple Cardiovascular: normal peripheral pulses, normal rate, regular rhythm Respiratory/Chest: chest wall non-tender, lungs clear, normal breath sounds Abdomen: normal bowel sounds, non tender, soft, no organomegaly, no mass Extremities: normal range of motion Neurologic: form 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 See neurology consult. (2) Hypothyroidism Assessment & Plan: Cont synthroid. (3) Humeral surgical neck fracture Assessment & Plan: Non-surgical. See ortho note. (4) Orbital floor (blow-out) closed fracture Assessment & Plan: Await plastic surgery consult. (5) Syncope Assessment & Plan: See cardiology and neurology consults. MRI brain= Nondiagnostic. R/O acute DC vs CVA (6) Sepsis Assessment & Plan: Coag neg staph. See ID consult-Dr Stubbs. Continue vanco D# 12/15 Await transesophageal echocardiogram. (7) Non compliance with medical treatment Assessment & Plan: Await psych consult. Status: not improved Assessment/Plan Discharge planning: Patient refused [facility] fac. GANESH MATIAS Oct 13, 2016 15:20
--- NOTE | 2016-10-13 23:31 | Pulmonology Progress Note ---
Assessment/Plan Problems: (1) Shoulder fracture, right (2) Orbital wall fracture (3) Sepsis (4) Orbital floor (blow-out) closed fracture Assessment/Plan pt/ot dc iv fluid blanco culture adjust iv antibiotics 2d Echo, results pending Subjective ROS Limited/Unobtainable: No Constitutional: Reports: anorexia, fatigue HEENT: Repors: congestion, coryza, discharge, dysphagia, earache, hearing change, post-nasal drip, visual change Respiratory: Reports: dry cough, shortness of breath Musculoskeletal: Reports: pain, stiffness, swelling Allergies: Coded Allergies: No Known Allergies (Unverified , 10/05/16) Objective Last 24 Hour Vital Signs Date Time Temp Pulse Resp B/P Pulse Ox O2 Delivery O2 Flow Rate FiO2 10/13/16 20:00 97.8 86 20 109/70 96 Room Air 10/13/16 19:03 97.5 10/13/16 16:14 97.5 78 20 102/66 97 Room Air 10/13/16 11:50 97.0 80 18 97/57 97 Room Air 10/13/16 09:02 85 88 10/13/16 08:53 78 10/13/16 08:16 97.5 70 18 129/79 96 Room Air 10/13/16 04:00 97.9 67 18 91/53 Room Air 10/13/16 01:16 97.3 70 18 124/62 100 Room Air 10/13/16 00:00 97.3 70 18 124/62 100 Room Air Intake and Output 10/12/16 10/13/16 19:00 07:00 Intake Total 715.000 ml 580.000 ml Output Total 500 ml 300 ml Balance 215.000 ml 280.000 ml Intake Oral 440 ml 305 ml IV Total 275.000 ml 275.000 ml Output Urine Total 500 ml 300 ml # Voids 3 2 General Appearance: no acute distress HEENT: PERRL, other - periborbital swelling and eccymosis Respiratory/Chest: chest wall non-tender, no respiratory distress, no accessory muscle use Breasts: no masses Cardiovascular: normal peripheral pulses, normal rate, regular rhythm, no JVD Abdomen: normal bowel sounds, soft, non tender, no organomegaly, non distended , no scars Genitourinary: normal external genitalia Extremities: no cyanosis Skin: no rash, no lesions 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, no motor/sensory deficits Laboratory Tests 10/13/16 05:00: White Blood Count 9.4, Red Blood Count 3.65L, Hemoglobin 8.8L, Hematocrit 28.8L , Mean Corpuscular Volume 79L, Mean Corpuscular Hemoglobin 24.2L, Mean Corpuscular Hemoglobin Concent 30.7L, Red Cell Distribution Width 17.8H, Platelet Count 397, Mean Platelet Volume 5.8L, Neutrophils (%) (Auto) 64.4, Lymphocytes (%) (Auto) 26.2, Monocytes (%) (Auto) 7.3, Eosinophils (%) (Auto) 1.1, Basophils (%) (Auto) 1.1, Sodium Level 138, Potassium Level 3.4, Chloride Level 97L, Carbon Dioxide Level 26, Anion Gap 15, Blood Urea Nitrogen 12, Creatinine 0.6, Estimat Glomerular Filtration Rate , Glucose Level 100, Calcium Level 9.1 Current Medications Medications (Trade) Dose Ordered Sig/Lorna Route PRN Reason Start Time Stop Time Status Last Admin Dose Admin Acetaminophen (Tylenol) 650 mg Q4H PRN ORAL Mild Pain (Pain Scale 1-3) 10/08/16 17:00 11/07/16 16:59 10/09/16 20:22 Acetaminophen/ Hydrocodone Bitart ([place] 5/325) 1 tab Q4H PRN ORAL MODERATE PAIN 10/08/16 17:00 10/15/16 16:59 10/12/16 14:20 Dextrose (Dextrose 50%) STAT PRN IV Hypoglycemia 10/08/16 16:30 11/07/16 16:29 Docusate Sodium (Colace) 100 mg EVERY 12 HOURS ORAL 10/08/16 21:00 11/07/16 20:59 10/13/16 20:54 Heparin Sodium (Porcine) (Heparin 5000 units/ml) 5,000 units EVERY 12 HOURS SUBQ 10/08/16 21:00 11/07/16 20:59 10/13/16 20:58 Magnesium Hydroxide (Mom) 30 ml HSPRN PRN ORAL Constipation 10/09/16 15:30 11/08/16 15:29 Morphine Sulfate (Morphine Sulfate) 2 mg Q4H PRN IVP Severe Pain (Pain Scale 7-10) 10/08/16 17:00 10/15/16 16:59 10/13/16 18:33 Nitroglycerin (Ntg) 0.4 mg Q5MIN X 3 DOSES PRN SL Prn Chest Pain 10/08/16 16:30 11/07/16 16:29 Ondansetron HCl (Zofran) 4 mg Q6H PRN IVP Nausea & Vomiting 10/08/16 21:30 11/07/16 21:29 Polyethylene Glycol (Miralax) 17 gm DAILYPRN PRN ORAL Constipation 10/09/16 15:30 11/08/16 15:29 10/11/16 21:09 Vancomycin HCl 1 ea 1 ea DAILY PRN MISC RX TO DOSE 10/08/16 16:30 11/07/16 16:29 Vancomycin HCl/ Dextrose (Vancomycin/D5W) 275 ml @ 183.708 mls/hr Q12HR@0000,1200 IVPB 10/13/16 00:00 10/18/16 00:00 10/13/16 12:40 KENAN VERDE Oct 13, 2016 23:31
[2016-10-14] VITALS: BP 125/74
[2016-10-14 04:00] VITALS: BP 103/64
[2016-10-14] MEDS: Morphine Sulfate 2mg/ml Inj IVP PRN ×2 (04:10→12:48)
[2016-10-14 07:07] LABS: ANION GAP 17 (5-15); CALCIUM 9.3 mg/dL (8.6-10.2); CARBON DIOXIDE 25 mEQ/L (20-30); CHLORIDE 98 mEQ/L (98-107); CREATININE 0.7 mg/dL (0.5-0.9); HEMOLYSIS 4; POTASSIUM 3.2 mEQ/L (3.4-4.9); SODIUM 140 mEQ/L (135-145)
[2016-10-14 07:28] LABS: BASOPHILS % (AUTO) 1.1 % (0.0-2.0); EOSINOPHILS % (AUTO) 1.6 % (0.0-3.0); LYMPHOCYTES % (AUTO) 24.6 % (20.0-45.0); MEAN CORPUSCULAR HEMOGLOBIN 25.1 PG (27.0-31.0); MEAN CORPUSCULAR HGB CONC 31.7 G/DL (32.0-36.0); MEAN CORPUSCULAR VOLUME 79 FL (80-99); MEAN PLATELET VOLUME 5.3 FL (6.5-10.1); MONOCYTES % (AUTO) 5.4 % (1.0-10.0); NEUTROPHILS % (AUTO) 67.3 % (45.0-75.0); PLATELET COUNT 444 K/UL (150-450); RED BLOOD COUNT 3.57 M/UL (4.20-5.40); RED CELL DISTRIBUTION WIDTH 17.9 % (11.6-14.8); WHITE BLOOD COUNT 9.7 K/UL (4.8-10.8)
[2016-10-14 08:10] VITALS: BP 112/72
--- NOTE | 2016-10-14 09:26 | Infectious Diseases Prog Note ---
Assessment/Plan Assessment/Plan A; Bacteremia R sided colitis Syncope R shoulder fracture Right orbital floor fracture P; continue Vancomycin Subjective ROS Limited/Unobtainable: Yes Musculoskeletal: Reports: other - in right shoulder, pain Allergies: Coded Allergies: No Known Allergies (Unverified , 10/05/16) Objective Vital Signs Last 24 Hour Vital Signs Date Time Temp Pulse Resp B/P Pulse Ox O2 Delivery O2 Flow Rate FiO2 10/14/16 08:10 97.4 88 20 112/72 94 Room Air 10/14/16 04:00 97.3 89 20 103/64 97 Room Air 10/14/16 00:00 98.1 84 22 125/74 100 Room Air 10/13/16 20:00 97.8 86 20 109/70 96 Room Air 10/13/16 19:03 97.5 10/13/16 16:14 97.5 78 20 102/66 97 Room Air 10/13/16 11:50 97.0 80 18 97/57 97 Room Air Height (Feet): 5 Height (Inches): 3.00 Weight (Pounds): 150 General Appearance: no acute distress HEENT: other - R eye swelling Respiratory/Chest: lungs clear Cardiovascular: normal rate Abdomen: soft, non tender Extremities: no edema, other - R shoulder sling Laboratory Tests Test 10/14/16 05:30 White Blood Count 9.7 K/UL (4.8-10.8) Red Blood Count 3.57 M/UL (4.20-5.40) L Hemoglobin 9.0 G/DL (12.0-16.0) L Hematocrit 28.2 % (37.0-47.0) L Mean Corpuscular Volume 79 FL (80-99) L Mean Corpuscular Hemoglobin 25.1 PG (27.0-31.0) L Mean Corpuscular Hemoglobin Concent 31.7 G/DL (32.0-36.0) L Red Cell Distribution Width 17.9 % (11.6-14.8) H Platelet Count 444 K/UL (150-450) Mean Platelet Volume 5.3 FL (6.5-10.1) L Neutrophils (%) (Auto) 67.3 % (45.0-75.0) Lymphocytes (%) (Auto) 24.6 % (20.0-45.0) Monocytes (%) (Auto) 5.4 % (1.0-10.0) Eosinophils (%) (Auto) 1.6 % (0.0-3.0) Basophils (%) (Auto) 1.1 % (0.0-2.0) Sodium Level 140 mEQ/L (135-145) Potassium Level 3.2 mEQ/L (3.4-4.9) L Chloride Level 98 mEQ/L (98-107) Carbon Dioxide Level 25 mEQ/L (20-30) Anion Gap 17 (5-15) H Blood Urea Nitrogen 16 mg/dL (7-23) Creatinine 0.7 mg/dL (0.5-0.9) Estimat Glomerular Filtration Rate mL/min (>60) Glucose Level 97 mg/dL (74-106) Calcium Level 9.3 mg/dL (8.6-10.2) Current Medications Medications (Trade) Dose Ordered Sig/Lorna Route PRN Reason Start Time Stop Time Status Last Admin Dose Admin Acetaminophen (Tylenol) 650 mg Q4H PRN ORAL Mild Pain (Pain Scale 1-3) 10/08/16 17:00 11/07/16 16:59 10/09/16 20:22 Acetaminophen/ Hydrocodone Bitart ([place] 5/325) 1 tab Q4H PRN ORAL MODERATE PAIN 10/08/16 17:00 10/15/16 16:59 10/12/16 14:20 Dextrose (Dextrose 50%) STAT PRN IV Hypoglycemia 10/08/16 16:30 11/07/16 16:29 Docusate Sodium (Colace) 100 mg EVERY 12 HOURS ORAL 10/08/16 21:00 11/07/16 20:59 10/13/16 20:54 Heparin Sodium (Porcine) (Heparin 5000 units/ml) 5,000 units EVERY 12 HOURS SUBQ 10/08/16 21:00 11/07/16 20:59 10/13/16 20:58 Magnesium Hydroxide (Mom) 30 ml HSPRN PRN ORAL Constipation 10/09/16 15:30 11/08/16 15:29 Morphine Sulfate (Morphine Sulfate) 2 mg Q4H PRN IVP Severe Pain (Pain Scale 7-10) 10/08/16 17:00 10/15/16 16:59 10/14/16 04:10 Nitroglycerin (Ntg) 0.4 mg Q5MIN X 3 DOSES PRN SL Prn Chest Pain 10/08/16 16:30 11/07/16 16:29 Ondansetron HCl (Zofran) 4 mg Q6H PRN IVP Nausea & Vomiting 10/08/16 21:30 11/07/16 21:29 Polyethylene Glycol (Miralax) 17 gm DAILYPRN PRN ORAL Constipation 10/09/16 15:30 11/08/16 15:29 10/11/16 21:09 Vancomycin HCl 1 ea 1 ea DAILY PRN MISC RX TO DOSE 10/08/16 16:30 11/07/16 16:29 Vancomycin HCl/ Dextrose (Vancomycin/D5W) 275 ml @ 183.708 mls/hr Q12HR@0000,1200 IVPB 10/13/16 00:00 10/18/16 00:00 10/13/16 23:51 YESIKA WITT Oct 14, 2016 09:26
[2016-10-14] MEDS: Heparin 5000 units/ml inj SUBQ SCH ×2 (10:17→21:08)
[2016-10-14] MEDS: Docusate 100mg tablet ORAL SCH ×2 (10:18→21:00)
[2016-10-14 12:00] VITALS: BP 108/56
[2016-10-14] MEDS: Vancomycin 1.25 GM in D5W 275 ML IVPB SCH ×2 (12:42→23:53)
--- NOTE | 2016-10-14 15:29 | Internal Med Progress Note ---
Subjective Date of Service: Oct 14, 2016 Physician Name Cayetano Matias Attending Physician Josafat Berry MD Current Medications Medications (Trade) Dose Ordered Sig/Lorna Route PRN Reason Start Time Stop Time Status Last Admin Dose Admin Acetaminophen (Tylenol) 650 mg Q4H PRN ORAL Mild Pain (Pain Scale 1-3) 10/08/16 17:00 11/07/16 16:59 10/09/16 20:22 Acetaminophen/ Hydrocodone Bitart ([place] 5/325) 1 tab Q4H PRN ORAL MODERATE PAIN 10/08/16 17:00 10/15/16 16:59 10/12/16 14:20 Dextrose (Dextrose 50%) STAT PRN IV Hypoglycemia 10/08/16 16:30 11/07/16 16:29 Docusate Sodium (Colace) 100 mg EVERY 12 HOURS ORAL 10/08/16 21:00 11/07/16 20:59 10/14/16 10:18 Heparin Sodium (Porcine) (Heparin 5000 units/ml) 5,000 units EVERY 12 HOURS SUBQ 10/08/16 21:00 11/07/16 20:59 10/14/16 10:17 Magnesium Hydroxide (Mom) 30 ml HSPRN PRN ORAL Constipation 10/09/16 15:30 11/08/16 15:29 Morphine Sulfate (Morphine Sulfate) 2 mg Q4H PRN IVP Severe Pain (Pain Scale 7-10) 10/08/16 17:00 10/15/16 16:59 10/14/16 12:48 Nitroglycerin (Ntg) 0.4 mg Q5MIN X 3 DOSES PRN SL Prn Chest Pain 10/08/16 16:30 11/07/16 16:29 Ondansetron HCl (Zofran) 4 mg Q6H PRN IVP Nausea & Vomiting 10/08/16 21:30 11/07/16 21:29 Polyethylene Glycol (Miralax) 17 gm DAILYPRN PRN ORAL Constipation 10/09/16 15:30 11/08/16 15:29 10/11/16 21:09 Vancomycin HCl 1 ea 1 ea DAILY PRN MISC RX TO DOSE 10/08/16 16:30 11/07/16 16:29 Vancomycin HCl/ Dextrose (Vancomycin/D5W) 275 ml @ 183.708 mls/hr Q12HR@0000,1200 IVPB 10/13/16 00:00 10/18/16 00:00 10/14/16 12:42 Allergies: Coded Allergies: No Known Allergies (Unverified , 10/05/16) ROS Limited/Unobtainable: No Constitutional: Reports: no symptoms HEENT: Reports: no symptoms Cardiovascular: Reports: no symptoms Respiratory: Reports: no symptoms Gastrointestinal/Abdominal: Reports: no symptoms Genitourinary: Reports: no symptoms Neurologic/Psychiatric: Reports: no symptoms Subjective 76 YO F admitted with syncope. Now right humeral neck fracture and right orbital floor fracture. C/O right hand pain. Await transesophageal echocardiogram. Await psych eval. Cover for Int Shay-Dr Berry. Objective Last Vital Signs Date Time Temp Pulse Resp B/P Pulse Ox O2 Delivery O2 Flow Rate FiO2 10/14/16 12:00 97.9 100 18 108/56 95 Room Air Laboratory Tests Test 10/14/16 05:30 White Blood Count 9.7 K/UL (4.8-10.8) Red Blood Count 3.57 M/UL (4.20-5.40) L Hemoglobin 9.0 G/DL (12.0-16.0) L Hematocrit 28.2 % (37.0-47.0) L Mean Corpuscular Volume 79 FL (80-99) L Mean Corpuscular Hemoglobin 25.1 PG (27.0-31.0) L Mean Corpuscular Hemoglobin Concent 31.7 G/DL (32.0-36.0) L Red Cell Distribution Width 17.9 % (11.6-14.8) H Platelet Count 444 K/UL (150-450) Mean Platelet Volume 5.3 FL (6.5-10.1) L Neutrophils (%) (Auto) 67.3 % (45.0-75.0) Lymphocytes (%) (Auto) 24.6 % (20.0-45.0) Monocytes (%) (Auto) 5.4 % (1.0-10.0) Eosinophils (%) (Auto) 1.6 % (0.0-3.0) Basophils (%) (Auto) 1.1 % (0.0-2.0) Sodium Level 140 mEQ/L (135-145) Potassium Level 3.2 mEQ/L (3.4-4.9) L Chloride Level 98 mEQ/L (98-107) Carbon Dioxide Level 25 mEQ/L (20-30) Anion Gap 17 (5-15) H Blood Urea Nitrogen 16 mg/dL (7-23) Creatinine 0.7 mg/dL (0.5-0.9) Estimat Glomerular Filtration Rate mL/min (>60) Glucose Level 97 mg/dL (74-106) Calcium Level 9.3 mg/dL (8.6-10.2) Intake and Output 10/13/16 10/14/16 19:00 07:00 Intake Total 720 ml 395.000 ml Balance 720 ml 395.000 ml Intake Oral 720 ml 120 ml IV Total 275.000 ml # Voids 3 4 Objective General Appearance: WD/WN, no apparent distress, alert EENT: PERRL/EOMI, normal ENT inspection, other - contusion right eye Neck: non-tender, normal alignment, supple Cardiovascular: normal peripheral pulses, normal rate, regular rhythm Respiratory/Chest: chest wall non-tender, lungs clear, normal breath sounds Abdomen: normal bowel sounds, non tender, soft, no organomegaly, no mass Extremities: normal range of motion Neurologic: development technologist II-XII 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 See neurology consult. (2) Hypothyroidism Assessment & Plan: Cont synthroid. (3) Humeral surgical neck fracture Assessment & Plan: Non-surgical. See ortho note. (4) Orbital floor (blow-out) closed fracture Assessment & Plan: Await plastic surgery consult. (5) Syncope Assessment & Plan: See cardiology and neurology consults. MRI brain= Nondiagnostic. R/O acute [place] vs CVA (6) Sepsis Assessment & Plan: Coag neg staph. See ID consult-Dr Stubbs. Continue vanco D# 12/15 Await transesophageal echocardiogram. (7) Non compliance with medical treatment Assessment & Plan: Await psych consult. Status: progressing Assessment/Plan Discharge planning: Patient refused assisted fac. CAYETANO MATIAS Oct 14, 2016 15:29
[2016-10-14 16:00] VITALS: BP 110/62
--- NOTE | 2016-10-14 19:17 | Pulmonology Progress Note ---
Assessment/Plan Problems: (1) Shoulder fracture, right (2) Orbital wall fracture (3) Sepsis (4) Orbital floor (blow-out) closed fracture Assessment/Plan pt/ot dc iv fluid blanco culture adjust iv antibiotics 2d Echo, results pending Subjective ROS Limited/Unobtainable: No Constitutional: Reports: anorexia, fatigue Respiratory: Reports: productive cough, shortness of breath, sputum Musculoskeletal: Reports: pain, stiffness, swelling Allergies: Coded Allergies: No Known Allergies (Unverified , 10/05/16) Objective Last 24 Hour Vital Signs Date Time Temp Pulse Resp B/P Pulse Ox O2 Delivery O2 Flow Rate FiO2 10/14/16 16:00 97.6 96 18 110/62 94 Room Air 10/14/16 12:00 97.9 100 18 108/56 95 Room Air 10/14/16 08:10 97.4 88 20 112/72 94 Room Air 10/14/16 04:00 97.3 89 20 103/64 97 Room Air 10/14/16 00:00 98.1 84 22 125/74 100 Room Air 10/13/16 20:00 97.8 86 20 109/70 96 Room Air Intake and Output 10/13/16 10/14/16 19:00 07:00 Intake Total 720 ml 395.000 ml Balance 720 ml 395.000 ml Intake Oral 720 ml 120 ml IV Total 275.000 ml # Voids 3 4 General Appearance: no acute distress HEENT: normocephalic, atraumatic, PERRL Respiratory/Chest: chest wall non-tender, decreased breath sounds, accessory muscle use Breasts: no masses Cardiovascular: normal peripheral pulses, normal rate, regular rhythm, no JVD Abdomen: normal bowel sounds, soft, non tender, no organomegaly Genitourinary: normal external genitalia Extremities: no cyanosis Skin: no rash, no lesions Neurologic/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: manager quality 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-XII grossly normal, no motor/sensory deficits Laboratory Tests 10/14/16 05:30: White Blood Count 9.7, Red Blood Count 3.57L, Hemoglobin 9.0L, Hematocrit 28.2L , Mean Corpuscular Volume 79L, Mean Corpuscular Hemoglobin 25.1L, Mean Corpuscular Hemoglobin Concent 31.7L, Red Cell Distribution Width 17.9H, Platelet Count 444, Mean Platelet Volume 5.3L, Neutrophils (%) (Auto) 67.3, Lymphocytes (%) (Auto) 24.6, Monocytes (%) (Auto) 5.4, Eosinophils (%) (Auto) 1.6, Basophils (%) (Auto) 1.1, Sodium Level 140, Potassium Level 3.2L, Chloride Level 98, Carbon Dioxide Level 25, Anion Gap 17H, Blood Urea Nitrogen 16, Creatinine 0.7, Estimat Glomerular Filtration Rate , Glucose Level 97, Calcium Level 9.3 Current Medications Medications (Trade) Dose Ordered Sig/Lorna Route PRN Reason Start Time Stop Time Status Last Admin Dose Admin Acetaminophen (Tylenol) 650 mg Q4H PRN ORAL Mild Pain (Pain Scale 1-3) 10/08/16 17:00 11/07/16 16:59 10/09/16 20:22 Acetaminophen/ Hydrocodone Bitart ([place] 5/325) 1 tab Q4H PRN ORAL MODERATE PAIN 10/08/16 17:00 10/15/16 16:59 10/12/16 14:20 Dextrose (Dextrose 50%) STAT PRN IV Hypoglycemia 10/08/16 16:30 11/07/16 16:29 Docusate Sodium (Colace) 100 mg EVERY 12 HOURS ORAL 10/08/16 21:00 11/07/16 20:59 10/14/16 10:18 Heparin Sodium (Porcine) (Heparin 5000 units/ml) 5,000 units EVERY 12 HOURS SUBQ 10/08/16 21:00 11/07/16 20:59 10/14/16 10:17 Magnesium Hydroxide (Mom) 30 ml HSPRN PRN ORAL Constipation 10/09/16 15:30 11/08/16 15:29 Morphine Sulfate (Morphine Sulfate) 2 mg Q4H PRN IVP Moderate Pain (Pain Scale 4-6) 10/14/16 17:00 10/21/16 16:59 Morphine Sulfate (Morphine Sulfate) 4 mg Q4H PRN IVP Severe Pain (Pain Scale 7-10) 10/14/16 15:30 10/21/16 15:29 Nitroglycerin (Ntg) 0.4 mg Q5MIN X 3 DOSES PRN SL Prn Chest Pain 10/08/16 16:30 11/07/16 16:29 Ondansetron HCl (Zofran) 4 mg Q6H PRN IVP Nausea & Vomiting 10/08/16 21:30 11/07/16 21:29 Polyethylene Glycol (Miralax) 17 gm DAILYPRN PRN ORAL Constipation 10/09/16 15:30 11/08/16 15:29 10/11/16 21:09 Vancomycin HCl 1 ea 1 ea DAILY PRN MISC RX TO DOSE 10/08/16 16:30 11/07/16 16:29 Vancomycin HCl/ Dextrose (Vancomycin/D5W) 275 ml @ 183.708 mls/hr Q12HR@0000,1200 IVPB 10/13/16 00:00 10/18/16 00:00 10/14/16 12:42 KENAN VERDE Oct 14, 2016 19:17
[2016-10-14 20:00] VITALS: BP 135/80
[2016-10-14] MEDS: Morphine Sulfate 4mg/ml Inj IVP PRN (20:16)
[2016-10-15] VITALS: BP 124/71
[2016-10-15] MEDS: Morphine Sulfate 4mg/ml Inj IVP PRN ×3 (01:39→20:11)
[2016-10-15 04:00] VITALS: BP 128/74
[2016-10-15 07:47] LABS: BASOPHILS % (AUTO) 1.5 % (0.0-2.0); EOSINOPHILS % (AUTO) 1.4 % (0.0-3.0); LYMPHOCYTES % (AUTO) 28.6 % (20.0-45.0); MEAN CORPUSCULAR HEMOGLOBIN 24.1 PG (27.0-31.0); MEAN CORPUSCULAR HGB CONC 30.1 G/DL (32.0-36.0); MEAN CORPUSCULAR VOLUME 80 FL (80-99); MEAN PLATELET VOLUME 5.3 FL (6.5-10.1); MONOCYTES % (AUTO) 6.7 % (1.0-10.0); NEUTROPHILS % (AUTO) 61.7 % (45.0-75.0); PLATELET COUNT 408 K/UL (150-450); RED BLOOD COUNT 3.53 M/UL (4.20-5.40); RED CELL DISTRIBUTION WIDTH 18.6 % (11.6-14.8); WHITE BLOOD COUNT 7.3 K/UL (4.8-10.8)
[2016-10-15 07:50] VITALS: BP 121/62
[2016-10-15 08:18] LABS: ANION GAP 17 (5-15); CALCIUM 9.4 mg/dL (8.6-10.2); CARBON DIOXIDE 24 mEQ/L (20-30); CHLORIDE 98 mEQ/L (98-107); CREATININE 0.6 mg/dL (0.5-0.9); HEMOLYSIS 3; SODIUM 139 mEQ/L (135-145)
--- NOTE | 2016-10-15 10:08 | Infectious Diseases Prog Note ---
Assessment/Plan Assessment/Plan A: The patient is a 76-year-old female with Sepsis SP Bacteremia CoNS 10/09 ( also strep V ; contaminant ) TTE : on 10/05/2016 difficult study , pt refused ALAN, rule out possibility of vegetation Hx of recent hospitalization ( probable due to IV access ) Hypothyroidism CT Abd : possible colitis ( not indication clinically ) Rt shoulder fracture Right orbital floor fracture Sp syncopal episode. PLAN: Cont patient on IV vancomycin d# 9 / ( 4/ SP cefepime ) Monitor CBC. Monitor BMP. Subjective Constitutional: Denies: anorexia, chills, drenching sweats, fatigue, fever, no symptoms, other Allergies: Coded Allergies: No Known Allergies (Unverified , 10/05/16) Objective Vital Signs Last 24 Hour Vital Signs Date Time Temp Pulse Resp B/P Pulse Ox O2 Delivery O2 Flow Rate FiO2 10/15/16 07:50 98.1 76 18 121/62 95 Room Air 10/15/16 04:00 96.7 74 18 128/74 97 Room Air 10/15/16 02:10 98.6 10/15/16 00:00 98.6 78 18 124/71 98 Room Air 10/14/16 20:00 98.4 80 20 135/80 97 Room Air 10/14/16 16:00 97.6 96 18 110/62 94 Room Air 10/14/16 12:00 97.9 100 18 108/56 95 Room Air Height (Feet): 5 Height (Inches): 3.00 Weight (Pounds): 150 HEENT: anicteric Respiratory/Chest: lungs clear Cardiovascular: normal rate Abdomen: no organomegaly Laboratory Tests Test 10/15/16 06:30 White Blood Count 7.3 K/UL (4.8-10.8) Red Blood Count 3.53 M/UL (4.20-5.40) L Hemoglobin 8.5 G/DL (12.0-16.0) L Hematocrit 28.3 % (37.0-47.0) L Mean Corpuscular Volume 80 FL (80-99) Mean Corpuscular Hemoglobin 24.1 PG (27.0-31.0) L Mean Corpuscular Hemoglobin Concent 30.1 G/DL (32.0-36.0) L Red Cell Distribution Width 18.6 % (11.6-14.8) H Platelet Count 408 K/UL (150-450) Mean Platelet Volume 5.3 FL (6.5-10.1) L Neutrophils (%) (Auto) 61.7 % (45.0-75.0) Lymphocytes (%) (Auto) 28.6 % (20.0-45.0) Monocytes (%) (Auto) 6.7 % (1.0-10.0) Eosinophils (%) (Auto) 1.4 % (0.0-3.0) Basophils (%) (Auto) 1.5 % (0.0-2.0) Sodium Level 139 mEQ/L (135-145) Potassium Level 4.0 mEQ/L (3.4-4.9) Chloride Level 98 mEQ/L (98-107) Carbon Dioxide Level 24 mEQ/L (20-30) Anion Gap 17 (5-15) H Blood Urea Nitrogen 10 mg/dL (7-23) Creatinine 0.6 mg/dL (0.5-0.9) Estimat Glomerular Filtration Rate mL/min (>60) Glucose Level 94 mg/dL (74-106) Calcium Level 9.4 mg/dL (8.6-10.2) Current Medications Medications (Trade) Dose Ordered Sig/Lorna Route PRN Reason Start Time Stop Time Status Last Admin Dose Admin Acetaminophen (Tylenol) 650 mg Q4H PRN ORAL Mild Pain (Pain Scale 1-3) 10/08/16 17:00 11/07/16 16:59 10/09/16 20:22 Acetaminophen/ Hydrocodone Bitart ([place] 5/325) 1 tab Q4H PRN ORAL MODERATE PAIN 10/08/16 17:00 10/15/16 16:59 10/12/16 14:20 Dextrose (Dextrose 50%) STAT PRN IV Hypoglycemia 10/08/16 16:30 11/07/16 16:29 Docusate Sodium (Colace) 100 mg EVERY 12 HOURS ORAL 10/08/16 21:00 11/07/16 20:59 10/14/16 10:18 Heparin Sodium (Porcine) (Heparin 5000 units/ml) 5,000 units EVERY 12 HOURS SUBQ 10/08/16 21:00 11/07/16 20:59 10/14/16 21:08 Magnesium Hydroxide (Mom) 30 ml HSPRN PRN ORAL Constipation 4/4/17 15:30 11/08/16 15:29 Morphine Sulfate (Morphine Sulfate) 2 mg Q4H PRN IVP Moderate Pain (Pain Scale 4-6) 10/14/16 17:00 10/21/16 16:59 Morphine Sulfate (Morphine Sulfate) 4 mg Q4H PRN IVP Severe Pain (Pain Scale 7-10) 10/14/16 15:30 10/21/16 15:29 10/15/16 01:39 Nitroglycerin (Ntg) 0.4 mg Q5MIN X 3 DOSES PRN SL Prn Chest Pain 10/08/16 16:30 11/07/16 16:29 Ondansetron HCl (Zofran) 4 mg Q6H PRN IVP Nausea & Vomiting 10/08/16 21:30 11/07/16 21:29 Polyethylene Glycol (Miralax) 17 gm DAILYPRN PRN ORAL Constipation 10/09/16 15:30 11/08/16 15:29 10/11/16 21:09 Vancomycin HCl 1 ea 1 ea DAILY PRN MISC RX TO DOSE 10/08/16 16:30 11/07/16 16:29 Vancomycin HCl/ Dextrose (Vancomycin/D5W) 275 ml @ 183.708 mls/hr Q12HR@0000,1200 IVPB 10/13/16 00:00 10/18/16 00:00 10/14/16 23:53 JOSE MANUEL VAZQUEZ M.D. Oct 15, 2016 10:08
[2016-10-15] MEDS: Docusate 100mg tablet ORAL SCH ×2 (10:18→20:11)
[2016-10-15] MEDS: Heparin 5000 units/ml inj SUBQ SCH ×2 (10:19→20:15)
--- NOTE | 2016-10-15 11:28 | Internal Med Progress Note ---
Subjective Date of Service: Oct 15, 2016 Physician Name Cayetano Matias Attending Physician Josafat Berry MD Current Medications Medications (Trade) Dose Ordered Sig/Lorna Route PRN Reason Start Time Stop Time Status Last Admin Dose Admin Acetaminophen (Tylenol) 650 mg Q4H PRN ORAL Mild Pain (Pain Scale 1-3) 10/08/16 17:00 11/07/16 16:59 10/09/16 20:22 Acetaminophen/ Hydrocodone Bitart ([place] 5/325) 1 tab Q4H PRN ORAL MODERATE PAIN 10/08/16 17:00 10/15/16 16:59 10/12/16 14:20 Dextrose (Dextrose 50%) STAT PRN IV Hypoglycemia 10/08/16 16:30 11/07/16 16:29 Docusate Sodium (Colace) 100 mg EVERY 12 HOURS ORAL 10/08/16 21:00 11/07/16 20:59 10/15/16 10:18 Heparin Sodium (Porcine) (Heparin 5000 units/ml) 5,000 units EVERY 12 HOURS SUBQ 10/08/16 21:00 11/07/16 20:59 10/15/16 10:19 Magnesium Hydroxide (Mom) 30 ml HSPRN PRN ORAL Constipation 10/09/16 15:30 11/08/16 15:29 Morphine Sulfate (Morphine Sulfate) 2 mg Q4H PRN IVP Moderate Pain (Pain Scale 4-6) 10/14/16 17:00 10/21/16 16:59 Morphine Sulfate (Morphine Sulfate) 4 mg Q4H PRN IVP Severe Pain (Pain Scale 7-10) 10/14/16 15:30 10/21/16 15:29 10/15/16 10:21 Nitroglycerin (Ntg) 0.4 mg Q5MIN X 3 DOSES PRN SL Prn Chest Pain 10/08/16 16:30 11/07/16 16:29 Ondansetron HCl (Zofran) 4 mg Q6H PRN IVP Nausea & Vomiting 10/08/16 21:30 11/07/16 21:29 Polyethylene Glycol (Miralax) 17 gm DAILYPRN PRN ORAL Constipation 10/09/16 15:30 11/08/16 15:29 10/11/16 21:09 Vancomycin HCl 1 ea 1 ea DAILY PRN MISC RX TO DOSE 10/08/16 16:30 11/07/16 16:29 Vancomycin HCl/ Dextrose (Vancomycin/D5W) 275 ml @ 183.708 mls/hr Q12HR@0000,1200 IVPB 10/13/16 00:00 10/18/16 00:00 10/14/16 23:53 Allergies: Coded Allergies: No Known Allergies (Unverified , 10/05/16) ROS Limited/Unobtainable: No Constitutional: Reports: no symptoms HEENT: Reports: no symptoms Cardiovascular: Reports: no symptoms Respiratory: Reports: no symptoms Gastrointestinal/Abdominal: Reports: no symptoms Genitourinary: Reports: no symptoms Neurologic/Psychiatric: Reports: no symptoms Subjective 76 YO F admitted with syncope. Now right humeral neck fracture and right orbital floor fracture. C/O right hand pain. Await transesophageal echocardiogram. Await psych eval. Cover for Int Shay-Dr Berry. Objective Last Vital Signs Date Time Temp Pulse Resp B/P Pulse Ox O2 Delivery O2 Flow Rate FiO2 10/15/16 07:50 98.1 76 18 121/62 95 Room Air Laboratory Tests Test 10/15/16 06:30 White Blood Count 7.3 K/UL (4.8-10.8) Red Blood Count 3.53 M/UL (4.20-5.40) L Hemoglobin 8.5 G/DL (12.0-16.0) L Hematocrit 28.3 % (37.0-47.0) L Mean Corpuscular Volume 80 FL (80-99) Mean Corpuscular Hemoglobin 24.1 PG (27.0-31.0) L Mean Corpuscular Hemoglobin Concent 30.1 G/DL (32.0-36.0) L Red Cell Distribution Width 18.6 % (11.6-14.8) H Platelet Count 408 K/UL (150-450) Mean Platelet Volume 5.3 FL (6.5-10.1) L Neutrophils (%) (Auto) 61.7 % (45.0-75.0) Lymphocytes (%) (Auto) 28.6 % (20.0-45.0) Monocytes (%) (Auto) 6.7 % (1.0-10.0) Eosinophils (%) (Auto) 1.4 % (0.0-3.0) Basophils (%) (Auto) 1.5 % (0.0-2.0) Sodium Level 139 mEQ/L (135-145) Potassium Level 4.0 mEQ/L (3.4-4.9) Chloride Level 98 mEQ/L (98-107) Carbon Dioxide Level 24 mEQ/L (20-30) Anion Gap 17 (5-15) H Blood Urea Nitrogen 10 mg/dL (7-23) Creatinine 0.6 mg/dL (0.5-0.9) Estimat Glomerular Filtration Rate mL/min (>60) Glucose Level 94 mg/dL (74-106) Calcium Level 9.4 mg/dL (8.6-10.2) Intake and Output 10/14/16 10/15/16 19:00 07:00 Intake Total 720 ml 275.000 ml Balance 720 ml 275.000 ml Intake Oral 720 ml IV Total 275.000 ml # Voids 4 2 Objective General Appearance: WD/WN, no apparent distress, alert EENT: PERRL/EOMI, normal ENT inspection, other - contusion right eye Neck: non-tender, normal alignment, supple Cardiovascular: normal peripheral pulses, normal rate, regular rhythm Respiratory/Chest: chest wall non-tender, lungs clear, normal breath sounds Abdomen: normal bowel sounds, non tender, soft, no organomegaly, no mass Extremities: normal range of motion Neurologic: manager registration II-XII 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 See neurology consult. (2) Hypothyroidism Assessment & Plan: Cont synthroid. (3) Humeral surgical neck fracture Assessment & Plan: Non-surgical. See ortho note. (4) Orbital floor (blow-out) closed fracture Assessment & Plan: Await plastic surgery consult. (5) Syncope Assessment & Plan: See cardiology and neurology consults. MRI brain= Nondiagnostic. R/O acute [place] vs CVA (6) Sepsis Assessment & Plan: Coag neg staph. See ID consult-Dr Stubbs. Continue vanco D# 12/15 Await transesophageal echocardiogram. (7) Non compliance with medical treatment Assessment & Plan: Await psych consult. Status: progressing Assessment/Plan Discharge planning: Patient refused residential fac. CAYETANO MATIAS Oct 15, 2016 11:28
[2016-10-15 12:00] VITALS: BP 143/76
[2016-10-15] MEDS: Vancomycin 1.25 GM in D5W 275 ML IVPB SCH ×2 (12:25→23:55)
[2016-10-15 16:00] VITALS: BP 116/65
--- NOTE | 2016-10-15 19:51 | Pulmonology Progress Note ---
Assessment/Plan Problems: (1) Shoulder fracture, right (2) Orbital wall fracture (3) Sepsis (4) Orbital floor (blow-out) closed fracture Assessment/Plan pt/ot dc iv fluid blanco culture adjust iv antibiotics 2d Echo, results pending Subjective ROS Limited/Unobtainable: No Constitutional: Reports: anorexia, fatigue Musculoskeletal: Reports: pain, stiffness, swelling Allergies: Coded Allergies: No Known Allergies (Unverified , 10/05/16) Objective Last 24 Hour Vital Signs Date Time Temp Pulse Resp B/P Pulse Ox O2 Delivery O2 Flow Rate FiO2 10/15/16 16:00 97.0 82 18 116/65 98 Room Air 10/15/16 12:00 97.2 86 18 143/76 98 Room Air 10/15/16 07:50 98.1 76 18 121/62 95 Room Air 10/15/16 04:00 96.7 74 18 128/74 97 Room Air 10/15/16 02:10 98.6 10/15/16 00:00 98.6 78 18 124/71 98 Room Air 10/14/16 20:00 98.4 80 20 135/80 97 Room Air Intake and Output 10/14/16 10/15/16 19:00 07:00 Intake Total 720 ml 275.000 ml Balance 720 ml 275.000 ml Intake Oral 720 ml IV Total 275.000 ml # Voids 4 2 General Appearance: no acute distress HEENT: normocephalic, atraumatic, PERRL Respiratory/Chest: chest wall non-tender, normal breath sounds, no respiratory distress Breasts: no masses Cardiovascular: normal peripheral pulses, normal rate, regular rhythm, no JVD Abdomen: normal bowel sounds, soft, non tender, no organomegaly Genitourinary: normal external genitalia Extremities: no cyanosis Skin: no rash, no lesions Neurologic/Psychiatric: 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 normal, no motor/sensory deficits Laboratory Tests 10/15/16 06:30: White Blood Count 7.3, Red Blood Count 3.53L, Hemoglobin 8.5L, Hematocrit 28.3L , Mean Corpuscular Volume 80, Mean Corpuscular Hemoglobin 24.1L, Mean Corpuscular Hemoglobin Concent 30.1L, Red Cell Distribution Width 18.6H, Platelet Count 408, Mean Platelet Volume 5.3L, Neutrophils (%) (Auto) 61.7, Lymphocytes (%) (Auto) 28.6, Monocytes (%) (Auto) 6.7, Eosinophils (%) (Auto) 1.4, Basophils (%) (Auto) 1.5, Sodium Level 139, Potassium Level 4.0, Chloride Level 98, Carbon Dioxide Level 24, Anion Gap 17H, Blood Urea Nitrogen 10, Creatinine 0.6, Estimat Glomerular Filtration Rate , Glucose Level 94, Calcium Level 9.4 Current Medications Medications (Trade) Dose Ordered Sig/Lorna Route PRN Reason Start Time Stop Time Status Last Admin Dose Admin Acetaminophen (Tylenol) 650 mg Q4H PRN ORAL Mild Pain (Pain Scale 1-3) 10/08/16 17:00 11/07/16 16:59 10/09/16 20:22 Dextrose (Dextrose 50%) STAT PRN IV Hypoglycemia 10/08/16 16:30 11/07/16 16:29 Docusate Sodium (Colace) 100 mg EVERY 12 HOURS ORAL 10/08/16 21:00 11/07/16 20:59 10/15/16 10:18 Heparin Sodium (Porcine) (Heparin 5000 units/ml) 5,000 units EVERY 12 HOURS SUBQ 10/08/16 21:00 11/07/16 20:59 10/15/16 10:19 Magnesium Hydroxide (Mom) 30 ml HSPRN PRN ORAL Constipation 10/09/16 15:30 11/08/16 15:29 Morphine Sulfate (Morphine Sulfate) 2 mg Q4H PRN IVP Moderate Pain (Pain Scale 4-6) 10/14/16 17:00 10/21/16 16:59 Morphine Sulfate (Morphine Sulfate) 4 mg Q4H PRN IVP Severe Pain (Pain Scale 7-10) 10/14/16 15:30 10/21/16 15:29 10/15/16 10:21 Nitroglycerin (Ntg) 0.4 mg Q5MIN X 3 DOSES PRN SL Prn Chest Pain 10/08/16 16:30 11/07/16 16:29 Ondansetron HCl (Zofran) 4 mg Q6H PRN IVP Nausea & Vomiting 10/08/16 21:30 11/07/16 21:29 Polyethylene Glycol (Miralax) 17 gm DAILYPRN PRN ORAL Constipation 10/09/16 15:30 11/08/16 15:29 10/11/16 21:09 Vancomycin HCl 1 ea 1 ea DAILY PRN MISC RX TO DOSE 10/08/16 16:30 11/07/16 16:29 Vancomycin HCl/ Dextrose (Vancomycin/D5W) 275 ml @ 183.708 mls/hr Q12HR@0000,1200 IVPB 10/13/16 00:00 10/18/16 00:00 10/15/16 12:25 KENAN VERDE Oct 15, 2016 19:51
[2016-10-15 20:00] VITALS: BP 120/55
--- NOTE | 2016-10-15 21:18 | Consultation ---
DATE OF CONSULTATION: CONSULTING PHYSICIAN: Nathalie Leyva M.D. ATTENDING PHYSICIAN: Vasiliy Carrillo M.D. CHIEF COMPLAINT: Irritation and itching in the groin crease area. HISTORY OF PRESENT ILLNESS: This is a 76-year-old woman, who was admitted to the hospital on 10/05/2016 with altered mental status and loss of consciousness resulting in facial fracture and also a right shoulder fracture. The patient has been admitted for workup and she complains of some irritation in the groin crease area. However, the patient is a poor historian and is unable to give a complete history or description of what is bothering her. PAST MEDICAL HISTORY: Hypothyroidism and recent mental status disorder with loss of consciousness resulting in multiple injuries. MEDICATIONS: 1. Vancomycin. 2. Morphine. 3. Magnesium hydroxide. 4. MiraLAX. 5. Zofran. 6. Colace. 7. Aspirin. 8. Tylenol. 9. [place]. ALLERGIES: No known drug allergies. REVIEW OF SYSTEMS: The patient has no other complaints. PHYSICAL EXAMINATION: GENERAL: The patient is a well-developed, well-nourished, no acute distress, and alert. CARDIOVASCULAR: Regular rate and rhythm. LUNGS: Clear to auscultation bilaterally. ABDOMEN: Slightly large and distended, but soft and nontender. EXTREMITIES: Normal range of motion. SKIN: In the groin area, the patient does have some sweating. I did not visualized any rashes or erythema, however, the patient was lying in bed with her heels, resting on the foot of the bed. I did not see any pressure ulcers or any open wounds from her placing pressure on her heel. ASSESSMENT: 1. The patient with altered mental status with recent facial and shoulder fracture. 2. With complaints of irritation in the groin area. PLAN: Although I do not visualize any rashes in her groin crease area, I recommend cleansing the area with normal saline, pat dry, apply menthol/zinc oxide or zinc oxide fungal t.i.d. and p.r.n. Also the patient was resting her heels on the plastic portion of the bed. Because of her altered mental status, she is at risk for developing a pressure ulcer of her heels. Then I recommend, the patient consider to monitor her for this placement. Please float the heels while in bed with a soft pillow under the calf. Nathalie Leyva M.D. DR: FAUSTION JOB#: [id number] CC:
--- NOTE | 2016-10-16 01:28 | Consultation ---
DATE OF CONSULTATION: HISTORY OF PRESENT ILLNESS: This is a 76-year-old female with a history of multiple medical problems including hypothyroidism, depression, shoulder fracture, and hypokalemia. Patient admitted to the hospital due to altered mental status. The patient also had a head trauma. Psychiatry was consulted as the patient lives alone. She has a diagnosis of dementia and per primary team the patient is not to live alone or care for herself, therefore she needs to be transferred SN. The patient has been uncooperative and is not willing to follow the doctors recommendation. Apparently before the admission, the patient was found by paramedics lying in front of lawn and she was confused, disoriented, and able to provide any information. She was brought into the emergency room. It appears that the patient has had a head trauma, as well as right arm fracture. During the evaluation, the patient endorses cognitive impairment. She is unable to understand process, communicate, or appreciate the information is given to her, in regards to the importance of going to the [facility] at this time and follow the primary doctor's recommendation. She also endorses impairment of cognition specifically memory. Her mood was irritable and she was anxious during the evaluation. PAST PSYCHIATRIC HISTORY: She has a diagnosis of depression and anxiety disorder, has been treated with medications beside SSRI in the past. PAST MEDICAL HISTORY: Significant for hypothyroidism and sepsis. ALLERGIES: No known drug allergies. SUBSTANCE ABUSE HISTORY: No history of illicit drug use or alcohol. SOCIAL HISTORY: The patient lives alone at home. MENTAL STATUS EXAMINATION: The patient was calm and somewhat uncooperative with examination. However, this could be due to her cognitive impairment. She had at times she was were eye contact. Her speech was within normal rate and frequency and volume. Her mood was slightly irritable. Affect was constricted. Congruent with mood and appropriate affect. Thought process was concrete. Thought content, no suicidal or homicidal ideation. The patient was alert oriented to time, place, and situation. Insight and judgment impaired. ASSESSMENT: [place] I: Major depressive disorder by history. Altered mental status. History of the head trauma, which is improved. AXIS II: Deferred. AXIS III: Head trauma. AXIS IV: Moderate. AXIS V: 41. PLAN: The patient lacks capacity to leave against medical advice. She also lacks capacity to go back home. At this time, the patient would benefit from going to the [facility]. She lacks capacity to make decisions in regards to her displacement. Soheila Mcneal M.D. DR: Edgard JOB#: [id number] CC:
[2016-10-16 04:00] VITALS: BP 148/70
[2016-10-16] MEDS: Morphine Sulfate 4mg/ml Inj IVP PRN ×3 (04:24→20:58)
[2016-10-16 06:49] LABS: EOSINOPHILS % (AUTO) 1.2 % (0.0-3.0); LYMPHOCYTES % (AUTO) 21.8 % (20.0-45.0); MEAN CORPUSCULAR HEMOGLOBIN 24.7 PG (27.0-31.0); MEAN CORPUSCULAR HGB CONC 30.5 G/DL (32.0-36.0); MEAN CORPUSCULAR VOLUME 81 FL (80-99); MEAN PLATELET VOLUME 5.1 FL (6.5-10.1); MONOCYTES % (AUTO) 5.5 % (1.0-10.0); NEUTROPHILS % (AUTO) 70.5 % (45.0-75.0); PLATELET COUNT 456 K/UL (150-450); RED BLOOD COUNT 3.91 M/UL (4.20-5.40); RED CELL DISTRIBUTION WIDTH 18.6 % (11.6-14.8)
[2016-10-16 06:56] LABS: ANION GAP 15 (5-15); CALCIUM 9.6 mg/dL (8.6-10.2); CARBON DIOXIDE 24 mEQ/L (20-30); CHLORIDE 101 mEQ/L (98-107); CREATININE 0.6 mg/dL (0.5-0.9); HEMOLYSIS 0; POTASSIUM 3.9 mEQ/L (3.4-4.9); SODIUM 140 mEQ/L (135-145)
[2016-10-16 08:00] VITALS: BP 116/65
[2016-10-16] MEDS: Docusate 100mg tablet ORAL SCH ×2 (08:41→21:00)
[2016-10-16] MEDS: Heparin 5000 units/ml inj SUBQ SCH ×2 (08:41→21:02)
--- NOTE | 2016-10-16 09:22 | Infectious Diseases Prog Note ---
Assessment/Plan Assessment/Plan A: The patient is a 76-year-old female with Sepsis SP Bacteremia CoNS 10/09 ( also strep V ; contaminant ) TTE : on 10/05/2016 difficult study , pt refused ALAN, rule out possibility of vegetation Hx of recent hospitalization ( probable due to IV access ) Hypothyroidism CT Abd : possible colitis ( not indication clinically ) Rt shoulder fracture Right orbital floor fracture Sp syncopal episode. PLAN: DC IV vancomycin d# / and monitor pt off of AB Rx ( 10/08 SP cefepime ) Monitor CBC. Monitor BMP. Subjective Constitutional: Denies: anorexia, chills, drenching sweats, fatigue, fever, no symptoms, other Allergies: Coded Allergies: No Known Allergies (Unverified , 10/05/16) Objective Vital Signs Last 24 Hour Vital Signs Date Time Temp Pulse Resp B/P Pulse Ox O2 Delivery O2 Flow Rate FiO2 10/16/16 08:00 96.6 75 18 116/65 100 Nasal Cannula 1.0 10/16/16 04:54 97.0 10/16/16 04:00 98.6 101 21 148/70 99 Nasal Cannula 2.0 10/15/16 20:00 98.1 70 18 120/55 98 Room Air 10/15/16 16:00 97.0 82 18 116/65 98 Room Air 10/15/16 12:00 97.2 86 18 143/76 98 Room Air Height (Feet): 5 Height (Inches): 3.00 Weight (Pounds): 150 HEENT: atraumatic Respiratory/Chest: normal breath sounds Cardiovascular: regular rhythm Abdomen: non distended Laboratory Tests Test 10/16/16 05:30 White Blood Count 7.0 K/UL (4.8-10.8) Red Blood Count 3.91 M/UL (4.20-5.40) L Hemoglobin 9.6 G/DL (12.0-16.0) L Hematocrit 31.7 % (37.0-47.0) L Mean Corpuscular Volume 81 FL (80-99) Mean Corpuscular Hemoglobin 24.7 PG (27.0-31.0) L Mean Corpuscular Hemoglobin Concent 30.5 G/DL (32.0-36.0) L Red Cell Distribution Width 18.6 % (11.6-14.8) H Platelet Count 456 K/UL (150-450) H Mean Platelet Volume 5.1 FL (6.5-10.1) L Neutrophils (%) (Auto) 70.5 % (45.0-75.0) Lymphocytes (%) (Auto) 21.8 % (20.0-45.0) Monocytes (%) (Auto) 5.5 % (1.0-10.0) Eosinophils (%) (Auto) 1.2 % (0.0-3.0) Basophils (%) (Auto) 1.0 % (0.0-2.0) Sodium Level 140 mEQ/L (135-145) Potassium Level 3.9 mEQ/L (3.4-4.9) Chloride Level 101 mEQ/L (98-107) Carbon Dioxide Level 24 mEQ/L (20-30) Anion Gap 15 (5-15) Blood Urea Nitrogen 8 mg/dL (7-23) Creatinine 0.6 mg/dL (0.5-0.9) Estimat Glomerular Filtration Rate mL/min (>60) Glucose Level 106 mg/dL (74-106) Calcium Level 9.6 mg/dL (8.6-10.2) Current Medications Medications (Trade) Dose Ordered Sig/Lorna Route PRN Reason Start Time Stop Time Status Last Admin Dose Admin Acetaminophen (Tylenol) 650 mg Q4H PRN ORAL Mild Pain (Pain Scale 1-3) 10/08/16 17:00 11/07/16 16:59 10/09/16 20:22 Dextrose (Dextrose 50%) STAT PRN IV Hypoglycemia 10/08/16 16:30 11/07/16 16:29 Docusate Sodium (Colace) 100 mg EVERY 12 HOURS ORAL 10/08/16 21:00 11/07/16 20:59 10/15/16 20:11 Heparin Sodium (Porcine) (Heparin 5000 units/ml) 5,000 units EVERY 12 HOURS SUBQ 10/08/16 21:00 11/07/16 20:59 10/16/16 08:41 Magnesium Hydroxide (Mom) 30 ml HSPRN PRN ORAL Constipation 10/09/16 15:30 11/08/16 15:29 Morphine Sulfate (Morphine Sulfate) 2 mg Q4H PRN IVP Moderate Pain (Pain Scale 4-6) 10/14/16 17:00 10/21/16 16:59 Morphine Sulfate (Morphine Sulfate) 4 mg Q4H PRN IVP Severe Pain (Pain Scale 7-10) 10/14/16 15:30 10/21/16 15:29 10/16/16 08:39 Nitroglycerin (Ntg) 0.4 mg Q5MIN X 3 DOSES PRN SL Prn Chest Pain 10/08/16 16:30 11/07/16 16:29 Ondansetron HCl (Zofran) 4 mg Q6H PRN IVP Nausea & Vomiting 10/08/16 21:30 11/07/16 21:29 Polyethylene Glycol (Miralax) 17 gm DAILYPRN PRN ORAL Constipation 10/09/16 15:30 11/08/16 15:29 10/11/16 21:09 Vancomycin HCl 1 ea 1 ea DAILY PRN MISC RX TO DOSE 10/08/16 16:30 11/07/16 16:29 Vancomycin HCl/ Dextrose (Vancomycin/D5W) 275 ml @ 183.708 mls/hr Q12HR@0000,1200 IVPB 10/13/16 00:00 10/18/16 00:00 10/15/16 23:55 JOSE MANUEL VAZQUEZ M.D. Oct 16, 2016 09:22
[2016-10-16 12:00] VITALS: BP 110/66
--- NOTE | 2016-10-16 14:45 | Physician Query ---
PLEASE COMPLETE DOCUMENT BEFORE SIGNING Dear Dr. Josafat Berry Date: October Legal Executive Assistant/CDS Name: Jovan Souza CDS Legal Executive Assistant / CDS Exercise your independent professional judgment when responding to query. Question asked do not imply a particular answer is desired/expected. Clinical Documentation States: "Altered Mental Status / Confusion / ALOC" documented in ED Provider's notes and consultation notes. Patient herself is confused and cannot provide full history Clinical Findings Show:s CT head does not show any acute hemorrhage however there is a inferior wall fracture patient does maintain full range of motion of the eyes Hypokalemia Please indicate the nature and chronicity of the condition below: [x] Metabolic Encephalopathy [] Toxic Encephalopathy [] Toxic - Metabolic Encephalopathy [] Progressive Encephalopathy [] Encephalopathy, Other [] Other: [] Not Applicable Severity [x] Acute [] Chronic [] Acute on Chronic [] Unable to determine Condition Present on Admission: [x] Yes [] No []Clinically Undeterminable Please also document in your Progress Notes and/or Discharge Summary and indicate if the condition was present on admission. Josafat Berry MD Date/Time [facility]
[2016-10-16 16:00] VITALS: BP 113/64
[2016-10-16] MEDS: Morphine Sulfate 2mg/ml Inj IVP PRN (16:17)
[2016-10-16 20:00] VITALS: BP 122/84
--- NOTE | 2016-10-16 22:31 | Pulmonology Progress Note ---
Assessment/Plan Problems: (1) Shoulder fracture, right (2) Orbital wall fracture (3) Sepsis (4) Orbital floor (blow-out) closed fracture Assessment/Plan pt/ot dc iv fluid blanco culture adjust iv antibiotics 2d Echo, results pending Subjective ROS Limited/Unobtainable: No Constitutional: Reports: fatigue Neurologic: Reports: weakness Musculoskeletal: Reports: pain, stiffness, swelling Allergies: Coded Allergies: No Known Allergies (Unverified , 10/05/16) Objective Last 24 Hour Vital Signs Date Time Temp Pulse Resp B/P Pulse Ox O2 Delivery O2 Flow Rate FiO2 10/16/16 20:00 97.3 84 20 122/84 97 Room Air 10/16/16 16:00 96.2 80 17 113/64 98 Room Air 10/16/16 12:00 97.6 73 16 110/66 94 Room Air 10/16/16 08:00 96.6 75 18 116/65 100 Nasal Cannula 1.0 10/16/16 04:54 97.0 10/16/16 04:00 98.6 101 21 148/70 99 Nasal Cannula 2.0 Intake and Output 10/15/16 10/16/16 19:00 07:00 Intake Total 600 ml 635.000 ml Balance 600 ml 635.000 ml Intake Oral 600 ml 360 ml IV Total 275.000 ml # Voids 5 2 General Appearance: no acute distress HEENT: normocephalic, atraumatic, PERRL Respiratory/Chest: chest wall non-tender, lungs clear, normal breath sounds Breasts: no masses Cardiovascular: normal peripheral pulses, normal rate, regular rhythm, no JVD Abdomen: normal bowel sounds, soft, non tender, no organomegaly Genitourinary: normal external genitalia Extremities: no cyanosis Skin: no rash 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, no motor/sensory deficits Laboratory Tests 10/16/16 05:30: White Blood Count 7.0, Red Blood Count 3.91L, Hemoglobin 9.6L, Hematocrit 31.7L , Mean Corpuscular Volume 81, Mean Corpuscular Hemoglobin 24.7L, Mean Corpuscular Hemoglobin Concent 30.5L, Red Cell Distribution Width 18.6H, Platelet Count 456H, Mean Platelet Volume 5.1L, Neutrophils (%) (Auto) 70.5, Lymphocytes (%) (Auto) 21.8, Monocytes (%) (Auto) 5.5, Eosinophils (%) (Auto) 1.2, Basophils (%) (Auto) 1.0, Sodium Level 140, Potassium Level 3.9, Chloride Level 101, Carbon Dioxide Level 24, Anion Gap 15, Blood Urea Nitrogen 8, Creatinine 0.6, Estimat Glomerular Filtration Rate , Glucose Level 106, Calcium Level 9.6 Current Medications Medications (Trade) Dose Ordered Sig/Lorna Route PRN Reason Start Time Stop Time Status Last Admin Dose Admin Acetaminophen (Tylenol) 650 mg Q4H PRN ORAL Mild Pain (Pain Scale 1-3) 10/08/16 17:00 11/07/16 16:59 10/09/16 20:22 Dextrose (Dextrose 50%) STAT PRN IV Hypoglycemia 10/08/16 16:30 11/07/16 16:29 Docusate Sodium (Colace) 100 mg EVERY 12 HOURS ORAL 10/08/16 21:00 11/07/16 20:59 10/16/16 21:00 Escitalopram Oxalate (Lexapro) 10 mg DAILY ORAL 10/17/16 09:00 11/16/16 08:59 UNV Heparin Sodium (Porcine) (Heparin 5000 units/ml) 5,000 units EVERY 12 HOURS SUBQ 10/08/16 21:00 11/07/16 20:59 10/16/16 21:02 Magnesium Hydroxide (Mom) 30 ml HSPRN PRN ORAL Constipation 10/09/16 15:30 11/08/16 15:29 Morphine Sulfate (Morphine Sulfate) 2 mg Q4H PRN IVP Moderate Pain (Pain Scale 4-6) 10/14/16 17:00 10/21/16 16:59 10/16/16 16:17 Morphine Sulfate (Morphine Sulfate) 4 mg Q4H PRN IVP Severe Pain (Pain Scale 7-10) 10/14/16 15:30 10/21/16 15:29 10/16/16 20:58 Nitroglycerin (Ntg) 0.4 mg Q5MIN X 3 DOSES PRN SL Prn Chest Pain 10/08/16 16:30 11/07/16 16:29 Ondansetron HCl (Zofran) 4 mg Q6H PRN IVP Nausea & Vomiting 10/08/16 21:30 11/07/16 21:29 Polyethylene Glycol (Miralax) 17 gm DAILYPRN PRN ORAL Constipation 10/09/16 15:30 11/08/16 15:29 10/11/16 21:09 KENAN VERDE Oct 16, 2016 22:31
--- NOTE | 2016-10-16 23:58 | Progress Note ---
DATE: 10/16/2016 SUBJECTIVE: The patient was found in her bed and there she . She was yelling. Once I entered the room, however, she is able to be engaged in a simple conversation. She is unable to understand process, communicate, or understand. The information is given in regards to her medical condition placement and she is also easily agitated. MENTAL STATUS EXAMINATION: The patient is alert and oriented times self and place. Mood is irritable and anxious. Affect is constricted. Congruent mood. Thought process is concrete. Thought content is positive for delusions. Insight and judgment is impaired. ASSESSMENT: 1. Psychotic disorder. 2. Cognitive impairment. PLAN: The patient is on Lexapro 10 mg by mouth every morning. Soheila Mcneal M.D. DR: MITZI JOB#: [id number] CC:
[2016-10-17] VITALS: BP 138/74
[2016-10-17] MEDS: Morphine Sulfate 4mg/ml Inj IVP PRN ×2 (03:04→14:20)
[2016-10-17 04:00] VITALS: BP 140/82
[2016-10-17 08:00] VITALS: BP 106/60
[2016-10-17] MEDS: Docusate 100mg tablet ORAL SCH (09:22)
[2016-10-17] MEDS: Heparin 5000 units/ml inj SUBQ SCH (09:23)
--- NOTE | 2016-10-17 10:15 | Internal Med Progress Note ---
Subjective Date of Service: Oct 16, 2016 Physician Name Ganesh Matias Attending Physician Josafat Berry MD Current Medications Medications (Trade) Dose Ordered Sig/Lorna Route PRN Reason Start Time Stop Time Status Last Admin Dose Admin Acetaminophen (Tylenol) 650 mg Q4H PRN ORAL Mild Pain (Pain Scale 1-3) 10/08/16 17:00 11/07/16 16:59 10/09/16 20:22 Dextrose (Dextrose 50%) STAT PRN IV Hypoglycemia 10/08/16 16:30 11/07/16 16:29 Docusate Sodium (Colace) 100 mg EVERY 12 HOURS ORAL 10/08/16 21:00 11/07/16 20:59 10/17/16 09:22 Escitalopram Oxalate (Lexapro) 10 mg DAILY ORAL 10/17/16 09:00 11/16/16 08:59 10/17/16 09:22 Heparin Sodium (Porcine) (Heparin 5000 units/ml) 5,000 units EVERY 12 HOURS SUBQ 10/08/16 21:00 11/07/16 20:59 10/17/16 09:23 Magnesium Hydroxide (Mom) 30 ml HSPRN PRN ORAL Constipation 10/09/16 15:30 11/08/16 15:29 Morphine Sulfate (Morphine Sulfate) 2 mg Q4H PRN IVP Moderate Pain (Pain Scale 4-6) 10/14/16 17:00 10/21/16 16:59 10/16/16 16:17 Morphine Sulfate (Morphine Sulfate) 4 mg Q4H PRN IVP Severe Pain (Pain Scale 7-10) 10/14/16 15:30 10/21/16 15:29 10/17/16 03:04 Nitroglycerin (Ntg) 0.4 mg Q5MIN X 3 DOSES PRN SL Prn Chest Pain 10/08/16 16:30 11/07/16 16:29 Ondansetron HCl (Zofran) 4 mg Q6H PRN IVP Nausea & Vomiting 10/08/16 21:30 11/07/16 21:29 Polyethylene Glycol (Miralax) 17 gm DAILYPRN PRN ORAL Constipation 10/09/16 15:30 11/08/16 15:29 10/11/16 21:09 Allergies: Coded Allergies: No Known Allergies (Unverified , 10/05/16) ROS Limited/Unobtainable: No Constitutional: Reports: no symptoms HEENT: Reports: no symptoms Cardiovascular: Reports: no symptoms Respiratory: Reports: no symptoms Gastrointestinal/Abdominal: Reports: no symptoms Genitourinary: Reports: no symptoms Neurologic/Psychiatric: Reports: no symptoms Subjective Late entry: computer down 10/16/16. 76 YO F admitted with syncope. Now right humeral neck fracture and right orbital floor fracture. C/O right hand pain. Await transesophageal echocardiogram. Await psych eval. Cover for Int Med-Dr Berry. Objective Last Vital Signs Date Time Temp Pulse Resp B/P Pulse Ox O2 Delivery O2 Flow Rate FiO2 10/17/16 04:00 98.4 74 20 140/82 97 Room Air 10/16/16 08:00 1.0 Intake and Output 10/16/16 10/17/16 18:59 06:59 # Voids 1 Objective General Appearance: WD/WN, no apparent distress, alert EENT: PERRL/EOMI, normal ENT inspection, other - contusion right eye Neck: non-tender, normal alignment, supple Cardiovascular: normal peripheral pulses, normal rate, regular rhythm Respiratory/Chest: chest wall non-tender, lungs clear, normal breath sounds Abdomen: normal bowel sounds, non tender, soft, no organomegaly, no mass Extremities: normal range of motion 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 See neurology consult. (2) Hypothyroidism Assessment & Plan: Cont synthroid. (3) Humeral surgical neck fracture Assessment & Plan: Non-surgical. See ortho note. (4) Orbital floor (blow-out) closed fracture Assessment & Plan: Await plastic surgery consult. (5) Syncope Assessment & Plan: See cardiology and neurology consults. MRI brain= Nondiagnostic. R/O acute SC vs CVA (6) Sepsis Assessment & Plan: Coag neg staph. See ID consult-Dr Stubbs. Continue vanco D# 12/15 Await transesophageal echocardiogram. (7) Non compliance with medical treatment Assessment & Plan: Await psych consult. Status: stable Assessment/Plan Discharge planning: Patient refused [facility] fac. GANESH MATIAS Oct 17, 2016 10:15
[2016-10-17 12:00] VITALS: BP 111/61
[2016-10-17] MEDS ORDERED: ACETAMINOPHEN325 M1 ORAL (13:22)
[2016-10-17] MEDS ORDERED: LEXAPRO10 MG ORAL (13:22)
--- NOTE | 2016-10-17 13:26 | Internal Med Progress Note ---
Subjective Date of Service: Oct 17, 2016 Physician Name Ganesh Matias Attending Physician Josafat Berry MD Current Medications Medications (Trade) Dose Ordered Sig/Lorna Route PRN Reason Start Time Stop Time Status Last Admin Dose Admin Acetaminophen (Tylenol) 650 mg Q4H PRN ORAL Mild Pain (Pain Scale 1-3) 10/08/16 17:00 11/07/16 16:59 10/09/16 20:22 Dextrose (Dextrose 50%) STAT PRN IV Hypoglycemia 10/08/16 16:30 11/07/16 16:29 Docusate Sodium (Colace) 100 mg EVERY 12 HOURS ORAL 10/08/16 21:00 11/07/16 20:59 10/17/16 09:22 Escitalopram Oxalate (Lexapro) 10 mg DAILY ORAL 10/17/16 09:00 11/16/16 08:59 10/17/16 09:22 Heparin Sodium (Porcine) (Heparin 5000 units/ml) 5,000 units EVERY 12 HOURS SUBQ 10/08/16 21:00 11/07/16 20:59 10/17/16 09:23 Magnesium Hydroxide (Mom) 30 ml HSPRN PRN ORAL Constipation 10/09/16 15:30 11/08/16 15:29 Morphine Sulfate (Morphine Sulfate) 2 mg Q4H PRN IVP Moderate Pain (Pain Scale 4-6) 10/14/16 17:00 10/21/16 16:59 10/16/16 16:17 Morphine Sulfate (Morphine Sulfate) 4 mg Q4H PRN IVP Severe Pain (Pain Scale 7-10) 10/14/16 15:30 10/21/16 15:29 10/17/16 03:04 Nitroglycerin (Ntg) 0.4 mg Q5MIN X 3 DOSES PRN SL Prn Chest Pain 10/08/16 16:30 11/07/16 16:29 Ondansetron HCl (Zofran) 4 mg Q6H PRN IVP Nausea & Vomiting 10/08/16 21:30 11/07/16 21:29 Polyethylene Glycol (Miralax) 17 gm DAILYPRN PRN ORAL Constipation 10/09/16 15:30 11/08/16 15:29 10/11/16 21:09 Allergies: Coded Allergies: No Known Allergies (Unverified , 10/05/16) ROS Limited/Unobtainable: No Constitutional: Reports: no symptoms HEENT: Reports: no symptoms Cardiovascular: Reports: no symptoms Respiratory: Reports: no symptoms Gastrointestinal/Abdominal: Reports: no symptoms Genitourinary: Reports: no symptoms Neurologic/Psychiatric: Reports: no symptoms Subjective Late entry: computer down 10/16/16. 76 YO F admitted with syncope. Now right humeral neck fracture and right orbital floor fracture. C/O right hand pain. Cover for Int Med-Dr Berry. Await transfer to [facility] nursing fac Objective Last Vital Signs Date Time Temp Pulse Resp B/P Pulse Ox O2 Delivery O2 Flow Rate FiO2 10/17/16 12:00 98.2 70 24 111/61 96 Room Air 10/16/16 08:00 1.0 Intake and Output 10/16/16 10/17/16 18:59 06:59 # Voids 1 Objective General Appearance: WD/WN, no apparent distress, alert EENT: PERRL/EOMI, normal ENT inspection, other - contusion right eye Neck: non-tender, normal alignment, supple Cardiovascular: normal peripheral pulses, normal rate, regular rhythm Respiratory/Chest: chest wall non-tender, lungs clear, normal breath sounds Abdomen: normal bowel sounds, non tender, soft, no organomegaly, no mass Extremities: normal range of motion 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 See neurology consult. (2) Hypothyroidism Assessment & Plan: Cont synthroid. (3) Humeral surgical neck fracture Assessment & Plan: Non-surgical. See ortho note. (4) Orbital floor (blow-out) closed fracture Assessment & Plan: Await plastic surgery consult. (5) Syncope Assessment & Plan: See cardiology and neurology consults. MRI brain= Nondiagnostic. R/O acute MA vs CVA (6) Sepsis Assessment & Plan: Coag neg staph. See ID consult-Dr Stubbs. Continue vanco per ID (7) Non compliance with medical treatment Assessment & Plan: Await psych consult. Status: stable Assessment/Plan Discharge planning: [facility] nursing fac. GANESH MATIAS Oct 17, 2016 13:26
[2016-10-17] MEDS: Morphine Sulfate 2mg/ml Inj IVP PRN (14:19)
--- NOTE | 2016-10-17 21:18 | Progress Note ---
SUBJECTIVE: The patient was calm during the evaluation, however, still has episodes of agitation and yelling. The patient endorses impairment of concentration, memory, and attention, not engaged during the evaluation. The patient is unable to understand, communicate, or appreciate. Information was given to her in regards to her medical condition or placement. MENTAL STATUS EXAMINATION: The patient is alert and oriented to self and place. Mood was neutral during the evaluation. Affect is flat. Congruent with mood and appropriate thought process. There is a paucity of thought content. Thought content, positive for delusion. Insight and judgment impaired. ASSESSMENT: Dementia with behavioral issues. PLAN: 1. The patient will be continued on current medication. 2. The patient lacks capacity to make decisions in regards to her medical condition and evaluation. Soheila Mcneal M.D. DR: Edgard JOB#: [id number] CC:
--- NOTE | 2016-10-18 15:26 | Discharge Summary ---
Discharge Summary Hospital Course Date of Admission Oct 05, 2016 at 12:56 Date of Discharge Oct 17, 2016 at 16:50 Admitting Diagnosis SYNCOPE HPI Iris Montalvo is a 76 year old female who was admitted on Oct 05, 2016 at 12:56 for Syncope Hospital Course job #[id number] Discharge Discharge Disposition Patient was discharged to snf Discharge Diagnoses: Jesika Emerson NP Oct 18, 2016 15:26
--- NOTE | 2016-10-19 05:38 | Discharge Summary 2 SIG ---
DATE OF ADMISSION: 10/05/2016 DATE OF DISCHARGE: 10/17/2016 CONSULTANTS: 1. Amando Street M.D. 2. Soheila Mcneal M.D. 3. Nathalie Sharpe M.D. 4. Nic Stubbs M.D. 5. Gerson Guerrier M.D. 6. Prince Benitez M.D. 7. Vasiliy Carrillo M.D. BRIEF HOSPITAL COURSE: The patient is a 76-year-old female with past medical history significant for hypothyroidism, who presented to the hospital after she was found down on the neighbor's lawn. The patient was confused and cannot remember what is going on. She had paperwork from recent hospitalization at [facility] and was treated for bronchitis. No antibiotics given, most likely viral. She was discharged home after she had influenza A and B, blood test done, and advised to follow up with her primary doctor within three days. The patient is a poor historian. On evaluation at ED, x-ray of the shoulder showed findings of acute fracture. A CT of the head did not show any acute hemorrhage. Blood work showed hypokalemia and dehydration. A CT of the head showed no acute bleed, with right inferior orbital wall fracture. The patient was admitted to telemetry for syncopal episode with altered mental status and was given aggressive hydration and pain medication. Dr. Benitez was consulted. X-ray of the shoulder and humerus were reviewed. There is acute right humeral fracture that is comminuted, minimally displaced, and no evidence of dislocation. The patient would not need any surgical intervention, advised to remain in the sling, and with physical therapy. Advised to follow up with Orthopedic as an outpatient for a serial x-ray. Dr. Guerrier was consulted. The patient was started on aspirin 81 mg daily. Carotid duplex showed irregular minimal plaques in both carotids. Vertebral arteries are patent without evidence of stenosis or steal. MRI of the brain done and was nondiagnostic. Dr. Street was consulted. Echocardiogram showed left ventricular ejection fraction of 60% to 65% with normal left ventricular function and normal intracardiac filling pressure. Syncope was assessed to be secondary to hypovolemia. Troponins has been negative. Dr. Stubbs was consulted for antibiotic management as blood culture was growing gram-positive cocci and coagulase-negative Staph in all four bottles. A CAT scan of the abdomen showed possible right colon colitis with no abscess. The patient was given IV vancomycin. The patient was recommended to undergo a ALAN to rule out endocarditis, however the patient refused. Dr. Mcneal was consulted as the patient has diagnosis of dementia. The patient not able to live alone or care for herself and needed to be transferred to SNF. However, the patient was uncooperative and not willing to follow doctor's recommendation. Psychiatric evaluation was done and was assessed that the patient lacks capacity to leave against medical advice as well as lacks capacity to go back home. Recommended that the patient would benefit from going to a usp, and lacks capacity to make decisions in regard to her placement. She was continued on Lexapro 10 mg q.a.m. She was also evaluated by Dr. Sharpe secondary to irritation in the groin area and recommended cleansing with NS and zinc oxide t.i.d. and p.r.n. The patient was secured and the patient was transferred to [facility]. FINAL DIAGNOSES: 1. Acute metabolic encephalopathy. 2. Acute humeral fracture. 3. Sepsis with coagulase-negative Staphylococcus. 4. Syncope secondary to dehydration. 5. Orbital floor closed fracture secondary to fall. 6. Hypothyroidism. 7. Dementia with behavioral issues. 8. Hypokalemia. Ganesh Oliveros M.D. I have been assigned to dictate discharge summary on this account and I was not involved in the patient's management. Jesika Emerson N.P. DR: TREVOR JOB#: [id number] CC: RAE
== END 2016-10-17 16:50 | DRG 871 ==
LOC: EDBD 11:41 → EMR 12:50 → 2E 12:56 → EDBEDREQ 15:47 → 4W 10-08 16:08
DX: A41.1 Sepsis due to other specified staphylococcus (principal); G93.41 Metabolic encephalopathy; F03.91 Unspecified dementia, unspecified severity, with behavioral disturbance; E86.0 Dehydration; S02.31XA Fracture of orbital floor, right side, initial encounter for closed fracture; R55 Syncope and collapse; S42.251A Displaced fracture of greater tuberosity of right humerus, initial encounter for closed fracture; E03.9 Hypothyroidism, unspecified; D64.9 Anemia, unspecified; F32.9 Major depressive disorder, single episode, unspecified; E87.6 Hypokalemia; W19.XXXA Unspecified fall, initial encounter; Z60.2 Problems related to living alone; I70.90 Unspecified atherosclerosis; E16.2 Hypoglycemia, unspecified; Z91.19 Patient's noncompliance with other medical treatment and regimen
CPT/HCPCS: 36415; 70450; 70551; 71010; 74177; 80048; 80053; 80202; 81003; 82550; 82553; 83605; 83690; 83735; 83880; 84100; 84484; 85025; 85610; 85730; 87040; 87181; 93005; 93306; 93880; J8499

== ENCOUNTER 2016-10-29 09:49 | Inpatient (IN) | payer MEDICARE ==
[~2016-10-29] VITALS: Ht 165.1 cm; Wt 73.0 kg
[~2016-10-29 09:49] MED LIST: ACETAMINOPHEN325 M1 ORAL; IBUPROFEN600 MG ORAL; LEVOTHYROXINE88 MCG ORAL; LEXAPRO10 MG ORAL; NORCO 5-325 TA1 EACH ORAL; VITAMIN D22000 UNIT PO
[2016-10-29] MEDS ORDERED: Morphine Sulfate 4mg/ml Inj IVP ONE (10:00)
[2016-10-29] MEDS ORDERED: Tubing IV Cassette IV ONE (10:03)
[2016-10-29 10:30] VITALS: BP 122/67
--- NOTE | 2016-10-29 10:44 | Emergency Room Report ---
History of Present Illness General Chief Complaint: Pain Source: Patient, Medical Record Present Illness HPI Patient has a history of right shoulder fracture. Patient currently is staying at a care home. Patient presents emergency department today complaining of abdominal discomfort nausea and diarrhea. Symptoms noted to be moderate to severe. Patient has a fever chest pain or shortness of breath. Patient states that she's not eating well. Patient denies any rectal bleeding. No other complaints are noted. Symptoms noted to be severe.No other modifying factors. No other associated signs and symptoms. No other complaints were noted. Allergies: Coded Allergies: No Known Allergies (Unverified , 10/05/16) Patient History Past Medical History: other - dementia, depression Past Surgical History: none Pertinent Family History: none Social History: Denies: alcohol use, drug use, smoking Social History Narrative states that Roel Willis, primary care physician Dr. Berry Reviewed Nursing Documentation: PMH: Agreed, PSxH: Agreed Nursing Documentation-PMH History Of Psychiatric Problem: Yes - AMS; major depressive disorder; demential with behvioral disturbance Review of Systems All Other Systems: negative except mentioned in HPI Physical Exam Vital Signs Date Time Temp Pulse Resp B/P Pulse Ox O2 Delivery O2 Flow Rate FiO2 10/29/16 09:50 98.1 71 18 118/83 98 Room Air Sp02 EP Interpretation: reviewed, normal General Appearance: normal inspection, well appearing, no apparent distress, alert Head: normocephalic, atraumatic Eyes: bilateral eye normal inspection ENT: normal ENT inspection, hearing grossly normal, normal voice Neck: normal inspection, full range of motion, supple, no bony tend Respiratory: normal inspection, lungs clear, normal breath sounds, no respiratory distress, no retraction, no wheezing Cardiovascular #1: regular rate, rhythm, no edema Gastrointestinal: normal inspection, normal bowel sounds, soft, no guarding, no hernia, other - tender epigastrium Genitourinary: no CVA tenderness Musculoskeletal: normal inspection, back normal, normal range of motion Neurologic: normal inspection, alert, responsive, speech normal Psychiatric: normal inspection, judgement/insight normal, depressed affect, anxious Skin: normal inspection, normal color, no rash Medical Decision Making Diagnostic Impression: Primary Impression: Abdominal pain Additional Impressions: Enteritis Diarrhea Acute shoulder pain ER Course Patient presents emergency department today complaining of abdominal pain and shoulder pain. Differential considerations include acute coronary syndrome, gastritis, gastritis, enteritis, electrolyte abnormality just to name a few. Given the severity of the patient's presentation I felt this is a highly complex patient. This patient required extensive workup. Patient laboratory workup was negative. Patient's CT scan of the abdomen and pelvis shows evidence of enteritis. Chest x-ray was also normal. Patient was still complaining of developing after pain medications and fluid. Therefore felt the patient can admission to the hospital. Case was discussed with Dr. Josafat Berry. Patient will be placed on observation status area Labs Test 10/29/16 10:10 10/29/16 11:15 White Blood Count 8.8 K/UL (4.8-10.8) Red Blood Count 4.24 M/UL (4.20-5.40) Hemoglobin 10.1 G/DL (12.0-16.0) Hematocrit 34.4 % (37.0-47.0) Mean Corpuscular Volume 81 FL (80-99) Mean Corpuscular Hemoglobin 23.8 PG (27.0-31.0) Mean Corpuscular Hemoglobin Concent 29.4 G/DL (32.0-36.0) Red Cell Distribution Width 17.7 % (11.6-14.8) Platelet Count 436 K/UL (150-450) Mean Platelet Volume 5.7 FL (6.5-10.1) Neutrophils (%) (Auto) 69.8 % (45.0-75.0) Lymphocytes (%) (Auto) 23.2 % (20.0-45.0) Monocytes (%) (Auto) 5.9 % (1.0-10.0) Eosinophils (%) (Auto) 0.4 % (0.0-3.0) Basophils (%) (Auto) 0.7 % (0.0-2.0) Prothrombin Time 9.9 SEC (9.30-11.50) Prothromb Time International Ratio 1.0 (0.9-1.1) Activated Partial Thromboplast Time 24 SEC (23-33) Sodium Level 141 mEQ/L (135-145) Potassium Level 4.0 mEQ/L (3.4-4.9) Chloride Level 99 mEQ/L (98-107) Carbon Dioxide Level 24 mEQ/L (20-30) Anion Gap 18 (5-15) Blood Urea Nitrogen 12 mg/dL (7-23) Creatinine 0.7 mg/dL (0.5-0.9) Estimat Glomerular Filtration Rate mL/min (>60) Glucose Level 102 mg/dL (74-106) Calcium Level 9.3 mg/dL (8.6-10.2) Total Bilirubin 0.3 mg/dL (0.0-1.2) Aspartate Amino Transf (AST/SGOT) 18 U/L (5-40) Alanine Aminotransferase (ALT/SGPT) 19 U/L (3-33) Alkaline Phosphatase 168 U/L (35-104) Total Creatine Kinase 69 U/L (26-140) Creatine Kinase MB < 1.5 ng/mL (< 3.8) Creatine Kinase MB Relative Index Troponin I < 0.30 ng/mL (<=0.30) Total Protein 7.2 g/dL (6.6-8.7) Albumin 4.1 g/dL (3.5-5.2) Globulin 3.1 g/dL Albumin/Globulin Ratio 1.3 (1.0-2.7) Lipase 32 U/L (< 60) Urine Color Pale yellow Urine Appearance Slightly cloudy Urine pH 8 (4.5-8.0) Urine Specific [place] 1.010 (1.005-1.035) Urine Protein Negative (NEGATIVE) Urine Glucose (UA) Negative (NEGATIVE) Urine Ketones Negative (NEGATIVE) Urine Occult Blood Negative (NEGATIVE) Urine Nitrite Negative (NEGATIVE) Urine Bilirubin Negative (NEGATIVE) Urine Urobilinogen Normal MG/DL (0.0-1.0) Urine Leukocyte Esterase 1+ (NEGATIVE) Urine RBC 0-2 /HPF (0 - 2) Urine WBC 2-4 /HPF (0 - 2) Urine Squamous Epithelial Cells Few /LPF (NONE/OCC) Urine Amorphous Sediment Few /LPF (NONE) Urine Bacteria Few /HPF (NONE) EKG Diagnostic Results Rate: normal Rhythm: NSR ST Segments: no acute changes Rhythm Strip Diag. Results EP Interpretation: yes Rate: 78 Rhythm: NSR, no ectopy, other - ccasional PVCs Chest X-Ray Diagnostic Results EP Interpretation: Yes Findings: no consolidation, no effusion, no pneumothorax, no acute cardiopulmonary disease Number of Views: 1 Last Vital Signs Date Time Temp Pulse Resp B/P Pulse Ox O2 Delivery O2 Flow Rate FiO2 10/29/16 09:50 98.1 71 18 118/83 98 Room Air Status: improved Disposition: PLACE IN OBSERVATION Condition: Serious Referrals: Josafat Berry MD (PCP) CHRISTY AMBROCIO M.D. Oct 29, 2016 10:44
[2016-10-29] MEDS ORDERED: ATIVAN0.5 MG ORAL (10:51)
[2016-10-29 11:07] LABS: TROPONIN I < 0.30 ng/mL (<=0.30)
[2016-10-29 11:09] LABS: BASOPHILS % (AUTO) 0.7 % (0.0-2.0); EOSINOPHILS % (AUTO) 0.4 % (0.0-3.0); LYMPHOCYTES % (AUTO) 23.2 % (20.0-45.0); MEAN CORPUSCULAR HEMOGLOBIN 23.8 PG (27.0-31.0); MEAN CORPUSCULAR HGB CONC 29.4 G/DL (32.0-36.0); MEAN CORPUSCULAR VOLUME 81 FL (80-99); MEAN PLATELET VOLUME 5.7 FL (6.5-10.1); MONOCYTES % (AUTO) 5.9 % (1.0-10.0); NEUTROPHILS % (AUTO) 69.8 % (45.0-75.0); PLATELET COUNT 436 K/UL (150-450); RED BLOOD COUNT 4.24 M/UL (4.20-5.40); RED CELL DISTRIBUTION WIDTH 17.7 % (11.6-14.8); WHITE BLOOD COUNT 8.8 K/UL (4.8-10.8)
[2016-10-29 11:11] LABS: ALANINE AMINOTRANSFERASE 19 U/L (3-33); ALBUMIN/GLOBULIN RATIO 1.3 (1.0-2.7); ANION GAP 18 (5-15); ASPARTATE AMINO TRANSFERASE 18 U/L (5-40); CALCIUM 9.3 mg/dL (8.6-10.2); CARBON DIOXIDE 24 mEQ/L (20-30); CHLORIDE 99 mEQ/L (98-107); CREATININE 0.7 mg/dL (0.5-0.9); HEMOLYSIS 4; LIPASE 32 U/L (< 60); SODIUM 141 mEQ/L (135-145); TOTAL PROTEIN 7.2 g/dL (6.6-8.7)
[2016-10-29 11:17] LABS: PROTHROMBIN TIME 9.9 SEC (9.30-11.50)
[2016-10-29 11:21] LABS: CKMB < 1.5 ng/mL (< 3.8)
[2016-10-29 11:38] LABS: APPEARANCE,URINE SLIGHTLY CLOUDY; KETONES,URINE NEGATIVE (NEGATIVE); LEUKOCYTE ESTERASE ,URINE 1+ (NEGATIVE); NITRITE,URINE NEGATIVE (NEGATIVE); PH,URINE 8 (4.5-8.0); PROTEIN,URINE NEGATIVE (NEGATIVE); UROBILINOGEN,URINE NORMAL MG/DL (0.0-1.0)
[2016-10-29 11:48] LABS: AMORPHOUS SEDIMENT,UR FEW /LPF; BACTERIA,URINE FEW /HPF; RBC,URINE 0-2 /HPF (0 - 2); SQUAMOUS EPITHELIAL CELL,UR FEW /LPF (NONE/OCC)
[2016-10-29 12:00] VITALS: BP 117/60
--- NOTE | 2016-10-29 12:10 | Diagnostic Imaging Report ---
Clinical Indication: Abdomen pain Technique: No oral contrast utilized, per emergency room physician request IV administration nonionic contrast. Venous phase spiral acquisition obtained through the abdomen and pelvis. Multiplanar reconstructions were generated. Total dose length product 96 mGycm. CTDIvol(s) 19 mGy. Dose reduction achieved using automated exposure control Comparison: 10/05/2016 Findings: The appendix is equivocally demonstrated. No definite findings to suggest acute appendicitis. There is colonic diverticulosis. Fluid is seen within the ascending and proximal transverse colon. Small bowel loops are also prominent and fluid-filled. Distal esophagus, stomach, duodenum are unremarkable. No free or loculated intraperitoneal air or fluid is evident. The liver again demonstrates a subcentimeter low-attenuation lesion in segment 7 which is too small to characterize. There are cholecystectomy clips. No biliary ductal dilatation. The pancreas, spleen, adrenals, kidneys are unremarkable. No mesenteric or retroperitoneal mass or adenopathy. No pelvic mass or adenopathy. Uterus and adnexal structures are unremarkable. The heart is enlarged. Interstitial disease is seen at both lung bases. This appears similar to the previous exam. The bones demonstrate mild degenerative spondylosis changes. A sclerotic lesion is seen in the anterior acetabulum, unchanged, probably a bone island. Is again demonstrated a compression fracture deformity of the L2 vertebral body, as well as of the T12 vertebral body. There is mild superior endplate depression of L4. Impression: Prominent fluid-filled distal small bowel and proximal colon. Findings may represent mild enteritis changes Diverticulosis. No evidence of diverticulitis Cardiomegaly Interstitial disease at both lung bases, similar to prior study. May indicate interstitial edema, interstitial fibrosis changes, or combination of both L2 and T12 vertebral body compression fracture deformities, as well as mild superior endplate depression of L4, acuity indeterminate, unchanged since 10/05/2016.. Subcentimeter low-attenuation liver lesion, too small to characterize, most likely benign simple cysts or bile hamartomas. No further followup necessary Other findings as noted, including evidence of prior cholecystectomy, anterior acetabular probable bone island The CT scanner at [facility] is accredited by the [employer] and the scans are performed using protocols designed to limit radiation exposure to as low as reasonably achievable to attain images of sufficient resolution adequate for diagnostic evaluation.
--- NOTE | 2016-10-29 12:11 | Diagnostic Imaging Report ---
Indication: PAIN Technique: One view of the chest Comparison: 10/05/2016 Findings: Heart size upper limits normal. Aorta is tortuous and ectatic. No acute infiltrates, effusions, or congestion. Right humeral fracture is less well-visualized than previously. Impression: No acute process. Findings as noted
[2016-10-29] MEDS ORDERED: LEXAPRO10 MG ORAL (13:44)
[2016-10-29] MEDS ORDERED: VITAMIN D400 INTLU ORAL (13:44)
[2016-10-29] MEDS ORDERED: Morphine Sulfate 2mg/ml Inj IVP PRN (15:00)
[2016-10-29 16:07] VITALS: BP 141/97
--- NOTE | 2016-10-29 16:11 | GI Initial Consult Note ---
Dorothea Vincent N.P. 10/29/16 1611: History of Present Illness General Date patient seen: Oct 29, 2016 Time patient seen: 16:02 Reason for Hospitalization: Pain Referring physician: KIP ROMERO Reason for Consultation: ABDOMINAL PAIN Present Illness HPI Patient has a history of right shoulder fracture. Patient currently is staying at a [facility]. Patient presents emergency department today complaining of abdominal discomfort nausea and diarrhea. Symptoms noted to be moderate to severe. Patient has a fever chest pain or shortness of breath. Patient states that she's not eating well. Patient denies any rectal bleeding. No other complaints are noted. Symptoms noted to be severe.No other modifying factors. No other associated signs and symptoms. No other complaints were noted. GI CONSULT: HPI as noted above. GI consulted for enteritis as shown on APCT. Pt seen on floor, awake A&O NAD c/o of tender epigastric pain with no active s/ sx of N/V. Denies hematemesis or coffee grounds. Pt currently c/o of hunger. She presents today with anemia, diverticulosis, and elevated alkaline phosphatase. The patient states she's had a recent upper endoscopy within the past 2 years where she was dx with an ulcer and gastritis. She denies any history of colonoscopy and refuses to have one done at this time. Troponin and lipase levels unremarkable. Service Date: 10/29/16 Procedure: CT Abdomen Pelvis w/Contrast Clinical Indication: Abdomen pain Impression: Prominent fluid-filled distal small bowel and proximal colon. Findings may represent mild enteritis changes Diverticulosis. No evidence of diverticulitis Cardiomegaly Interstitial disease at both lung bases, similar to prior study. May indicate interstitial edema, interstitial fibrosis changes, or combination of both L2 and T12 vertebral body compression fracture deformities, as well as mild superior endplate depression of L4, acuity indeterminate, unchanged since 10/05/2016.. Subcentimeter low-attenuation liver lesion, too small to characterize, most likely benign simple cysts or bile hamartomas. No further followup necessary Other findings as noted, including evidence of prior cholecystectomy, anterior acetabular probable bone island Home Meds Active Scripts Acetaminophen* (ACETAMINOPHEN 325MG TABLET*) 325 Mg Tablet, 650 MG ORAL Q4H Y for 30 Days, TAB Prov:CAYETANO MATIAS 10/17/16 Reported Medications Escitalopram Oxalate* (LEXAPRO*) 10 Mg Tablet, 10 MG ORAL DAILY, TAB 10/29/16 Lorazepam* (ATIVAN*) 0.5 Mg Tablet, 0.5 MG ORAL EVERY 6 HOURS Y for Agitation, TAB 10/29/16 Ergocalciferol (Vitamin D2) (VITAMIN D2) 2,000 Unit Tablet, 33628 UNIT PO QWEEK , TAB 10/05/16 Levothyroxine Sodium* (LEVOTHYROXINE SODIUM*) 88 Mcg Tablet, 88 MCG ORAL DAILY, TAB Take in the morning on an empty stomach, at least 30 minutes before food. 10/05/16 Ibuprofen* (MOTRIN*) 600 Mg Tablet, 600 MG ORAL Q6H Y for For Pain, #30 TAB 10/05/16 Hydrocodone Bit/Acetaminophen 5-325* (NORCO 5-325*) 1 Each Tablet, 1 TAB ORAL Q6H Y for For Pain, #10 TAB 0 Refills 10/05/16 Med list reviewed/reconciled: Yes Allergies: Coded Allergies: No Known Allergies (Unverified , 10/05/16) Patient History Limited by: medical condition History Provided By: Patient PMH Narrative Past Medical History: other - dementia, depression Past Surgical History: none Pertinent Family History: none Social History: Denies: alcohol use, drug use, smoking Social History Narrative states that Roel Willis, primary care physician Dr. Romero Social History: Denies: alcohol use, drug use, other, smoking Review of Systems All Other Systems: negative except mentioned in HPI Physical Exam Vital Signs Date Time Temp Pulse Resp B/P Pulse Ox O2 Delivery O2 Flow Rate FiO2 10/29/16 09:50 98.1 71 18 118/83 98 Room Air Sp02 EP Interpretation: reviewed Labs Laboratory Tests Test 10/29/16 10:10 10/29/16 11:15 White Blood Count 8.8 K/UL (4.8-10.8) Red Blood Count 4.24 M/UL (4.20-5.40) Hemoglobin 10.1 G/DL (12.0-16.0) L Hematocrit 34.4 % (37.0-47.0) L Mean Corpuscular Volume 81 FL (80-99) Mean Corpuscular Hemoglobin 23.8 PG (27.0-31.0) L Mean Corpuscular Hemoglobin Concent 29.4 G/DL (32.0-36.0) L Red Cell Distribution Width 17.7 % (11.6-14.8) H Platelet Count 436 K/UL (150-450) Mean Platelet Volume 5.7 FL (6.5-10.1) L Neutrophils (%) (Auto) 69.8 % (45.0-75.0) Lymphocytes (%) (Auto) 23.2 % (20.0-45.0) Monocytes (%) (Auto) 5.9 % (1.0-10.0) Eosinophils (%) (Auto) 0.4 % (0.0-3.0) Basophils (%) (Auto) 0.7 % (0.0-2.0) Prothrombin Time 9.9 SEC (9.30-11.50) Prothromb Time International Ratio 1.0 (0.9-1.1) Activated Partial Thromboplast Time 24 SEC (23-33) Sodium Level 141 mEQ/L (135-145) Potassium Level 4.0 mEQ/L (3.4-4.9) Chloride Level 99 mEQ/L (98-107) Carbon Dioxide Level 24 mEQ/L (20-30) Anion Gap 18 (5-15) H Blood Urea Nitrogen 12 mg/dL (7-23) Creatinine 0.7 mg/dL (0.5-0.9) Estimat Glomerular Filtration Rate mL/min (>60) Glucose Level 102 mg/dL (74-106) Calcium Level 9.3 mg/dL (8.6-10.2) Total Bilirubin 0.3 mg/dL (0.0-1.2) Aspartate Amino Transf (AST/SGOT) 18 U/L (5-40) Alanine Aminotransferase (ALT/SGPT) 19 U/L (3-33) Alkaline Phosphatase 168 U/L (35-104) H Total Creatine Kinase 69 U/L (26-140) Creatine Kinase MB < 1.5 ng/mL (< 3.8) Creatine Kinase MB Relative Index Troponin I < 0.30 ng/mL (<=0.30) Total Protein 7.2 g/dL (6.6-8.7) Albumin 4.1 g/dL (3.5-5.2) Globulin 3.1 g/dL Albumin/Globulin Ratio 1.3 (1.0-2.7) Lipase 32 U/L (< 60) Urine Color Pale yellow Urine Appearance Slightly cloudy Urine pH 8 (4.5-8.0) Urine Specific [place] 1.010 (1.005-1.035) Urine Protein Negative (NEGATIVE) Urine Glucose (UA) Negative (NEGATIVE) Urine Ketones Negative (NEGATIVE) Urine Occult Blood Negative (NEGATIVE) Urine Nitrite Negative (NEGATIVE) Urine Bilirubin Negative (NEGATIVE) Urine Urobilinogen Normal MG/DL (0.0-1.0) Urine Leukocyte Esterase 1+ (NEGATIVE) H Urine RBC 0-2 /HPF (0 - 2) Urine WBC 2-4 /HPF (0 - 2) Urine Squamous Epithelial Cells Few /LPF (NONE/OCC) Urine Amorphous Sediment Few /LPF (NONE) H Urine Bacteria Few /HPF (NONE) General Appearance: well appearing, no apparent distress, alert Head: normocephalic EENT: normal ENT inspection Neck: supple Respiratory: normal breath sounds, no respiratory distress Cardiovascular: normal rate Gastrointestinal: normal inspection, non tender Rectal: deferred Musculoskeletal: back normal Neurologic: alert, responsive Psychiatric: normal inspection, judgement/insight normal Skin: normal inspection, normal color, no rash Lymphatic: normal inspection, no adenopathy Current Medications Current Medications Medications (Trade) Dose Ordered Sig/Lorna Route PRN Reason Start Time Stop Time Status Last Admin Dose Admin Acetaminophen/ Hydrocodone Bitart 1 tab 1 tab Q4H PRN ORAL Moderate Pain (Pain Scale 4-6) 10/29/16 15:00 11/05/16 14:59 Ciprofloxacin (Cipro 400mg/ 200ml premix bag) 200 ml @ 200 mls/hr Q12HR@0600,1800 IV 10/29/16 18:00 11/05/16 17:59 Dextrose (Dextrose 50%) STAT PRN IV Hypoglycemia 10/29/16 15:00 11/28/16 14:59 Metronidazole 100 ml @ 100 mls/hr Q8HR@0200,1000,1800 IVPB 10/29/16 18:00 11/05/16 17:59 Morphine Sulfate (Morphine Sulfate) 2 mg Q4H PRN IVP Severe Pain (Pain Scale 7-10) 10/29/16 15:00 11/05/16 14:59 Ondansetron HCl (Zofran) 4 mg Q4H PRN IVP Nausea & Vomiting 10/29/16 15:00 11/28/16 14:59 GI: Plan Problems: (1) Abdominal pain (2) Enteritis (3) Diarrhea (4) Depression (5) Hypothyroidism Plan troponin negative lipase negative APCT review >> mild enteritis symptomatic treatment at this time zofran prn IV hydration and electrolyte replacement ok for FLD, adv as tolerated anemia work up OB stool uncollected monitor H&H, transfuse prn H2 pain mgmt patient will benefit from a colonoscopy, can be done outpatient Discussed with Dr. Morales. Thank you for referring this patient, we will follow. YASMANI MORALES 10/30/16 1556: History of Present Illness General Reason for Hospitalization: Pain Present Illness Home Meds Active Scripts Acetaminophen* (ACETAMINOPHEN 325MG TABLET*) 325 Mg Tablet, 650 MG ORAL Q4H Y for 30 Days, TAB Prov:FLORENCIOCAYETANO 10/17/16 Reported Medications Escitalopram Oxalate* (LEXAPRO*) 10 Mg Tablet, 10 MG ORAL DAILY, TAB 10/29/16 Lorazepam* (ATIVAN*) 0.5 Mg Tablet, 0.5 MG ORAL EVERY 6 HOURS Y for Agitation, TAB 10/29/16 Ergocalciferol (Vitamin D2) (VITAMIN D2) 2,000 Unit Tablet, 24831 UNIT PO QWEEK , TAB 10/05/16 Levothyroxine Sodium* (LEVOTHYROXINE SODIUM*) 88 Mcg Tablet, 88 MCG ORAL DAILY, TAB Take in the morning on an empty stomach, at least 30 minutes before food. 10/05/16 Ibuprofen* (MOTRIN*) 600 Mg Tablet, 600 MG ORAL Q6H Y for For Pain, #30 TAB 10/05/16 Hydrocodone Bit/Acetaminophen 5-325* (NORCO 5-325*) 1 Each Tablet, 1 TAB ORAL Q6H Y for For Pain, #10 TAB 0 Refills 10/05/16 Allergies: Coded Allergies: No Known Allergies (Unverified , 10/05/16) GI: Plan Plan The patient was seen and examined at bedside and all new and available data was reviewed in the patients chart. I agree with the above findings, impression and plan. (Patient seen earlier today. Signature stamp does not reflect patient encounter time.). -Yasmani [facility] Aniket N.P. Oct 29, 2016 16:11 YASMANI MORALES Oct 30, 2016 15:56
[2016-10-29] MEDS ORDERED: metroNIDAZOLE 500mg 100 ML IVPB SCH (18:00)
[2016-10-29] MEDS: Famotidine 20 MG/ 2ML VIAL IVP SCH (18:04)
[2016-10-29] MEDS: Norco 5mg/325mg tab ORAL PRN (18:10)
--- NOTE | 2016-10-29 18:40 | History & Physical ---
History and Physical History & Physicial Dictated for Int Med-Dr Berry no. [id number]. CAYETANO MATIAS Oct 29, 2016 18:39
[2016-10-29 20:00] VITALS: BP 145/79
--- NOTE | 2016-10-29 22:37 | History and Physical Report ---
DATE OF ADMISSION: 10/29/2016 CHIEF COMPLAINT: The patient is a 76-year-old female, presents with complaint of abdominal pain. HISTORY OF PRESENT ILLNESS: The patient was admitted to [facility] from 10/05/2016 to 10/17/2016. The patient was admitted for syncopal episode. The patient was found to have nondisplaced humerus surgical neck fracture of the right shoulder. The patient was also found to have an orbital floor closed fracture of the right eye. The patient was discharged to [facility]. According to staff at [facility], the patient began to experience abdominal pain. The patient also had nausea and diarrhea. The patient had not been eating well. The patient was evaluated in [place] emergency room. The patient was admitted for abdominal pain to rule out gastritis versus pancreatitis. PAST MEDICAL HISTORY: Significant for, 1. Right humerus fracture as above. 2. Right orbital floor fracture as above. 3. Hypothyroidism. PAST SURGICAL HISTORY: The patient denies. CURRENT MEDICATIONS: 1. Tylenol 650 mg one tablet p.o. q.4 hours. 2. Ativan 0.5 mg one tablet p.o. every 6 hours p.r.n. 3. Levoxyl 0.088 mcg one tablet p.o. daily. 4. Levoxyl 0.088 mg one tablet p.o. daily. 5. Lexapro 10 mg one tablet p.o. daily. 6. Ibuprofen 600 mg one tablet p.o. every 6 hours p.r.n. 7. [place] 5/325 two tablets p.o. every 6 hours p.r.n. 8. Vitamin D3 50,000 units p.o. q. weekly on Saturday. ALLERGIES: No known drug allergies. SOCIAL HISTORY: The patient lives at [facility]. The patient denies tobacco or alcohol use. REVIEW OF SYSTEMS: Constitutional: The patient denies weight loss or weight gain. The patient denies fevers or chills. HEENT: The patient denies ear or throat pain. Cardiovascular: The patient denies palpitations or chest pain. Chest: The patient denies wheeze or shortness of breath. Abdomen: The patient complains of epigastric pain as above. The patient complains of nausea and vomiting. The patient complains of diarrhea. The patient denies constipation. Genitourinary: The patient denies dysuria or increased frequency of urination. Neuromuscular: The patient denies seizures or generalized weakness. PHYSICAL EXAMINATION: VITAL SIGNS: Temperature 98.0 degrees, respirations 18, pulse 89, and blood pressure 117/60. GENERAL: The patient is a well-developed and well-nourished female, in no apparent distress. HEENT: Eyes, pupils are equal and responsive to light and accommodation. Extraocular movements are intact. NECK: Supple without lymphadenopathy. CHEST: Lungs are clear to auscultation bilaterally without wheezes or rales. CARDIOVASCULAR: Regular rate. S1 and S2 normal without murmurs, rubs, or gallops. ABDOMEN: Soft and nondistended. Positive bowel sounds. There is tenderness to palpation in the epigastric region. There is no rebound or guarding. EXTREMITIES: Negative for clubbing, cyanosis, or edema. The right arm is in an elbow sling. NEUROMUSCULAR: Cranial nerves II through XII are grossly intact without focal deficits. Motor strength is 5/5 bilaterally. Deep tendon reflexes are 2+ plantar. LABORATORY STUDIES: WBC 8.8, hemoglobin 10.1, hematocrit 34.4, and platelets 436,000. Sodium 141, potassium 4.0, chloride 99, CO2 24, BUN 12, creatinine 0.7, and glucose 102. Troponin less than 0.3. Alkaline phosphatase 168 (elevated). Liver function tests are within normal limits. Lipase was normal at 32. A CT scan of the abdomen and pelvis, prominent fluid-filled distal small bowel proximal colon. This was consistent with enteritis. This also presence of a diverticulosis without diverticulitis. ASSESSMENT: This is a 76-year-old female, 1. Abdominal pain. 2. Enteritis. 3. Surgical neck fracture of the right humerus. 4. Right orbital floor fracture (closed). 5. Hypothyroidism. TREATMENT: 1. Abdominal pain/enteritis. A Gastroenterology consultation has been obtained with Dr. Yasmani Griffin. The patient has been placed empirically on intravenous ciprofloxacin and Flagyl. We will follow recommendations of Gastroenterology. Enteritis may bacterial versus viral. A Clostridium difficile toxin is pending. 2. Surgical neck fracture of the right humerus. The patient is currently in a sling. 3. Right orbital floor fracture. 4. Hypothyroidism. Continue Levoxyl as above. Ganesh Oliveros M.D. DR: Bharathi JOB#: [id number] CC:
[2016-10-30] MEDS ORDERED: metroNIDAZOLE 500mg 100 ML IVPB SCH (04:00)
[2016-10-30] MEDS: Norco 5mg/325mg tab ORAL PRN ×2 (04:52→13:15)
[2016-10-30 07:14] LABS: ALANINE AMINOTRANSFERASE 17 U/L (3-33); ALBUMIN/GLOBULIN RATIO 1.1 (1.0-2.7); ANION GAP 15 (5-15); ASPARTATE AMINO TRANSFERASE 16 U/L (5-40); CALCIUM 9.1 mg/dL (8.6-10.2); CARBON DIOXIDE 25 mEQ/L (20-30); CHLORIDE 102 mEQ/L (98-107); CREATININE 0.8 mg/dL (0.5-0.9); MAGNESIUM 2.3 mg/dL (1.7-2.5); PHOSPHORUS 3.5 mg/dL (2.5-4.8); POTASSIUM 4.5 mEQ/L (3.4-4.9); SODIUM 142 mEQ/L (135-145); TOTAL PROTEIN 6.9 g/dL (6.6-8.7)
[2016-10-30 07:19] LABS: FERRITIN 89 ng/mL (13-150)
[2016-10-30 07:26] LABS: EOSINOPHILS % (AUTO) 0.5 % (0.0-3.0); LYMPHOCYTES % (AUTO) 24.2 % (20.0-45.0); MEAN CORPUSCULAR HEMOGLOBIN 24.4 PG (27.0-31.0); MEAN CORPUSCULAR HGB CONC 29.8 G/DL (32.0-36.0); MEAN CORPUSCULAR VOLUME 82 FL (80-99); MONOCYTES % (AUTO) 6.3 % (1.0-10.0); PLATELET COUNT 386 K/UL (150-450); RED BLOOD COUNT 3.89 M/UL (4.20-5.40); RED CELL DISTRIBUTION WIDTH 18.5 % (11.6-14.8); WHITE BLOOD COUNT 8.4 K/UL (4.8-10.8)
[2016-10-30 07:34] LABS: HEMOLYSIS 3; IRON 26 ug/dL (37-145); TOTAL IRON BINDING CAPACITY 261 ug/dL (250-400)
[2016-10-30 08:35] VITALS: BP 102/82
--- NOTE | 2016-10-30 10:26 | GI Progress Note ---
Assessment/Plan Problems: (1) Abdominal pain ICD Codes: R10.9 - Unspecified abdominal pain SNOMED: 47627504, 316312240 (2) Depression ICD Codes: F32.9 - Major depressive disorder, single episode, unspecified SNOMED: 68366954 (3) Enteritis ICD Codes: K52.9 - Noninfective gastroenteritis and colitis, unspecified SNOMED: 33588775, 819366267 (4) Diarrhea ICD Codes: R19.7 - Diarrhea, unspecified SNOMED: 55028222, 329975205 (5) Non compliance with medical treatment ICD Codes: Z91.19 - Patient's noncompliance with other medical treatment and regimen SNOMED: 7954715 (6) Altered mental status ICD Codes: R41.82 - Altered mental status, unspecified SNOMED: 061251312 (7) Hypothyroidism ICD Codes: E03.9 - Hypothyroidism, unspecified SNOMED: 51822535 (8) Iron deficiency ICD Codes: E61.1 - Iron deficiency SNOMED: 29263125 Status: unchanged Status Narrative Discussed with Dr. Griffin. Assessment/Plan troponin negative lipase negative APCT review >> mild enteritis iron deficiency >> venofer x 1 elevated CEA 12.9 symptomatic treatment at this time zofran prn IV hydration and electrolyte replacement ok for FLD, adv as tolerated anemia work up OB stool uncollected monitor H&H, transfuse prn H2 pain mgmt patient will benefit from a colonoscopy given anemia and elevated CEA, can be done outpatient >> refused. Subjective Subjective refusing care Objective Last 24 Hour Vital Signs Date Time Temp Pulse Resp B/P Pulse Ox O2 Delivery O2 Flow Rate FiO2 10/30/16 08:35 97.4 74 19 102/82 95 Room Air 10/29/16 20:00 98.1 72 16 145/79 93 Room Air 10/29/16 19:09 98.3 10/29/16 16:07 98.3 80 19 141/97 97 Room Air 10/29/16 15:26 98.0 89 18 117/60 95 Room Air 10/29/16 12:00 89 18 117/60 95 Room Air 10/29/16 10:40 98.0 10/29/16 10:30 80 20 122/67 95 Room Air Intake and Output 10/29/16 10/30/16 19:00 07:00 Intake Total 1100 ml 400 ml Balance 1100 ml 400 ml Intake Oral 600 ml IV Total 500 ml 400 ml # Voids 1 3 # Bowel Movements 1 Laboratory Tests Test 10/29/16 11:15 10/30/16 05:25 Urine Color Pale yellow Urine Appearance Slightly cloudy Urine pH 8 (4.5-8.0) Urine Specific [place] 1.010 (1.005-1.035) Urine Protein Negative (NEGATIVE) Urine Glucose (UA) Negative (NEGATIVE) Urine Ketones Negative (NEGATIVE) Urine Occult Blood Negative (NEGATIVE) Urine Nitrite Negative (NEGATIVE) Urine Bilirubin Negative (NEGATIVE) Urine Urobilinogen Normal MG/DL (0.0-1.0) Urine Leukocyte Esterase 1+ (NEGATIVE) H Urine RBC 0-2 /HPF (0 - 2) Urine WBC 2-4 /HPF (0 - 2) Urine Squamous Epithelial Cells Few /LPF (NONE/OCC) Urine Amorphous Sediment Few /LPF (NONE) H Urine Bacteria Few /HPF (NONE) White Blood Count 8.4 K/UL (4.8-10.8) Red Blood Count 3.89 M/UL (4.20-5.40) L Hemoglobin 9.5 G/DL (12.0-16.0) L Hematocrit 31.9 % (37.0-47.0) L Mean Corpuscular Volume 82 FL (80-99) Mean Corpuscular Hemoglobin 24.4 PG (27.0-31.0) L Mean Corpuscular Hemoglobin Concent 29.8 G/DL (32.0-36.0) L Red Cell Distribution Width 18.5 % (11.6-14.8) H Platelet Count 386 K/UL (150-450) Mean Platelet Volume 6.0 FL (6.5-10.1) L Neutrophils (%) (Auto) 68.0 % (45.0-75.0) Lymphocytes (%) (Auto) 24.2 % (20.0-45.0) Monocytes (%) (Auto) 6.3 % (1.0-10.0) Eosinophils (%) (Auto) 0.5 % (0.0-3.0) Basophils (%) (Auto) 1.0 % (0.0-2.0) Reticulocyte Count Pending Prothrombin Time 10.0 SEC (9.30-11.50) Prothromb Time International Ratio 1.0 (0.9-1.1) Activated Partial Thromboplast Time 24 SEC (23-33) Sodium Level 142 mEQ/L (135-145) Potassium Level 4.5 mEQ/L (3.4-4.9) Chloride Level 102 mEQ/L (98-107) Carbon Dioxide Level 25 mEQ/L (20-30) Anion Gap 15 (5-15) Blood Urea Nitrogen 8 mg/dL (7-23) Creatinine 0.8 mg/dL (0.5-0.9) Estimat Glomerular Filtration Rate mL/min (>60) Glucose Level 109 mg/dL (74-106) H Calcium Level 9.1 mg/dL (8.6-10.2) Phosphorus Level 3.5 mg/dL (2.5-4.8) Magnesium Level 2.3 mg/dL (1.7-2.5) Iron Level 26 ug/dL (37-145) L Total Iron Binding Capacity 261 ug/dL (250-400) Percent Iron Saturation 10 % (15-50) L Unsaturated Iron Binding 235 ug/dL (112-346) Ferritin 89 ng/mL (13-150) Total Bilirubin 0.2 mg/dL (0.0-1.2) Aspartate Amino Transf (AST/SGOT) 16 U/L (5-40) Alanine Aminotransferase (ALT/SGPT) 17 U/L (3-33) Alkaline Phosphatase 153 U/L (35-104) H Total Protein 6.9 g/dL (6.6-8.7) Albumin 3.7 g/dL (3.5-5.2) Globulin 3.2 g/dL Albumin/Globulin Ratio 1.1 (1.0-2.7) Carcinoembryonic Antigen 12.7 ng/mL H Vitamin B12 Level 1295 pg/mL (211-946) H Folate Pending Thyroid Stimulating Hormone (TSH) 11.860 uIU/mL (0.300-4.500) Free Thyroxine 1.09 ng/dL (0.86-1.85) Height (Feet): 5 Height (Inches): 5.00 Weight (Pounds): 161 General Appearance: alert, agitated, combative Cardiovascular: normal rate Respiratory/Chest: normal breath sounds, no respiratory distress Abdominal Exam: normal bowel sounds, non tender, soft Extremities: normal range of motion Dorothea Vincent N.P. Oct 30, 2016 10:26
[2016-10-30 11:53] LABS: RETICULOCYTE COUNT 2.7 % (0.0-2.0)
[2016-10-30] MEDS: metroNIDAZOLE 500mg tab ORAL SCH ×2 (13:15→21:30)
[2016-10-30] MEDS ORDERED: Norco 7.5mg/325mg tab ORAL PRN ×2 (15:15→16:30)
[2016-10-30 16:23] VITALS: BP 128/71
[2016-10-30] MEDS ORDERED: Norco 5mg/325mg tab ORAL PRN (16:30)
--- NOTE | 2016-10-30 16:48 | Consultation ---
History of Present Illness General Date patient seen: Oct 30, 2016 Chief Complaint: Pain Referring physician: KIP ROMERO Reason for Consultation: inpatient management Present Illness HPI 76 year old female with hx of recent right shoulder fracture, DM, HTN, staying at a [facility] presented to emergency department today complaining of abdominal discomfort nausea and diarrhea. Patient had a fever chest pain or shortness of breath. Patient states that she's not eating well. Patient denies any rectal bleeding. No other complaints are noted. She is admitted for further work up. Allergies: Coded Allergies: No Known Allergies (Unverified , 10/05/16) Medication History Scheduled Ergocalciferol (Vitamin D2) (Vitamin D2), 50,000 UNIT PO QWEEK, (Reported) Escitalopram Oxalate* (Lexapro*), 10 MG ORAL DAILY, (Reported) Levothyroxine Sodium* (Levothyroxine Sodium*), 88 MCG ORAL DAILY, (Reported) Scheduled PRN Acetaminophen* (Acetaminophen 325MG Tablet*), 650 MG ORAL Q4H PRN Hydrocodone Bit/Acetaminophen 5-325* ([place] 5-325*), 1 TAB ORAL Q6H PRN for For Pain, (Reported) Ibuprofen* (Motrin*), 600 MG ORAL Q6H PRN for For Pain, (Reported) Lorazepam* (Ativan*), 0.5 MG ORAL EVERY 6 HOURS PRN for Agitation, (Reported) Patient History Healthcare decision maker Resuscitation status Full Code Advanced Directive on File unknow Past Medical/Surgical History Past Medical/Surgical History: (1) Depression (2) Hypothyroidism (3) Non compliance with medical treatment (4) Iron deficiency Review of Systems All Other Systems: negative except mentioned in HPI Physical Exam Lines, tubes and drains: peripheral HEENT: normocephalic, atraumatic Neck: non-tender, normal alignment Respiratory/Chest: chest wall non-tender, lungs clear Abdomen: normal bowel sounds, non tender Genitourinary/Rectal: normal genital exam, normal rectal exam Last 24 Hour Vital Signs Date Time Temp Pulse Resp B/P Pulse Ox O2 Delivery O2 Flow Rate FiO2 10/30/16 16:23 72 14 128/71 96 Room Air 10/30/16 14:14 97.4 10/30/16 08:35 97.4 74 19 102/82 95 Room Air 10/29/16 20:00 98.1 72 16 145/79 93 Room Air Intake and Output 10/29/16 10/30/16 19:00 07:00 Intake Total 1100 ml 400 ml Balance 1100 ml 400 ml Intake Oral 600 ml IV Total 500 ml 400 ml # Voids 1 3 # Bowel Movements 1 Laboratory Tests Test 10/30/16 05:25 White Blood Count 8.4 K/UL (4.8-10.8) Red Blood Count 3.89 M/UL (4.20-5.40) L Hemoglobin 9.5 G/DL (12.0-16.0) L Hematocrit 31.9 % (37.0-47.0) L Mean Corpuscular Volume 82 FL (80-99) Mean Corpuscular Hemoglobin 24.4 PG (27.0-31.0) L Mean Corpuscular Hemoglobin Concent 29.8 G/DL (32.0-36.0) L Red Cell Distribution Width 18.5 % (11.6-14.8) H Platelet Count 386 K/UL (150-450) Mean Platelet Volume 6.0 FL (6.5-10.1) L Neutrophils (%) (Auto) 68.0 % (45.0-75.0) Lymphocytes (%) (Auto) 24.2 % (20.0-45.0) Monocytes (%) (Auto) 6.3 % (1.0-10.0) Eosinophils (%) (Auto) 0.5 % (0.0-3.0) Basophils (%) (Auto) 1.0 % (0.0-2.0) Reticulocyte Count 2.7 % (0.0-2.0) H Prothrombin Time 10.0 SEC (9.30-11.50) Prothromb Time International Ratio 1.0 (0.9-1.1) Activated Partial Thromboplast Time 24 SEC (23-33) Sodium Level 142 mEQ/L (135-145) Potassium Level 4.5 mEQ/L (3.4-4.9) Chloride Level 102 mEQ/L (98-107) Carbon Dioxide Level 25 mEQ/L (20-30) Anion Gap 15 (5-15) Blood Urea Nitrogen 8 mg/dL (7-23) Creatinine 0.8 mg/dL (0.5-0.9) Estimat Glomerular Filtration Rate mL/min (>60) Glucose Level 109 mg/dL (74-106) H Calcium Level 9.1 mg/dL (8.6-10.2) Phosphorus Level 3.5 mg/dL (2.5-4.8) Magnesium Level 2.3 mg/dL (1.7-2.5) Iron Level 26 ug/dL (37-145) L Total Iron Binding Capacity 261 ug/dL (250-400) Percent Iron Saturation 10 % (15-50) L Unsaturated Iron Binding 235 ug/dL (112-346) Ferritin 89 ng/mL (13-150) Total Bilirubin 0.2 mg/dL (0.0-1.2) Aspartate Amino Transf (AST/SGOT) 16 U/L (5-40) Alanine Aminotransferase (ALT/SGPT) 17 U/L (3-33) Alkaline Phosphatase 153 U/L (35-104) H Total Protein 6.9 g/dL (6.6-8.7) Albumin 3.7 g/dL (3.5-5.2) Globulin 3.2 g/dL Albumin/Globulin Ratio 1.1 (1.0-2.7) Carcinoembryonic Antigen 12.7 ng/mL H Vitamin B12 Level 1295 pg/mL (211-946) H Folate Pending Thyroid Stimulating Hormone (TSH) 11.860 uIU/mL (0.300-4.500) Free Thyroxine 1.09 ng/dL (0.86-1.85) Height (Feet): 5 Height (Inches): 5.00 Weight (Pounds): 161 Medications Current Medications Medications (Trade) Dose Ordered Sig/Lorna Route PRN Reason Start Time Stop Time Status Last Admin Dose Admin Acetaminophen/ Hydrocodone Bitart ([place] 5/325) 1 tab Q4H PRN ORAL For Pain if able to take orals 10/30/16 16:30 11/06/16 16:29 Acetaminophen/ Hydrocodone Bitart ([place] 7.5/325) 1 ea Q4H PRN ORAL Moderate Breakthru Pain (5-7) 10/30/16 16:30 11/06/16 16:29 Ciprofloxacin (Cipro 500mg tab) 500 mg BID ORAL 10/30/16 18:00 11/06/16 17:59 Dextrose (Dextrose 50%) STAT PRN IV Hypoglycemia 10/29/16 15:00 11/28/16 14:59 Famotidine (Pepcid I.v.) 20 mg QPM IVP 10/29/16 16:30 11/28/16 16:29 10/29/16 18:04 Ferrous Sulfate (Feosol) 325 mg THREE TIMES A DAY ORAL 10/30/16 14:00 11/29/16 13:59 10/30/16 14:00 Fluoxetine HCl (PROzac) 20 mg DAILY ORAL 10/31/16 09:00 11/30/16 08:59 Metronidazole (Flagyl) 500 mg Q8HR ORAL 10/30/16 14:00 11/06/16 13:59 10/30/16 13:15 Morphine Sulfate (Morphine Sulfate) 2 mg Q4H PRN IVP Severe Pain (Pain Scale 7-10) 10/30/16 16:15 11/06/16 16:14 Olanzapine (ZyPREXA) 7.5 mg QHS ORAL 10/30/16 21:00 11/29/16 20:59 Ondansetron HCl (Zofran) 4 mg Q4H PRN IVP Nausea & Vomiting 10/29/16 15:00 11/28/16 14:59 Temazepam (Restoril) 15 mg HSPRN PRN ORAL Insomnia 10/29/16 21:00 11/05/16 20:59 10/29/16 21:08 Assessment/Plan Problem List: (1) Diarrhea ICD Codes: R19.7 - Diarrhea, unspecified SNOMED: 06713688, 294713469 (2) Enteritis ICD Codes: K52.9 - Noninfective gastroenteritis and colitis, unspecified SNOMED: 69274784, 617617487 (3) Depression ICD Codes: F32.9 - Major depressive disorder, single episode, unspecified SNOMED: 44617097 (4) Hypothyroidism ICD Codes: E03.9 - Hypothyroidism, unspecified SNOMED: 59290390 (5) Abdominal pain ICD Codes: R10.9 - Unspecified abdominal pain SNOMED: 00387722, 734893791 Assessment/Plan IV fluids check stool empiric treatment GI evaluation psych to see as well KENAN VERDE Oct 30, 2016 16:48
[2016-10-30] MEDS: Ciprofloxacin 500mg tab ORAL SCH (17:01)
[2016-10-30] MEDS: Morphine Sulfate 2mg/ml Inj IVP PRN ×2 (17:01→21:30)
[2016-10-30] MEDS: Famotidine 20 MG/ 2ML VIAL IVP SCH (17:01)
[2016-10-30] MEDS: LORazepam Inj 2mg/ml 1ml IV PRN (17:53)
--- NOTE | 2016-10-30 19:27 | Internal Med Progress Note ---
Subjective Date of Service: Oct 30, 2016 Physician Name Matias,Cayetano Attending Physician Josafat Berry MD Current Medications Medications (Trade) Dose Ordered Sig/Lorna Route PRN Reason Start Time Stop Time Status Last Admin Dose Admin Acetaminophen/ Hydrocodone Bitart ([place] 5/325) 1 tab Q4H PRN ORAL For Pain if able to take orals 10/30/16 16:30 11/06/16 16:29 Acetaminophen/ Hydrocodone Bitart ([place] 7.5/325) 1 ea Q4H PRN ORAL Moderate Breakthru Pain (5-7) 10/30/16 16:30 11/06/16 16:29 Ciprofloxacin (Cipro 500mg tab) 500 mg BID ORAL 10/30/16 18:00 11/06/16 17:59 10/30/16 17:01 Dextrose (Dextrose 50%) STAT PRN IV Hypoglycemia 10/29/16 15:00 11/28/16 14:59 Famotidine (Pepcid I.v.) 20 mg QPM IVP 10/29/16 16:30 11/28/16 16:29 10/30/16 17:01 Ferrous Sulfate (Feosol) 325 mg THREE TIMES A DAY ORAL 10/30/16 14:00 11/29/16 13:59 10/30/16 17:01 Fluoxetine HCl (PROzac) 20 mg DAILY ORAL 10/31/16 09:00 11/30/16 08:59 Lorazepam (Ativan 2mg/ml 1ml) 0.5 mg Q4H PRN IV For Anxiety 10/30/16 17:45 11/06/16 17:44 10/30/16 17:53 Metronidazole (Flagyl) 500 mg Q8HR ORAL 10/30/16 14:00 11/06/16 13:59 10/30/16 13:15 Morphine Sulfate (Morphine Sulfate) 2 mg Q4H PRN IVP Severe Pain (Pain Scale 7-10) 10/30/16 16:15 11/06/16 16:14 10/30/16 17:01 Olanzapine (ZyPREXA) 7.5 mg QHS ORAL 10/30/16 21:00 11/29/16 20:59 Ondansetron HCl (Zofran) 4 mg Q4H PRN IVP Nausea & Vomiting 10/29/16 15:00 11/28/16 14:59 Temazepam (Restoril) 15 mg HSPRN PRN ORAL Insomnia 10/29/16 21:00 11/05/16 20:59 10/29/16 21:08 Allergies: Coded Allergies: No Known Allergies (Unverified , 10/05/16) ROS Limited/Unobtainable: No Constitutional: Reports: no symptoms HEENT: Reports: no symptoms Cardiovascular: Reports: no symptoms Respiratory: Reports: no symptoms Gastrointestinal/Abdominal: Reports: abdominal pain Genitourinary: Reports: no symptoms Neurologic/Psychiatric: Reports: no symptoms Subjective 76 YO F admitted with abdominal pain. Now enteritis. Cover for Int Shay-Dr Berry. Objective Last Vital Signs Date Time Temp Pulse Resp B/P Pulse Ox O2 Delivery O2 Flow Rate FiO2 10/30/16 17:31 97.4 10/30/16 16:23 72 14 128/71 96 Room Air Laboratory Tests Test 10/30/16 05:25 White Blood Count 8.4 K/UL (4.8-10.8) Red Blood Count 3.89 M/UL (4.20-5.40) L Hemoglobin 9.5 G/DL (12.0-16.0) L Hematocrit 31.9 % (37.0-47.0) L Mean Corpuscular Volume 82 FL (80-99) Mean Corpuscular Hemoglobin 24.4 PG (27.0-31.0) L Mean Corpuscular Hemoglobin Concent 29.8 G/DL (32.0-36.0) L Red Cell Distribution Width 18.5 % (11.6-14.8) H Platelet Count 386 K/UL (150-450) Mean Platelet Volume 6.0 FL (6.5-10.1) L Neutrophils (%) (Auto) 68.0 % (45.0-75.0) Lymphocytes (%) (Auto) 24.2 % (20.0-45.0) Monocytes (%) (Auto) 6.3 % (1.0-10.0) Eosinophils (%) (Auto) 0.5 % (0.0-3.0) Basophils (%) (Auto) 1.0 % (0.0-2.0) Reticulocyte Count 2.7 % (0.0-2.0) H Prothrombin Time 10.0 SEC (9.30-11.50) Prothromb Time International Ratio 1.0 (0.9-1.1) Activated Partial Thromboplast Time 24 SEC (23-33) Sodium Level 142 mEQ/L (135-145) Potassium Level 4.5 mEQ/L (3.4-4.9) Chloride Level 102 mEQ/L (98-107) Carbon Dioxide Level 25 mEQ/L (20-30) Anion Gap 15 (5-15) Blood Urea Nitrogen 8 mg/dL (7-23) Creatinine 0.8 mg/dL (0.5-0.9) Estimat Glomerular Filtration Rate mL/min (>60) Glucose Level 109 mg/dL (74-106) H Calcium Level 9.1 mg/dL (8.6-10.2) Phosphorus Level 3.5 mg/dL (2.5-4.8) Magnesium Level 2.3 mg/dL (1.7-2.5) Iron Level 26 ug/dL (37-145) L Total Iron Binding Capacity 261 ug/dL (250-400) Percent Iron Saturation 10 % (15-50) L Unsaturated Iron Binding 235 ug/dL (112-346) Ferritin 89 ng/mL (13-150) Total Bilirubin 0.2 mg/dL (0.0-1.2) Aspartate Amino Transf (AST/SGOT) 16 U/L (5-40) Alanine Aminotransferase (ALT/SGPT) 17 U/L (3-33) Alkaline Phosphatase 153 U/L (35-104) H Total Protein 6.9 g/dL (6.6-8.7) Albumin 3.7 g/dL (3.5-5.2) Globulin 3.2 g/dL Albumin/Globulin Ratio 1.1 (1.0-2.7) Carcinoembryonic Antigen 12.7 ng/mL H Vitamin B12 Level 1295 pg/mL (211-946) H Folate Pending Thyroid Stimulating Hormone (TSH) 11.860 uIU/mL (0.300-4.500) Free Thyroxine 1.09 ng/dL (0.86-1.85) Intake and Output 10/29/16 10/30/16 19:00 07:00 Intake Total 1100 ml 400 ml Balance 1100 ml 400 ml Intake Oral 600 ml IV Total 500 ml 400 ml # Voids 1 3 # Bowel Movements 1 Objective General: alert, cooperative, no distress, appears stated age Head: normocephalic, without obvious abnormality, atraumatic Eyes: conjunctivae/corneas clear. PERRL, EOM's intact Throat: lips, mucosa, and tongue normal. MMM Neck: supple, symmetrical, trachea midline, and no JVD Lungs: clear to auscultation bilaterally Heart: regular rate and rhythm, S1, S2 normal, no murmur, click, rub or gallop Abdomen: soft, tender to palpation epigastric, non-distended, bowel sounds normal; no masses or organomegaly Extremities: extremities normal, atraumatic, no cyanosis or edema Pulses: 2+ and symmetric Skin: skin color, texture, turgor normal; no rashes or lesions Neurologic: grossly normal, no focal deficits Assessment/Plan Problem List: (1) Enteritis Assessment & Plan: Continue oral cipro and flagyl. (2) Abdominal pain Assessment & Plan: Enteritis. See GI note (3) Humeral surgical neck fracture Assessment & Plan: Right; in arm sling. (4) Orbital floor (blow-out) closed fracture (5) Hypothyroidism (6) Depression Assessment & Plan: Continue zyprexa and prozac. (7) Acute shoulder pain (8) Iron deficiency Assessment & Plan: Cont IV iron. Status: not improved CAYETANO MATIAS Oct 30, 2016 19:26
[2016-10-30] MEDS ORDERED: Iron Sucrose 100 MG in NS 55 ML IVPB ONE (21:00)
--- NOTE | 2016-10-30 22:28 | Consultation ---
DATE OF CONSULTATION: HISTORY OF PRESENT ILLNESS: The patient is my outpatient long term. She is a 76-year-old female with history of cognitive impairment, behavior issues, depression, and anxiety disorder, who has been admitted to the hospital with a chief complaint of abdominal pain. Psychiatry was called. The patient became combative towards the staff and the nurse and the patient during the evaluation is very irritable, angry, presents with paranoid ideation. She also endorses impairment of cognition and memory attention. She is not able to be engaged during the evaluation and/or provide any history. PAST PSYCHIATRIC HISTORY: Diagnosed with depression, anxiety, and cognitive impairment. PAST MEDICAL HISTORY: Right humerus fracture, right orbital floor fracture, and hypothyroidism. MEDICATIONS: In the long term include vitamin D3, [place], ibuprofen, Lexapro, Levoxyl, Ativan, and Tylenol. ALLERGIES: No known drug allergies. SUBSTANCE ABUSE HISTORY: No history of illicit drug use or alcohol. Nonsmoker. SOCIAL HISTORY: The patient lives in [facility]. MENTAL STATUS EXAMINATION: The patient is alert and oriented to time and self. Mood is irritable. Affect is constricted. Congruent mood. Thought process is disorganized. Thought content, positive for delusions. No suicidal or homicidal ideations. Cognition is impaired. ASSESSMENT: AXIS I Major depressive disorder, cognitive impairment. AXIS II Deferred. AXIS III As above. AXIS IV Low. AXIS V Global assessment of functioning is 20. PLAN: 1. The patient will be started on Zyprexa 7.5 mg at bedtime. 2. She will be started on Ativan p.r.n. 3. She will be started on fluoxetine 20 mg in the morning. 4. We will continue to follow and readjust the medication. Soheila Mcneal M.D. DR: Arnav JOB#: [id number] CC:
[2016-10-31] MEDS: LORazepam Inj 2mg/ml 1ml IV PRN ×2 (01:20→17:47)
[2016-10-31 04:00] VITALS: BP 116/61
[2016-10-31] MEDS: metroNIDAZOLE 500mg tab ORAL SCH ×3 (05:48→23:55)
[2016-10-31 08:00] VITALS: BP 130/96
[2016-10-31] MEDS: Ciprofloxacin 500mg tab ORAL SCH ×2 (08:56→17:47)
[2016-10-31 12:00] VITALS: BP 137/77
--- NOTE | 2016-10-31 12:22 | GI Progress Note ---
Assessment/Plan Problems: (1) Abdominal pain ICD Codes: R10.9 - Unspecified abdominal pain SNOMED: 73694099, 516957466 (2) Depression ICD Codes: F32.9 - Major depressive disorder, single episode, unspecified SNOMED: 41634588 (3) Enteritis ICD Codes: K52.9 - Noninfective gastroenteritis and colitis, unspecified SNOMED: 20508602, 513991520 (4) Diarrhea ICD Codes: R19.7 - Diarrhea, unspecified SNOMED: 36976246, 149381516 (5) Non compliance with medical treatment ICD Codes: Z91.19 - Patient's noncompliance with other medical treatment and regimen SNOMED: 7191823 (6) Altered mental status ICD Codes: R41.82 - Altered mental status, unspecified SNOMED: 477646185 (7) Hypothyroidism ICD Codes: E03.9 - Hypothyroidism, unspecified SNOMED: 82005909 (8) Iron deficiency ICD Codes: E61.1 - Iron deficiency SNOMED: 28812698 Status: unchanged Status Narrative Discussed with Dr. Griffin. Assessment/Plan troponin negative lipase negative APCT review >> mild enteritis iron deficiency >> venofer x 1 elevated CEA 12.9 OB stool uncollected symptomatic treatment zofran prn IV hydration and electrolyte replacement adv to cardiac diet monitor H&H, transfuse prn H2 pain mgmt patient will benefit from a colonoscopy given anemia and elevated CEA, can be done outpatient >> refused. Subjective Subjective epigastric pain BUE pain Objective Last 24 Hour Vital Signs Date Time Temp Pulse Resp B/P Pulse Ox O2 Delivery O2 Flow Rate FiO2 10/31/16 08:00 97.7 72 18 130/96 97 Room Air 10/31/16 04:00 97.9 82 16 116/61 99 Room Air 10/30/16 17:31 97.4 10/30/16 16:23 72 14 128/71 96 Room Air 10/30/16 14:14 97.4 Intake and Output 10/30/16 10/31/16 19:00 07:00 Intake Total 1600 ml 360 ml Balance 1600 ml 360 ml Intake Oral 1600 ml 360 ml # Voids 3 2 # Bowel Movements 2 Height (Feet): 5 Height (Inches): 5.00 Weight (Pounds): 161 General Appearance: no apparent distress, alert, agitated - at times Cardiovascular: normal rate Respiratory/Chest: normal breath sounds, no respiratory distress Abdominal Exam: normal bowel sounds, non tender, soft Extremities: normal range of motion Dorothea Vincent N.P. Oct 31, 2016 12:22
[2016-10-31] MEDS: Morphine Sulfate 2mg/ml Inj IVP PRN ×2 (13:26→18:33)
[2016-10-31 16:00] VITALS: BP 118/72
[2016-10-31] MEDS ORDERED: Tubing IV Secondary IV ONE (16:31)
[2016-10-31] MEDS ORDERED: NS 275ml ONE (16:31)
--- NOTE | 2016-10-31 18:28 | Internal Med Progress Note ---
Subjective Date of Service: Oct 31, 2016 Physician Name Matias,Cayetano Attending Physician Josafat Berry MD Current Medications Medications (Trade) Dose Ordered Sig/Lorna Route PRN Reason Start Time Stop Time Status Last Admin Dose Admin Acetaminophen/ Hydrocodone Bitart ([place] 5/325) 1 tab Q4H PRN ORAL For Pain if able to take orals 10/30/16 16:30 11/06/16 16:29 Acetaminophen/ Hydrocodone Bitart ([place] 7.5/325) 1 ea Q4H PRN ORAL Moderate Breakthru Pain (5-7) 10/30/16 16:30 11/06/16 16:29 Ciprofloxacin (Cipro 500mg tab) 500 mg Q12HR ORAL 10/31/16 21:00 11/06/16 17:59 10/31/16 17:47 Dextrose (Dextrose 50%) STAT PRN IV Hypoglycemia 10/29/16 15:00 11/28/16 14:59 Ferrous Sulfate (Feosol) 325 mg THREE TIMES A DAY ORAL 10/30/16 14:00 11/29/16 13:59 10/31/16 17:46 Fluoxetine HCl (PROzac) 20 mg DAILY ORAL 10/31/16 09:00 11/30/16 08:59 10/31/16 08:56 Lorazepam (Ativan 2mg/ml 1ml) 0.5 mg Q4H PRN IV For Anxiety 10/30/16 17:45 11/06/16 17:44 10/31/16 17:47 Metronidazole (Flagyl) 500 mg Q8HR ORAL 10/30/16 14:00 11/06/16 13:59 10/31/16 13:25 Morphine Sulfate (Morphine Sulfate) 2 mg Q4H PRN IVP Severe Pain (Pain Scale 7-10) 10/30/16 16:15 11/06/16 16:14 10/31/16 13:26 Olanzapine (ZyPREXA) 7.5 mg QHS ORAL 10/30/16 21:00 11/29/16 20:59 10/30/16 21:29 Ondansetron HCl (Zofran) 4 mg Q4H PRN IVP Nausea & Vomiting 10/29/16 15:00 11/28/16 14:59 Ranitidine HCl (Zantac) 150 mg QPM ORAL 10/31/16 16:30 11/30/16 16:29 10/31/16 17:46 Temazepam (Restoril) 15 mg HSPRN PRN ORAL Insomnia 10/29/16 21:00 11/05/16 20:59 10/31/16 01:27 Allergies: Coded Allergies: No Known Allergies (Unverified , 10/05/16) ROS Limited/Unobtainable: No Constitutional: Reports: no symptoms HEENT: Reports: no symptoms Cardiovascular: Reports: no symptoms Respiratory: Reports: no symptoms Gastrointestinal/Abdominal: Reports: abdominal pain Genitourinary: Reports: no symptoms Neurologic/Psychiatric: Reports: no symptoms Subjective 76 YO F admitted with abdominal pain. Now enteritis. Cover for Int Med-Dr Berry. Objective Last Vital Signs Date Time Temp Pulse Resp B/P Pulse Ox O2 Delivery O2 Flow Rate FiO2 10/31/16 16:00 99.2 101 17 118/72 95 Room Air Microbiology Date/Time Source Procedure Growth Status 10/29/16 12:30 Nasal Nares MRSA Culture - Final NO METHICILLIN RESISTANT STAPH AUREUS... Complete 10/29/16 12:30 Rectum VRE Culture - Final NO VANCOMYCIN RESISTANT ENTEROCOCCUS ... Complete Intake and Output 10/30/16 10/31/16 19:00 07:00 Intake Total 1600 ml 360 ml Balance 1600 ml 360 ml Intake Oral 1600 ml 360 ml # Voids 3 2 # Bowel Movements 2 Objective General: alert, cooperative, no distress, appears stated age Head: normocephalic, without obvious abnormality, atraumatic Eyes: conjunctivae/corneas clear. PERRL, EOM's intact Throat: lips, mucosa, and tongue normal. MMM Neck: supple, symmetrical, trachea midline, and no JVD Lungs: clear to auscultation bilaterally Heart: regular rate and rhythm, S1, S2 normal, no murmur, click, rub or gallop Abdomen: soft, tender to palpation epigastric, non-distended, bowel sounds normal; no masses or organomegaly Extremities: extremities normal, atraumatic, no cyanosis or edema Pulses: 2+ and symmetric Skin: skin color, texture, turgor normal; no rashes or lesions Neurologic: grossly normal, no focal deficits Assessment/Plan Problem List: (1) Enteritis Assessment & Plan: Continue oral cipro and flagyl. (2) Abdominal pain Assessment & Plan: Enteritis. See GI note (3) Humeral surgical neck fracture Assessment & Plan: Right; in arm sling. (4) Orbital floor (blow-out) closed fracture (5) Hypothyroidism (6) Depression Assessment & Plan: Continue zyprexa and prozac. (7) Acute shoulder pain (8) Iron deficiency Assessment & Plan: Cont IV iron. Status: not improved CAYETANO MATIAS Oct 31, 2016 18:28
[2016-10-31 20:00] VITALS: BP 100/60
[2016-11-01 02:00] VITALS: BP 134/73
[2016-11-01] MEDS: LORazepam Inj 2mg/ml 1ml IV PRN ×2 (02:44→12:17)
[2016-11-01 03:22] VITALS: BP 134/81
[2016-11-01 04:00] VITALS: BP 129/69
[2016-11-01] MEDS: metroNIDAZOLE 500mg tab ORAL SCH ×2 (05:41→14:30)
[2016-11-01 08:00] VITALS: BP 120/66
[2016-11-01] MEDS: Morphine Sulfate 2mg/ml Inj IVP PRN (09:13)
[2016-11-01] MEDS: Ciprofloxacin 500mg tab ORAL SCH (09:20)
--- NOTE | 2016-11-01 11:07 | GI Progress Note ---
Assessment/Plan Problems: (1) Abdominal pain ICD Codes: R10.9 - Unspecified abdominal pain SNOMED: 26599967, 405779671 (2) Depression ICD Codes: F32.9 - Major depressive disorder, single episode, unspecified SNOMED: 60113143 (3) Enteritis ICD Codes: K52.9 - Noninfective gastroenteritis and colitis, unspecified SNOMED: 96444654, 142682247 (4) Diarrhea ICD Codes: R19.7 - Diarrhea, unspecified SNOMED: 59163289, 367290368 (5) Non compliance with medical treatment ICD Codes: Z91.19 - Patient's noncompliance with other medical treatment and regimen SNOMED: 9149964 (6) Altered mental status ICD Codes: R41.82 - Altered mental status, unspecified SNOMED: 860374702 (7) Hypothyroidism ICD Codes: E03.9 - Hypothyroidism, unspecified SNOMED: 02608091 (8) Iron deficiency ICD Codes: E61.1 - Iron deficiency SNOMED: 83612874 Status: stable Status Narrative Discussed with Dr. Griffin. Assessment/Plan troponin negative lipase negative APCT review >> mild enteritis iron deficiency >> venofer x 1 elevated CEA 12.9 OB stool uncollected hep panel negative ok for DC per GI standpoint symptomatic treatment zofran prn IV hydration and electrolyte replacement adv to cardiac diet monitor H&H, transfuse prn H2 pain mgmt patient will benefit from a colonoscopy given anemia and elevated CEA, can be done outpatient >> refused. Subjective Subjective abdominal pain resolved c/o BUE pain Objective Last 24 Hour Vital Signs Date Time Temp Pulse Resp B/P Pulse Ox O2 Delivery O2 Flow Rate FiO2 11/01/16 08:00 97.9 79 20 120/66 93 Room Air 11/01/16 03:22 97.2 82 18 134/81 96 Room Air 11/01/16 03:02 98.2 11/01/16 02:00 97.7 72 19 134/73 93 Room Air 10/31/16 20:00 98.2 89 19 100/60 95 Room Air 10/31/16 19:41 99.2 10/31/16 16:00 99.2 101 17 118/72 95 Room Air 10/31/16 12:00 98.4 97 19 137/77 97 Room Air Intake and Output 10/31/16 11/01/16 19:00 07:00 Intake Total 780 ml Balance 780 ml Intake Oral 780 ml # Voids 2 2 Height (Feet): 5 Height (Inches): 5.00 Weight (Pounds): 161 General Appearance: no apparent distress, alert Cardiovascular: normal rate Respiratory/Chest: normal breath sounds, no respiratory distress Abdominal Exam: normal bowel sounds, non tender, soft Extremities: normal range of motion Dorothea Vincent N.P. Nov 01, 2016 11:07
[2016-11-01 11:33] LABS: BASOPHILS % (AUTO) 1.4 % (0.0-2.0); LYMPHOCYTES % (AUTO) 30.8 % (20.0-45.0); MEAN CORPUSCULAR HEMOGLOBIN 24.7 PG (27.0-31.0); MEAN CORPUSCULAR VOLUME 82 FL (80-99); MEAN PLATELET VOLUME 6.5 FL (6.5-10.1); MONOCYTES % (AUTO) 7.4 % (1.0-10.0); NEUTROPHILS % (AUTO) 59.4 % (45.0-75.0); PLATELET COUNT 373 K/UL (150-450); RED BLOOD COUNT 4.04 M/UL (4.20-5.40); RED CELL DISTRIBUTION WIDTH 18.5 % (11.6-14.8); WHITE BLOOD COUNT 6.6 K/UL (4.8-10.8)
[2016-11-01 11:45] LABS: ANION GAP 17 (5-15); CALCIUM 9.3 mg/dL (8.6-10.2); CARBON DIOXIDE 23 mEQ/L (20-30); CHLORIDE 101 mEQ/L (98-107); CREATININE 0.8 mg/dL (0.5-0.9); HEMOLYSIS 0; POTASSIUM 3.8 mEQ/L (3.4-4.9); SODIUM 141 mEQ/L (135-145)
[2016-11-01 12:00] VITALS: BP 134/69
--- NOTE | 2016-11-01 13:01 | Diagnostic Imaging Report ---
Indications: Pain, trauma Technique: Two views of the right shoulder Comparison: Right shoulder radiograph of 10/05/2016 Findings: Exam is somewhat limited, as patient unable tolerate a complete exam, for technologist. There is again demonstrated a severely comminuted impacted fracture of the right humeral head and neck, which involves the articular surface. There may be increased impaction and increased upward displacement of the fragments. In addition, the fracture may be more severely comminuted than on the prior exam. No new fracture is demonstrated. The distal shaft is intact. Impression: Positive for severely comminuted right humeral head/neck fracture, as described. This may be more impacted and more comminuted than on the previous study of 10/05/2016.
[2016-11-01] MEDS ORDERED: CIPROFLOXACIN500 M2 ORAL (15:34)
--- NOTE | 2016-11-01 15:35 | Pulmonology Progress Note ---
Assessment/Plan Problems: (1) Diarrhea (2) Enteritis (3) Depression (4) Hypothyroidism (5) Abdominal pain Assessment/Plan stool still pending on oral abx psych consult appreciated pt/ot Subjective ROS Limited/Unobtainable: Yes Interval Events: late note for 10/31 Constitutional: Reports: no symptoms HEENT: Repors: no symptoms Respiratory: Reports: no symptoms Cardiovascular: Reports: no symptoms Allergies: Coded Allergies: No Known Allergies (Unverified , 10/05/16) Objective Last 24 Hour Vital Signs Date Time Temp Pulse Resp B/P Pulse Ox O2 Delivery O2 Flow Rate FiO2 11/01/16 08:00 97.9 79 20 120/66 93 Room Air 11/01/16 03:22 97.2 82 18 134/81 96 Room Air 11/01/16 03:02 98.2 11/01/16 02:00 97.7 72 19 134/73 93 Room Air 10/31/16 20:00 98.2 89 19 100/60 95 Room Air 10/31/16 19:41 99.2 10/31/16 16:00 99.2 101 17 118/72 95 Room Air Intake and Output 10/31/16 11/01/16 19:00 07:00 Intake Total 780 ml Balance 780 ml Intake Oral 780 ml # Voids 2 2 General Appearance: WD/WN HEENT: normocephalic Respiratory/Chest: chest wall non-tender, normal breath sounds Cardiovascular: normal peripheral pulses Abdomen: normal bowel sounds, soft, non tender Extremities: no cyanosis Skin: no rash Laboratory Tests 11/01/16 09:45: White Blood Count 6.6, Red Blood Count 4.04L, Hemoglobin 10.0L, Hematocrit 33.3L , Mean Corpuscular Volume 82, Mean Corpuscular Hemoglobin 24.7L, Mean Corpuscular Hemoglobin Concent 30.0L, Red Cell Distribution Width 18.5H, Platelet Count 373, Mean Platelet Volume 6.5, Neutrophils (%) (Auto) 59.4, Lymphocytes (%) (Auto) 30.8, Monocytes (%) (Auto) 7.4, Eosinophils (%) (Auto) 1.0, Basophils (%) (Auto) 1.4, Sodium Level 141, Potassium Level 3.8, Chloride Level 101, Carbon Dioxide Level 23, Anion Gap 17H, Blood Urea Nitrogen 16, Creatinine 0.8, Estimat Glomerular Filtration Rate , Glucose Level 112H, Calcium Level 9.3 Current Medications Medications (Trade) Dose Ordered Sig/Lorna Route PRN Reason Start Time Stop Time Status Last Admin Dose Admin Acetaminophen/ Hydrocodone Bitart ([place] 5/325) 1 tab Q4H PRN ORAL For Pain if able to take orals 10/30/16 16:30 11/06/16 16:29 11/01/16 02:01 Acetaminophen/ Hydrocodone Bitart ([place] 7.5/325) 1 ea Q4H PRN ORAL Moderate Breakthru Pain (5-7) 10/30/16 16:30 11/06/16 16:29 Ciprofloxacin (Cipro 500mg tab) 500 mg Q12HR ORAL 10/31/16 21:00 11/06/16 17:59 11/01/16 09:20 Dextrose (Dextrose 50%) STAT PRN IV Hypoglycemia 10/29/16 15:00 11/28/16 14:59 Ferrous Sulfate (Feosol) 325 mg THREE TIMES A DAY ORAL 10/30/16 14:00 11/29/16 13:59 11/01/16 12:17 Fluoxetine HCl (PROzac) 20 mg DAILY ORAL 10/31/16 09:00 11/30/16 08:59 11/01/16 09:20 Levothyroxine Sodium (Synthroid) 88 mcg DAILY@0630 ORAL 11/01/16 06:30 12/01/16 06:29 Lorazepam (Ativan 2mg/ml 1ml) 0.5 mg Q4H PRN IV For Anxiety 10/30/16 17:45 11/06/16 17:44 11/01/16 12:17 Metronidazole (Flagyl) 500 mg Q8HR ORAL 10/30/16 14:00 11/06/16 13:59 11/01/16 14:30 Morphine Sulfate (Morphine Sulfate) 2 mg Q4H PRN IVP Severe Pain (Pain Scale 7-10) 10/30/16 16:15 11/06/16 16:14 11/01/16 09:13 Olanzapine (ZyPREXA) 7.5 mg QHS ORAL 10/30/16 21:00 11/29/16 20:59 10/31/16 01:00 Ondansetron HCl (Zofran) 4 mg Q4H PRN IVP Nausea & Vomiting 10/29/16 15:00 11/28/16 14:59 Ranitidine HCl (Zantac) 150 mg QPM ORAL 10/31/16 16:30 11/30/16 16:29 10/31/16 17:46 Temazepam (Restoril) 15 mg HSPRN PRN ORAL Insomnia 10/29/16 21:00 11/05/16 20:59 10/31/16 01:27 KENAN VERDE Nov 01, 2016 15:35
[2016-11-01] MEDS ORDERED: FLUOXETINE HCL20 MG ORAL (15:36)
[2016-11-01] MEDS ORDERED: FEOSOL1 TAB ORAL (15:36)
[2016-11-01] MEDS ORDERED: OLANZAPINE5 MG ORAL (15:37)
[2016-11-01] MEDS ORDERED: FLAGYL375 MG ORAL (15:37)
[2016-11-01] MEDS ORDERED: RESTORIL15 MG ORAL (15:38)
[2016-11-01] MEDS ORDERED: ZANTAC150 MG ORAL (15:38)
--- NOTE | 2016-11-01 15:38 | Pulmonology Progress Note ---
Assessment/Plan Problems: (1) Diarrhea (2) Enteritis (3) Depression (4) Hypothyroidism (5) Abdominal pain Assessment/Plan all noted colonoscopy as outpatient on oral abx psych consult appreciated pt/ot Subjective ROS Limited/Unobtainable: Yes Interval Events: no new complains Allergies: Coded Allergies: No Known Allergies (Unverified , 10/05/16) Objective Last 24 Hour Vital Signs Date Time Temp Pulse Resp B/P Pulse Ox O2 Delivery O2 Flow Rate FiO2 11/01/16 08:00 97.9 79 20 120/66 93 Room Air 11/01/16 03:22 97.2 82 18 134/81 96 Room Air 11/01/16 03:02 98.2 11/01/16 02:00 97.7 72 19 134/73 93 Room Air 10/31/16 20:00 98.2 89 19 100/60 95 Room Air 10/31/16 19:41 99.2 10/31/16 16:00 99.2 101 17 118/72 95 Room Air Intake and Output 10/31/16 11/01/16 19:00 07:00 Intake Total 780 ml Balance 780 ml Intake Oral 780 ml # Voids 2 2 General Appearance: WD/WN HEENT: normocephalic, atraumatic Respiratory/Chest: chest wall non-tender, lungs clear Breasts: no masses Cardiovascular: normal peripheral pulses Abdomen: normal bowel sounds, soft, non tender Genitourinary: normal external genitalia Extremities: no cyanosis Skin: no rash, no lesions Laboratory Tests 11/01/16 09:45: White Blood Count 6.6, Red Blood Count 4.04L, Hemoglobin 10.0L, Hematocrit 33.3L , Mean Corpuscular Volume 82, Mean Corpuscular Hemoglobin 24.7L, Mean Corpuscular Hemoglobin Concent 30.0L, Red Cell Distribution Width 18.5H, Platelet Count 373, Mean Platelet Volume 6.5, Neutrophils (%) (Auto) 59.4, Lymphocytes (%) (Auto) 30.8, Monocytes (%) (Auto) 7.4, Eosinophils (%) (Auto) 1.0, Basophils (%) (Auto) 1.4, Sodium Level 141, Potassium Level 3.8, Chloride Level 101, Carbon Dioxide Level 23, Anion Gap 17H, Blood Urea Nitrogen 16, Creatinine 0.8, Estimat Glomerular Filtration Rate , Glucose Level 112H, Calcium Level 9.3 Current Medications Medications (Trade) Dose Ordered Sig/Lorna Route PRN Reason Start Time Stop Time Status Last Admin Dose Admin Acetaminophen/ Hydrocodone Bitart ([place] 5/325) 1 tab Q4H PRN ORAL For Pain if able to take orals 10/30/16 16:30 11/06/16 16:29 11/01/16 02:01 Acetaminophen/ Hydrocodone Bitart ([place] 7.5/325) 1 ea Q4H PRN ORAL Moderate Breakthru Pain (5-7) 10/30/16 16:30 11/06/16 16:29 Ciprofloxacin (Cipro 500mg tab) 500 mg Q12HR ORAL 10/31/16 21:00 11/06/16 17:59 11/01/16 09:20 Dextrose (Dextrose 50%) STAT PRN IV Hypoglycemia 10/29/16 15:00 11/28/16 14:59 Ferrous Sulfate (Feosol) 325 mg THREE TIMES A DAY ORAL 10/30/16 14:00 11/29/16 13:59 11/01/16 12:17 Fluoxetine HCl (PROzac) 20 mg DAILY ORAL 10/31/16 09:00 11/30/16 08:59 11/01/16 09:20 Levothyroxine Sodium (Synthroid) 88 mcg DAILY@0630 ORAL 11/01/16 06:30 12/01/16 06:29 Lorazepam (Ativan 2mg/ml 1ml) 0.5 mg Q4H PRN IV For Anxiety 10/30/16 17:45 11/06/16 17:44 11/01/16 12:17 Metronidazole (Flagyl) 500 mg Q8HR ORAL 10/30/16 14:00 11/06/16 13:59 11/01/16 14:30 Morphine Sulfate (Morphine Sulfate) 2 mg Q4H PRN IVP Severe Pain (Pain Scale 7-10) 10/30/16 16:15 11/06/16 16:14 11/01/16 09:13 Olanzapine (ZyPREXA) 7.5 mg QHS ORAL 10/30/16 21:00 11/29/16 20:59 10/31/16 01:00 Ondansetron HCl (Zofran) 4 mg Q4H PRN IVP Nausea & Vomiting 10/29/16 15:00 11/28/16 14:59 Ranitidine HCl (Zantac) 150 mg QPM ORAL 10/31/16 16:30 11/30/16 16:29 10/31/16 17:46 Temazepam (Restoril) 15 mg HSPRN PRN ORAL Insomnia 10/29/16 21:00 11/05/16 20:59 10/31/16 01:27 KENAN VERDE Nov 01, 2016 15:38
--- NOTE | 2016-11-01 16:13 | Internal Med Progress Note ---
Subjective Date of Service: Nov 01, 2016 Physician Name Matias,Cayetano Attending Physician Josafat Berry MD Current Medications Medications (Trade) Dose Ordered Sig/Lorna Route PRN Reason Start Time Stop Time Status Last Admin Dose Admin Acetaminophen/ Hydrocodone Bitart ([place] 5/325) 1 tab Q4H PRN ORAL For Pain if able to take orals 10/30/16 16:30 11/06/16 16:29 11/01/16 02:01 Acetaminophen/ Hydrocodone Bitart ([place] 7.5/325) 1 ea Q4H PRN ORAL Moderate Breakthru Pain (5-7) 10/30/16 16:30 11/06/16 16:29 Ciprofloxacin (Cipro 500mg tab) 500 mg Q12HR ORAL 10/31/16 21:00 11/06/16 17:59 11/01/16 09:20 Dextrose (Dextrose 50%) STAT PRN IV Hypoglycemia 10/29/16 15:00 11/28/16 14:59 Ferrous Sulfate (Feosol) 325 mg THREE TIMES A DAY ORAL 10/30/16 14:00 11/29/16 13:59 11/01/16 12:17 Fluoxetine HCl (PROzac) 20 mg DAILY ORAL 10/31/16 09:00 11/30/16 08:59 11/01/16 09:20 Levothyroxine Sodium (Synthroid) 88 mcg DAILY@0630 ORAL 11/01/16 06:30 12/01/16 06:29 Lorazepam (Ativan 2mg/ml 1ml) 0.5 mg Q4H PRN IV For Anxiety 10/30/16 17:45 11/06/16 17:44 11/01/16 12:17 Metronidazole (Flagyl) 500 mg Q8HR ORAL 10/30/16 14:00 11/06/16 13:59 11/01/16 14:30 Morphine Sulfate (Morphine Sulfate) 2 mg Q4H PRN IVP Severe Pain (Pain Scale 7-10) 10/30/16 16:15 11/06/16 16:14 11/01/16 09:13 Olanzapine (ZyPREXA) 7.5 mg QHS ORAL 10/30/16 21:00 11/29/16 20:59 10/31/16 01:00 Ondansetron HCl (Zofran) 4 mg Q4H PRN IVP Nausea & Vomiting 10/29/16 15:00 11/28/16 14:59 Ranitidine HCl (Zantac) 150 mg QPM ORAL 10/31/16 16:30 11/30/16 16:29 10/31/16 17:46 Temazepam (Restoril) 15 mg HSPRN PRN ORAL Insomnia 10/29/16 21:00 11/05/16 20:59 10/31/16 01:27 Allergies: Coded Allergies: No Known Allergies (Unverified , 10/05/16) ROS Limited/Unobtainable: No Constitutional: Reports: no symptoms HEENT: Reports: no symptoms Cardiovascular: Reports: no symptoms Respiratory: Reports: no symptoms Gastrointestinal/Abdominal: Reports: abdominal pain Genitourinary: Reports: no symptoms Neurologic/Psychiatric: Reports: no symptoms Subjective 76 YO F admitted with abdominal pain. Now enteritis. Cover for Int Med-Dr Berry. Await transfer to [facility] today. Objective Last Vital Signs Date Time Temp Pulse Resp B/P Pulse Ox O2 Delivery O2 Flow Rate FiO2 11/01/16 12:00 97.7 92 18 134/69 96 Room Air Laboratory Tests Test 11/01/16 09:45 White Blood Count 6.6 K/UL (4.8-10.8) Red Blood Count 4.04 M/UL (4.20-5.40) L Hemoglobin 10.0 G/DL (12.0-16.0) L Hematocrit 33.3 % (37.0-47.0) L Mean Corpuscular Volume 82 FL (80-99) Mean Corpuscular Hemoglobin 24.7 PG (27.0-31.0) L Mean Corpuscular Hemoglobin Concent 30.0 G/DL (32.0-36.0) L Red Cell Distribution Width 18.5 % (11.6-14.8) H Platelet Count 373 K/UL (150-450) Mean Platelet Volume 6.5 FL (6.5-10.1) Neutrophils (%) (Auto) 59.4 % (45.0-75.0) Lymphocytes (%) (Auto) 30.8 % (20.0-45.0) Monocytes (%) (Auto) 7.4 % (1.0-10.0) Eosinophils (%) (Auto) 1.0 % (0.0-3.0) Basophils (%) (Auto) 1.4 % (0.0-2.0) Sodium Level 141 mEQ/L (135-145) Potassium Level 3.8 mEQ/L (3.4-4.9) Chloride Level 101 mEQ/L (98-107) Carbon Dioxide Level 23 mEQ/L (20-30) Anion Gap 17 (5-15) H Blood Urea Nitrogen 16 mg/dL (7-23) Creatinine 0.8 mg/dL (0.5-0.9) Estimat Glomerular Filtration Rate mL/min (>60) Glucose Level 112 mg/dL (74-106) H Calcium Level 9.3 mg/dL (8.6-10.2) Intake and Output 10/31/16 11/01/16 19:00 07:00 Intake Total 780 ml Balance 780 ml Intake Oral 780 ml # Voids 2 2 Objective General: alert, cooperative, no distress, appears stated age Head: normocephalic, without obvious abnormality, atraumatic Eyes: conjunctivae/corneas clear. PERRL, EOM's intact Throat: lips, mucosa, and tongue normal. MMM Neck: supple, symmetrical, trachea midline, and no JVD Lungs: clear to auscultation bilaterally Heart: regular rate and rhythm, S1, S2 normal, no murmur, click, rub or gallop Abdomen: soft, tender to palpation epigastric, non-distended, bowel sounds normal; no masses or organomegaly Extremities: extremities normal, atraumatic, no cyanosis or edema Pulses: 2+ and symmetric Skin: skin color, texture, turgor normal; no rashes or lesions Neurologic: grossly normal, no focal deficits Assessment/Plan Problem List: (1) Enteritis Assessment & Plan: Continue oral cipro and flagyl. (2) Abdominal pain Assessment & Plan: Enteritis. See GI note (3) Humeral surgical neck fracture Assessment & Plan: Right; in arm sling. (4) Orbital floor (blow-out) closed fracture (5) Hypothyroidism (6) Depression Assessment & Plan: Continue zyprexa and prozac. (7) Acute shoulder pain (8) Iron deficiency Assessment & Plan: Cont IV iron. Status: stable Assessment/Plan Discharge to [facility] today. CAYETANO MATIAS Nov 01, 2016 16:13
--- NOTE | 2016-11-02 14:32 | Discharge Summary ---
Discharge Summary Hospital Course Date of Admission Oct 29, 2016 at 12:25 Date of Discharge Nov 01, 2016 at 16:30 Admitting Diagnosis abdominal pain HPI Iris Montalvo is a 76 year old female who was admitted on Oct 29, 2016 at 12:25 for Abdominal Pain Hospital Course [id number] Discharge Discharge Disposition Patient was discharged to SNF/Subacute Facility(03) Discharge Diagnoses: Jesika Emerson NP Nov 02, 2016 14:31
--- NOTE | 2016-11-03 02:28 | Discharge Summary 2 SIG ---
DATE OF ADMISSION: 10/29/2016 DATE OF DISCHARGE: 11/01/2016 CONSULTANTS: 1. Yasmani Griffin M.D. 2. Vasiliy Carrillo M.D. 3. Soheila Mcneal M.D. BRIEF HOSPITAL COURSE: The patient is a 76-year-old female, who presented complaining of abdominal pain. She was admitted to [facility] on 09/27/2016 for syncopal episode and had a nondisplaced humeral surgical neck fracture and was also found to have an orbital floor closed fracture in the right eye. She was discharged to [facility] and according to staff at the correction, the patient began to experience abdominal pain and had nausea and diarrhea and had not been eating well. Evaluation at ED was done. CT scan showed evidence of enteritis. Chest x-ray was normal. She was still complaining of pain after pain medications, fluids, and hydration. The patient is admitted for further workup. Dr. Griffin was consulted. Lipase was negative. She was given symptomatic treatment with Zofran as needed. Diet was slowly advanced. She was also given H2 derick and was recommended would benefit from a colonoscopy, which can be done as an outpatient. She was followed by Dr. Mcneal as she has a history of cognitive impairment, behavioral issues, depression, anxiety disorder, and the patient became combative towards staff and nurses. During the evaluation, the patient is very irritable, angry, and presented with paranoid ideation. She also endorsed impairment of cognition and memory attention. She is not able to be engaged during evaluation. She was diagnosed with major depressive disorder with cognitive impairment and was started on Zyprexa 7.5 mg at bedtime, fluoxetine 20 mg daily, and Ativan p.r.n. She was given IV hydration and ciprofloxacin. Shoulder x-ray was positive for severely comminuted right humeral head and neck fracture. She was given ciprofloxacin and Flagyl. Anemia workup showed iron deficiency and was given Venofer. She continued to be on right arm sling and was eventually discharged back to [facility]. FINAL DIAGNOSES: 1. Acute abdominal pain secondary to enteritis. 2. Humeral surgical neck fracture. 3. Orbital floor closed fracture. 4. Hypothyroidism. 5. Major depressive disorder. 6. Iron deficiency anemia. 7. Hypothyroidism. Josafat Berry M.D. I have been assigned to dictate discharge summary on this account and I was not involved in the patient's management. Jesika Emerson N.P. DR: VINICIO JOB#: [id number] CC:
== END 2016-11-01 16:30 | DRG 392 ==
LOC: EMR 10:20 → OBSVTOIN 12:25 → 4E 12:25 → EDBEDREQ 12:45 → 4E 15:47
DX: K52.9 Noninfective gastroenteritis and colitis, unspecified (principal); E11.9 Type 2 diabetes mellitus without complications; F32.9 Major depressive disorder, single episode, unspecified; E03.9 Hypothyroidism, unspecified; D50.9 Iron deficiency anemia, unspecified; K57.90 Diverticulosis of intestine, part unspecified, without perforation or abscess without bleeding; S42.214D Unspecified nondisplaced fracture of surgical neck of right humerus, subsequent encounter for fracture with routine healing; S02.31XD Fracture of orbital floor, right side, subsequent encounter for fracture with routine healing; Z91.19 Patient's noncompliance with other medical treatment and regimen
CPT/HCPCS: 36415; 71010; 74177; 80048; 80053; 81003; 82378; 82550; 82553; 82607; 82728; 82746; 83540; 83550; 83690; 83735; 84100; 84439; 84443; 84484; 85025; 85044; 85610; 85730; 87081; 93005; J2405